=== PATIENT | female | born 1985 | race Caucasian/White ===

== ENCOUNTER 2020-11-15 19:05 | Emergency (ER) | payer MEDICAID, SELFPAY ==
[2020-11-15 19:08] VITALS: BP 118/78; PULSE 62; RESP 18; TEMP 37.1; O2SAT 95
--- NOTE | 2020-11-15 19:21 | ED.GENADUL_ITS ---
Discharge Plan Disposition Patient Disposition: HOME Condition: Stable Discharge Details Clinical Impression: Clavicle fracture Primary Care Provider: [place] Self ED Provider: Rosita Polo Home Meds and New Rx's Prescriptions: New oxycodone 5 mg tablet 5 mg PO Q6H PRN (Reason: pain) Qty: 10 RF: 0 No Action acetaminophen 500 mg Tablet 1,000 mg PO Q6H RF: 0 ibuprofen 200 mg Tablet 600 mg PO Q6H RF: 0 Discharge Instructions Instructions: Clavicle Fracture (ED) Additional Instructions: Rest, ice, and elevate the affected area as much as possible. Alternate tylenol and motrin as needed and directed for pain. Take the oxycodone for pain not relieved with Tylenol or Motrin. Follow-up with orthopedics within the next 1 to 2 weeks. Return immediately to the emergency department if you develop any worsening or new concerning symptoms. Referrals: Denny Cortez MD [ [facility] STAFF PHYSICIAN] - Discharge Data Discharge Date/Time-TO BE ENTERED AT DEPARTURE: 11/15/20 21:20 Discharge Physician: Rosita Polo Medical Decision Making 35-year-old female with no significant past medical history presents with left clavicle pain after fall and direct blow left clavicle and shoulder while cross- country skiing prior to arrival. No head injury. No complaint of difficulty breathing. Vitals within normal limits. She has crepitus and crunching sensation to palpation of left mid to lateral clavicle. There are no open wounds to left clavicle noted. No obvious significant deformities noted. She is holding her left upper extremity close to her body. She is neurovascularly intact. She has no midline spinal tenderness. No evidence of head trauma. Lungs clear bilaterally without tenderness to palpation of ribs. Abdomen soft and nontender without ecchymosis. Remainder of extremities without pain with range of motion or deformity. Suspect most likely left clavicle fracture. A dose of morphine given prior to placement of sling. Patient referred for clavicle x-ray. Clavicle x-ray notes a comminuted and displaced distal left clavicle fracture. Discussed with orthopedics and agrees with sling and patient will likely need surgical repair. Will discharge patient to home with oxycodone to go. Patient placed on orthopedic follow-up list. Medical Records Medical records reviewed: Yes I reviewed the patient's medical records. Imaging Data Radiologic Study: Radiologist's impression: XR Left Clavicle, Complete Exam date and time: 11/15/2020 8:01 PM Age: 35 years old Clinical indication: Injury or trauma; Fall; Blunt trauma (contusions or hematomas); Shoulder; Left; Injury details: Clavicle TECHNIQUE: Imaging protocol: XR Left clavicle complete. Any number of views. COMPARISON: No relevant prior studies available. FINDINGS: Bones/joints: There is a moderately displaced fracture of the distal aspect of the left clavicle with approximately 1.6 cm inferior displacement of the distal fracture fragment and mild overriding. There is comminution of the fracture with at least three comminuted fragments visualized, the largest measuring 0.9 x 3.6 cm. No healing callus formation is identified. There is no evidence for subluxation at the left acromioclavicular joint. Soft tissues: Normal. IMPRESSION: Comminuted and displaced distal left clavicle fracture, as described above. HPI General Mode of arrival: EMS . Date/Time Provider Initiated Documentation: 11/15/20 19:32 . Limitations to Documentation: no limitations . Information obtained by: patient . HPI Narrative: Patient is a 35-year-old female who presents with left clavicle pain after fall while cross-country skiing. Patient states she was skiing down a hill in the dark when she slipped and fell onto her left shoulder. She states she felt an instant crunch and knew immediately that she broke her clavicle. She states she was able to get up and ambulate and walk to her house. She denies any head injury, LOC, vomiting, chest pain, rib pain, difficulty breathing, abdominal pain, hip pain, left leg, right arm or right leg injury or pain. She received fentanyl in route per EMS and has relief of pain. She denies any chance of and states she has an IUD and has not been sexually active for the past 2 months. Related Data Home Medications Medication Instructions Recorded Confirmed oxycodone 5 mg PO Q6H PRN #10 tab 11/15/20 11/16/20 acetaminophen 1,000 mg PO Q6H 11/16/20 11/16/20 ibuprofen 600 mg PO Q6H 11/16/20 11/16/20 Previous Rx's Medication Instructions Recorded oxycodone 5 mg PO Q6H PRN #10 tab 11/15/20 Allergies Allergy/AdvReac Type Severity Reaction Status Date / Time No Known Allergies Allergy Unverified 11/16/20 15:40 General Stated Complaint: Trauma TRENT: 3 Review of Systems All systems reviewed & are unremarkable except as noted in HPI and below Constitutional Constitutional: Reports as per HPI, Denies chills and Denies fever(s) Eyes Eyes: Denies blurry vision ENT Ears, Nose, Mouth, and Throat: Denies dizziness, Denies sore throat and Denies throat swelling Cardiovascular Cardiovascular: Denies chest pain and Denies dyspnea Respiratory Respiratory: Denies cough and Denies dyspnea Gastrointestinal Gastrointestinal: Denies abdominal pain, Denies diarrhea and Denies vomiting Genitourinary Genitourinary: Denies hematuria and Denies dysuria Musculoskeletal Musculoskeletal: Denies back pain and Denies numbness Integumentary/Breasts Skin/Breast: Denies lesions and Denies rash Neurologic Neurologic: Denies dizziness, Denies localized weakness and Denies numbness Allergic/Immunologic Allergic/Immunologic: Denies throat swelling [facility] Medical History No significant past medical history Surgical History No significant past surgical history Social History Smoking/Tobacco Use Status: Never Smoking risk assessment performed?: Yes Alcohol Intake: current Alcohol Intake frequency: a few times a week Drug use: Never Substance use type: does not use Current gender identity: female Do you feel safe at home: Yes Do you feel safe in your relationship?: Yes Exam Const General: cooperative and healthy appearing Orientation: alert and awake [facility] Head: normal to inspection, no palpable skull fracture, normocephalic and atraumatic Ears: hearing grossly normal bilaterally and external ears normal General nose exam: external nose normal Face and sinus: normal facial exam Mouth: oral mucosae normal Eyes General: appearance normal, both eyes and all related structures Eyelids: eyelids normal Pupils: PERRL EOM: EOM intact bilaterally Neck Neck: normal visual inspection Lymphatic: no lymphadenopathy noted Chest Chest: normal inspection of the chest, normal palpation of entire chest wall and no tenderness Resp Effort & Inspection: normal respiratory effort and able to speak in complete sentences Auscultation: clear to auscultation bilaterally Cardio Rate: regular rate Rhythm: regular rhythm GI Inspection: normal to inspection and no abdominal wall ecchymosis Palpation: soft, not firm, no guarding, no hepatosplenomegaly, no masses and nontender Auscultation: normal bowel sounds Back/Spine/Pelvis Cervical Spine: No cervical spinal tenderness Thoracic/Lumbar Spine: thoracic and lumbar spine normal to inspection, No thoracic spinal tenderness and No lumbar spinal tenderness Pelvis: no pain with anterior-posterior compression Skin General skin exam: no rashes or lesions noted Neuro General: patient alert and patient awake Cognition: normal cognition Speech: speech normal Motor: muscle tone normal throughout Sensory Exam: no sensory deficits noted Extrem Other: Tenderness to palpation overlying mid to lateral left clavicle with crepitus and crunching sensation noted to palpation. There is no tenting of skin or open wounds noted to left clavicle. No tenderness to palpation of left upper arm, elbow or wrist. Left radial pulse intact. Normal capillary refill left upper extremity. Right upper, bilateral lower extremities without pain with range of motion, deformity or tenderness to palpation. Psych Appearance: grossly normal Mental Status: mental status grossly normal Speech and Movement: speech and movement normal Affect: normal affect Thought Process: normal Course Vital Signs Vital signs: Vital Signs Temperature 98.8 F 11/15/20 19:08 Pulse 62 11/15/20 19:08 Respiratory Rate 18 11/15/20 19:08 Blood Pressure 118/78 11/15/20 19:08 Pulse Oximetry 95 11/15/20 19:08 Temperature 98.8 F 11/15/20 19:08 Temperature Source Skin 11/15/20 19:08 Pulse 62 11/15/20 19:08 Respiratory Rate 18 11/15/20 19:08 Blood Pressure 118/78 11/15/20 19:08 Blood Pressure Position Sitting 11/15/20 19:08 Pulse Oximetry 95 11/15/20 19:08 Oxygen Delivery Method Room Air 11/15/20 19:08 Oxygen Flow Rate 0 11/15/20 19:08 Pain Level 6 11/15/20 19:08
--- NOTE | 2020-11-15 20:02 | DI.RAD_ITS ---
EXAM: XR CLAVICLE LT CLINICAL HISTORY: s/p fall while skiing, suspect fx. TECHNIQUE: 2D digital imaging was performed. COMPARISON: No exams were available for comparison FINDINGS: There is a comminuted fracture at the junction of the mid and lateral thirds of the clavicle with dis placement of the fracture fragments. The AC joint is not distracted. No osseous lesions. IMPRESSION: DATA REPOSITORY: RADIATION DOSE DELIVERED:
--- NOTE | 2020-11-15 20:11 | DI.VRAD_ITS ---
Addendum created by Yosi Roe MD on 11/15/2020 8:16:02 PM EST: Findings were discussed with Dr. Rosita Polo at 11/15/2020 8:15 PM EST. Initial report created on 11/15/2020 8:11:07 PM EST: PROCEDURE INFORMATION: Exam: XR Left Clavicle, Complete Exam date and time: 11/15/2020 8:01 PM Age: 35 years old Clinical indication: Injury or trauma; Fall; Blunt trauma (contusions or hematomas); Shoulder; Left; Injury details: Clavicle TECHNIQUE: Imaging protocol: XR Left clavicle complete. Any number of views. COMPARISON: No relevant prior studies available. FINDINGS: Bones/joints: There is a moderately displaced fracture of the distal aspect of the left clavicle with approximately 1.6 cm inferior displacement of the distal fracture fragment and mild overriding. There is comminution of the fracture with at least three comminuted fragments visualized, the largest measuring 0.9 x 3.6 cm. No healing callus formation is identified. There is no evidence for subluxation at the left acromioclavicular joint. Soft tissues: Normal. IMPRESSION: Comminuted and displaced distal left clavicle fracture, as described above. Dictated and Authenticated by: Yosi Roe MD. Ordering:NEGRO Becker MD
[2020-11-15] MEDS: Ondansetron O.D.T. 4 MG TABEF, 3 TABS/BTL PO (20:59)
[2020-11-15 21:02] VITALS: BP 119/80; PULSE 70; RESP 16; TEMP 36.7; O2SAT 100
--- NOTE | 2020-11-15 21:50 | NUR.NOTE ---
sling applied to left armNursing Note:
== END 2020-11-15 21:20 | disposition home or self-care (01) ==
LOC: ER 20:15
PROVIDERS: Emergency Provider Physician Assistant; PCP Naturopath
DX: S42.032A Displaced fracture of lateral end of left clavicle, initial encounter for closed fracture (principal); V00.321A Fall from snow-skis, initial encounter; Y93.24 Activity, cross country skiing
CPT/HCPCS: 81025; 96374; 99283; 73000; 99284

== ENCOUNTER 2020-11-16 09:49 | Outpatient (CLI) | payer MEDICAID, SELFPAY ==
[2020-11-18 15:56] LABS: COVID-19 RT-PCR UVMMC Result Negative (Negative)
== END 2020-11-16 10:09 ==
PROVIDERS: PCP Naturopath; Visit Provider Student in an Organized Health Care Education/Training Program
DX: Z11.59 Encounter for screening for other viral diseases (principal); Z01.818 Encounter for other preprocedural examination
CPT/HCPCS: U0003

== ENCOUNTER 2020-11-21 08:05 | Day surgery (SDC) | payer MEDICAID, SELFPAY ==
[2020-11-21] VITALS (10 sets, daily range): BP systolic 90–124; BP diastolic 54–78; PULSE 54–69; RESP 12–18; TEMP 36–37.1; O2SAT 95–100
--- NOTE | 2020-11-21 10:15 | DI.RAD_ITS ---
EXAM: XR CLAVICLE LT CLINICAL HISTORY: left clavical fracture TECHNIQUE: 2D and realtime digital imaging was performed. CONTRAST MATERIAL: Refer to procedure report. COMPARISON: CR,XR XR CLAVICLE LT from 11/15/2020 FINDINGS: Fluoroscopy was provided for Dr. Cortez during the performance of a reduction and internal fixatio n of the comminuted left clavicular fracture. Please refer to the procedure report for complete deta ils. Fluoro time: 12.2 second IMPRESSION: RADIATION DOSE DELIVERED:
[2020-11-21] MEDS: Lactated Ringers 1,000 ML 80 ML IV (11:14)
--- NOTE | 2020-11-21 11:15 | HPE_ITS ---
Date of service: 11/21/20 Time of Service: 11:15 Assessment and Plan Assessment and plan (1) Closed left clavicular fracture: Status: Acute Assessment and plan: Arely is a 35-year-old who suffered a left clavicle fracture. Given her young age, active lifestyle, and fracture displaced with comminution, I did recommend open reduction and internal fixation. I previously discussed the surgery with her over the phone. Today I also reviewed the surgery. I discussed the risk of the procedure to include bleeding, infection, pain, stiffness, damage to nerves and vessels, damage to muscles and tendons, malunion, nonunion, hardware prominence, hardware failure. All of her questions were answered. After thorough discussion of the surgery and these risk, she elects to proceed. Qualifiers: Encounter type: initial encounter Clavicle location: shaft Fracture alignment: displaced Qualified Code(s): S42.022A - Displaced fracture of shaft of left clavicle, initial encounter for closed fracture History of Present Illness History of Present Illness Chief Complaint: Left Clavicle Fracture Chest pain or shortness of breath Narrative: Vaughn is a 35-year-old active female who fell to her left side. She suffered a clavicle fracture was diagnosed with emergency department. This fracture had significant comminution and displacement. I discussed the case with Vaughn over the phone. She had significant pain and felt will be admitted with daily living activities. She denies numbness or tingling down the arm. Reason for continued she has no other medical conditions. She has been using ibuprofen primarily for pain control. She denies any chest pain or shortness of breath. She has had no sick contacts. Review of Systems All systems reviewed & are unremarkable except as noted in HPI and below [facility] Medical History (Updated 11/21/20 @ 10:41 by Natalia Stringer) No significant past medical history Surgical History (Updated 11/21/20 @ 10:41 by Natalia Stringer) No significant past surgical history Social History Smoking/Tobacco Use Status: Never Smoking risk assessment performed?: Yes Alcohol Intake: current Alcohol Intake frequency: a few times a week Drug use: Never Substance use type: does not use Current gender identity: female Do you feel safe at home: Yes Do you feel safe in your relationship?: Yes Meds Home Medications and Allergies Home Medications Medication Instructions Recorded Confirmed Type acetaminophen 1,000 mg PO Q6H 11/16/20 11/21/20 History ibuprofen 600 mg PO Q6H 11/16/20 11/21/20 History oxycodone 5 mg PO Q8H PRN 11/21/20 11/21/20 History Allergies Allergy/AdvReac Type Severity Reaction Status Date / Time No Known Allergies Allergy Unverified 11/16/20 15:40 Exam Const General: cooperative, healthy appearing, comfortable and no acute distress Nutritional Appearance: average body habitus Orientation: alert, awake and oriented x3 Resp Auscultation: clear to auscultation bilaterally Cardio Rate: regular rate Rhythm: regular rhythm Extrem Other: Notable deformity to the left clavicle. No overlying skin changes or disruptions. Results Imaging Imaging Studies: X-ray of the left clavicle shows significant comminution with multiple pieces of displacement of the fragments both super iorly and with shortening. Last Vital Signs Temp 37.1 C 11/21/20 10:44 Pulse 59 L 11/21/20 10:44 Resp 16 11/21/20 10:44 BP 118/78 11/21/20 10:44 Pulse Ox 96 11/21/20 10:44
[2020-11-21] MEDS: ceFAZolin 2 GM/50 ML BAG IVPB (11:42)
[2020-11-21] MEDS: Bupivacaine 0.25% Pres-Free 30 ML VIAL (12:52)
[2020-11-21] MEDS: EPINEPHrine 1 MG/ML AMP pres-free (12:53)
--- NOTE | 2020-11-21 13:56 | PDOC.DSDIS_ITS ---
Discharge Plan Disposition Patient Disposition: HOME Condition: Good Discharge Details Reason For Visit: ORIF left clavicle Attending Provider: Denny Cortez Primary Care Provider: [place] Self Home Meds and New Rx's Prescriptions: Continued acetaminophen 500 mg Tablet 1,000 mg PO Q6H RF: 0 ibuprofen 200 mg Tablet 600 mg PO Q6H RF: 0 Discontinued oxycodone 5 mg tablet 5 mg PO Q6H PRN (Reason: pain) Qty: 10 RF: 0 No Action oxycodone 5 mg Tablet 5 mg PO Q8H PRNRF: 0 Discharge Instructions Additional Instructions: Clavicle Fracture Discharge Instructions Activity: You should stay in the sling for the first 2 weeks until your follow- up. You may come out of the sling for gentle motion and hygiene but should largely remain in the sling to allow the incision site to heal and for comfort. You may come out of the sling when resting and allow the arm to rest in your lap. Gentle motion of the elbow, hand, wrist, and fingers is okay and encouraged after the first few days, but no repetitive activites nor heavy li fting. You may apply ice over the wound. Do not try to move the shoulder more than some pendulums until your follow-up. Medications: - You should take Tylenol and Ibuprofen around the clock. - You have previously been prescribed Oxycodone for breakthrough pain. Dressings: - The initial surgical dressing should stay in place for 1 week. It may then be removed and kept clean and dry. You should cover with a light gauze dressing if the dressing comes off before one week. After the first week, it needs no dressing - You may shower after 3 days and get the wound wet but it is best to avoid direct spray to the dressing as it will then need to be changed. Follow-up: 10-14 days Referrals: Denny Cortez MD [ [facility] STAFF PHYSICIAN] - Equipment/Supplies: Sling Activity:: Activity as Tolerated Remove Dressings/Wound Care:: 72 hours Shower/Bathe:: 72 hours Diet:: As Tolerated Discharge Orders Discharge Orders: Discharge Order (Routine); Ordered 11/21/20 Ordered By: Keila Corley DS: Diagnosis Discharge Diagnosis (1) Closed left clavicular fracture: Status: Acute
[2020-11-21] MEDS: Ketorolac 30 MG/ML VIAL IVP (14:09)
[2020-11-21] MEDS: fentaNYL 100 MCG/2 ML VIAL IVP (14:23)
[2020-11-21] MEDS: oxyCODONE 5 MG TAB PO (15:15)
--- NOTE | 2020-11-21 19:05 | W.PM.OP ---
Date of service: 11/21/20 Time of Service: 13:05 Operative Note Operative Note DATE OF PROCEDURE: 11/21/20 PRE-OP DIAGNOSIS: Clavicle Fracture - Left POST-OP DIAGNOSIS: same PROCEDURE: Open Reduction and Internal Fixation of Left Clavicle Fracture SURGEON: Denny Cortez DIRECTOR AMBULATORY: Monica Cai ANESTHESIA: CHANDRIKA ESTIMATED BLOOD LOSS: 50 COMPLICATIONS: None Patient was transported to: PACU Patient's condition: stable Implants: Synthes Locking Distal Clavicle Plate Indications: Sebastián is a 35-year-old who suffered a fall onto her left arm. She had a comminuted and displaced left clavicle fracture. Given the displacement, comminution, and her symptoms, I recommended open reduction internal fixation. I discussed the risk of the procedure to include bleeding, infection, pain, stiffness, damage to nerves and vessels including anterior chest wall numbness, hardware prominence, hardware failure, malunion, nonunion, need for repeat procedures including plate removal. Findings: There is a comminuted fracture of the distal one third of the clavicle. The proximal fragment was impaled on the undersurface of the fascia. The large free piece seen on the x-ray which was thought to be more of a butterfly fragment was actually a longitudinal split of the larger distal fragment. I reduced the distal fragment into 1 using 2 lag screws and then placed a distal clavicle plate spanning the main fracture line as well as the lag pieces of the distal fragment with good reduction. Procedure Description: Sebastián was greeted in the preoperative holding area. Her identity was confirmed the correct side was identified. The consent was read the patient and signed. History and physical was performed and updated in the system. She was then taken back to the operating room. A general anesthetic was administered. She was placed in the beachchair position using the shoulder table. The head was secured and well-padded college or [employer] department head. The C-arm was positioned over the top of the bed and was checked to make sure we are able to attain adequate x-rays. The left shoulder and clavicle were then prepped with ChloraPrep and draped in a standard fashion. Prophylactic antibiotics in the form of cefazolin were administered. A timeout was performed for safe surgery. Incision was made over the anterior aspect of the clavicle spanning the fracture site. The dissection was taken sharply through the skin. There were no apparent crossing branches of subcutaneous nerves. The platysma was then incised with electrocautery. The deep fascia of the clavipectoral fascia, was notably torn at the level of the fracture site. Using this spot as an entry point I then incised the deep fascia against the clavicle using electrocautery. This was taken medial and lateral. There was notable displacement of the fragments in the proximal piece was seen embedded into the clavipectoral fascia, responsible for the tear appreciated earlier. The lateral fracture segment was actually split lengthwise for about 4 cm. This was more than just a butterfly fragment as it only came from that lateral fragment making the true fracture plane a transverse fracture of the one third clavicle. I tried to clamp these fragments together and then reduced into the main medial segment. However, it became quite difficult. Therefore, I focused on reducing the lateral pieces into 1. These were reduced using clamps and with K wires. I then placed 2 screws to secure the splint. With the split anatomically reduced with clamps and K wires I placed two 2.7 millimeter screws from anterior to posterior. These had excellent fixation and bite and I was then able to remove the K wire and the clamps. I then reduced the joint lateral fragment with the medial fragment. I was able to gain nearly anatomic reduction. This was held with a clamp and a K wire was then advanced from anterior to posterior holding the fracture site in reduced position. The incision was then extended laterally all the way to the AC joint. Given the comminution and the fragment of the lateral clavicle I wanted to bridge the segment and therefore go all the way to the far lateral aspect of the clavicle. I chose a left side lateral clavicle plate. This was placed onto the clavicle and noted to be of adequate fit. It was held in position and fluoroscopy was used to confirm appropriate positioning. I then placed a nonlocking screw in the distal segment bringing the distal aspect of the plate down to bone. Likewise, I placed a nonlocking 3.5 millimeter screw in the proximal segment bringing this medial into the plate down the bone. Once again, fluoroscopy was utilized to confirm appropriate positioning of the plate. The fracture remained reduced. The distal segment the plate was then filled with 2.7 mm locking screws. I then placed a 3.5 mm locking screw in the far medial hole of the plate. A 3.5 mm nonlocking screw was placed close to the fracture fragment on the medial side. The screw head from the nonlocking screw placed initially, given that place that slightly oblique of an angle, was prominent. Therefore removed and replaced with a locking screw. The wounds and thoroughly irrigated. Final x-rays were obtained. This showed adequate reduction. The skin, subcutaneous tissue, and deep fascial layer including periosteum was injected with 0.5% Bupivacaine with epinephrine. Of the pectoral fascia and deep fascia of the clavicle was closed with 0 Vicryl. I then closed the platysma with a running 3-0 Vicryl. A few interrupted 3-0 Vicryl's were also placed to help bring the subcutaneous tissue together. The skin was closed with a running 4-0 Monocryl followed by skin affix skin glue and a Mepilex silver dressing. Drapes were removed and she was placed into a sling. At the end the case all counts were correct. She tolerated procedure well without complication. She was transferred to the PACU in stable condition.
== END 2020-11-21 16:26 | disposition home or self-care (01) ==
LOC: SUR 11-22 08:06
PROVIDERS: PCP Naturopath; Visit Provider Student in an Organized Health Care Education/Training Program
PROC: (CPT 23515; principal; 2020-11-21 11:45)
DX: S42.022A Displaced fracture of shaft of left clavicle, initial encounter for closed fracture (principal); W00.0XXA Fall on same level due to ice and snow, initial encounter; Y93.23 Activity, snow (alpine) (downhill) skiing, snowboarding, sledding, tobogganing and snow tubing
CPT/HCPCS: 23515; C1713; 81025; 73000; J0171; J0690; J1100; J1885; J2405; J3010

== ENCOUNTER 2020-12-04 13:11 | Outpatient (CLI) | payer MEDICAID, SELFPAY ==
--- NOTE | 2020-12-04 13:00 | DI.RAD_ITS ---
EXAM: XR CLAVICLE LT CLINICAL HISTORY: f/u fracture. TECHNIQUE: 2D digital imaging was performed. COMPARISON: CR,XR XR CLAVICLE LT from 11/15/2020 XR CLAVICLE LT from 11/21/2020 FINDINGS: BONES: There are stable post operative changes present. No new fracture or dislocation. JOINTS: The joint spaces are well maintained. No joint effusion is present. SOFT TISSUE: Normal. IMPRESSION: Stable postoperative changes. DATA REPOSITORY: RADIATION DOSE DELIVERED:
== END 2020-12-04 13:31 ==
PROVIDERS: PCP Naturopath; Referring Provider Naturopath; Visit Provider Physician Assistant
DX: S42.022A Displaced fracture of shaft of left clavicle, initial encounter for closed fracture (principal)
CPT/HCPCS: 73000

== ENCOUNTER 2021-01-01 10:55 | Outpatient (CLI) | payer MEDICAID, SELFPAY ==
--- NOTE | 2021-01-01 08:45 | DI.RAD_ITS ---
EXAM: XR CLAVICLE LT LIMITED 1V CLINICAL HISTORY: f/u fracture. TECHNIQUE: 2D digital imaging was performed. COMPARISON: CR XR CLAVICLE LT from 12/04/2020 FINDINGS: Again noted is a dorsal fixation plate across the healing comminuted fracture site at the midshaft of the clavicle. There is no hardware fracture. The 2 oblique screws closest to the actual fracture a ppears slightly different in position although this may be projectional. There is no radiographic ev idence of osteomyelitis. Fracture line is less evident. AC joint is not distracted. IMPRESSION: DATA REPOSITORY: RADIATION DOSE DELIVERED:
== END 2021-01-01 10:56 | disposition home or self-care (01) ==
LOC: DIORS 10:55
PROVIDERS: PCP Naturopath; Referring Provider Naturopath; Visit Provider Physician Assistant
DX: S42.022A Displaced fracture of shaft of left clavicle, initial encounter for closed fracture (principal)
CPT/HCPCS: 73000

== ENCOUNTER 2021-02-12 09:53 | Outpatient (CLI) | payer MEDICAID, SELFPAY ==
--- NOTE | 2021-02-12 09:28 | DI.RAD_ITS ---
EXAM: XR CLAVICLE LT CLINICAL HISTORY: s/p ORIF of left clavicle. TECHNIQUE: 2D digital imaging was performed. COMPARISON: CR XR CLAVICLE LT LIMITED 1V from 01/01/2021 FINDINGS: Again noted is the dorsal fusion plate across the midshaft fracture site. Secured by multiple screws and there are again noted 2 independent screws. Fracture line is still seen but there is no further displacement. No evidence of hardware fracture. AC joint is not distracted. IMPRESSION: DATA REPOSITORY: RADIATION DOSE DELIVERED:
== END 2021-02-12 09:54 | disposition home or self-care (01) ==
LOC: DIORS 09:53
PROVIDERS: PCP Naturopath; Referring Provider Naturopath; Visit Provider Physician Assistant
DX: S42.022D Displaced fracture of shaft of left clavicle, subsequent encounter for fracture with routine healing (principal)
CPT/HCPCS: 73000

== ENCOUNTER 2021-02-19 04:10 | Outpatient (CLI) | payer MEDICAID, SELFPAY ==
[2021-02-19 12:10] LABS: Source Nasal/Nares
[2021-02-19 17:16] LABS: COVID-19 PCR Negative (Negative)
== END 2021-02-19 04:11 | disposition home or self-care (01) ==
LOC: LBO 04:10
PROVIDERS: PCP Naturopath; Visit Provider Student in an Organized Health Care Education/Training Program
DX: Z20.822 Contact with and (suspected) exposure to COVID-19 (principal); Z01.818 Encounter for other preprocedural examination
CPT/HCPCS: 87635

== ENCOUNTER 2021-02-21 07:55 | Day surgery (SDC) | payer MEDICAID, SELFPAY ==
--- NOTE | 2021-02-21 07:42 | W.PM.DSUDISC ---
Discharge Plan Disposition Patient Disposition: HOME Condition: Good Discharge Details Reason For Visit: Removal Hardware L Clavicle Attending Provider: Denny Cortez Primary Care Provider: Checo Self Home Meds and New Rx's Prescriptions: New acetaminophen 500 mg capsule 1,000 mg PO Q8H PRN PRNQty: 90 RF: 0 ibuprofen 600 mg tablet 600 mg PO TID PRN (Reason: pain) Qty: 30 RF: 0 Discontinued acetaminophen 500 mg Tablet 1,000 mg PO Q6H RF: 0 ibuprofen 200 mg Tablet 600 mg PO Q6H RF: 0 Discharge Instructions Additional Instructions: Clavicle Hardware Removal Discharge Instructions Activity: You may wiggle your fingers and move your wrist and elbow. You may increase use of the left shoulder as tolerated. Dressings: You should keep the initial dressing on for one week. After one week, you may remove it. You may shower 48 hours after your surgery. Medications: - You should take Tylenol and Ibuprofen around the clock for pain control. Follow-up: 2 weeks Referrals: Denny Cortez MD [ [facility] STAFF PHYSICIAN] - Activity:: Activity as Tolerated Shower/Bathe:: 48 hours and Cover Diet:: As Tolerated Discharge Orders Discharge Orders: Discharge Order (Routine); Ordered 02/21/21 Ordered By: Rolan Galan DS: Diagnosis Discharge Diagnosis (1) Pain from implanted hardware: Status: Acute
[2021-02-21 08:22] VITALS: BP 113/72; PULSE 58; RESP 16; TEMP 35.9; O2SAT 99
[2021-02-21] MEDS: Lactated Ringers 1,000 ML 80 ML IV (08:41)
[2021-02-21] MEDS: ceFAZolin 2 GM/50 ML BAG IVPB (10:06)
[2021-02-21] MEDS: Sodium Bicarbonate 50 MEQ/50 ML VIAL (10:15)
--- NOTE | 2021-02-21 10:53 | W.PM.OP ---
Date of service: 02/21/21 Time of Service: 10:32 Operative Note Operative Note DATE OF PROCEDURE: 02/21/21 PRE-OP DIAGNOSIS: Painful and prominent left clavicle hardware PROCEDURE: Removal of hardware from left clavicle, deep and buried SURGEON: Denny Cortez ANESTHESIA TYPE: General:No Airway Refer to Anesthesia Record ESTIMATED BLOOD LOSS: 0 PATHOLOGY: none sent COMPLICATIONS: None Patient was transported to: same day Patient's condition: stable Implants: Two 2.7 millimeter screws removed. Findings: Two 2.7 millimeter screws which were placed to lag a fracture pieces were quite prominent. They removed with a very small incision without difficulty. Procedure Description: Vaughn was greeted in the preoperative holding area. Her identity was confirmed the correct side was identified and marked. The consent was reviewed the patient and signed. She was taken to the operating room placed in supine position. The left shoulder was bumped and elevated and the head turned away. The clavicle region was then prepped with ChloraPrep. She is draped in a standard fashion in the supine position. Prophylactic anabiotic's in the form of cefazolin were administered. A timeout was performed for safe surgery. The surgical site was then anesthetized with a mixture of 1% lidocaine with epinephrine, buffered with sodium bicarbonate. The screws were prominent and a 2 cm incision was then made overlying the 2 screw heads. The dissection was carried out the skin only. Once the screws were palpated a small incision was made within the platysma and the clavipectoral fascia. The screw head was visible and removed without difficulty. This was repeated for the second screw. There was no difficulty with move the screws. There is no gross change in the position of the clavicle. There is no loose pieces. There is minimal trauma because the deeper tissue. The wound was then irrigated. The fascia was reapproximated with a #2-0 Vicryl. The skin was closed with a running, subcuticular 4-0 Monocryl. This was reinforced with skin glue and covered with a Mepilex silver dressing. At the end of the case all counts were correct. She tolerated procedure well and was transferred back to the same-day surgery area in stable condition.
[2021-02-21 11:18] VITALS: BP 113/76; PULSE 57; RESP 16; TEMP 36.1; O2SAT 98
== END 2021-02-21 11:48 | disposition home or self-care (01) ==
LOC: SUR 07:56
PROVIDERS: PCP Naturopath; Visit Provider Student in an Organized Health Care Education/Training Program
PROC: (CPT 20680; principal; 2021-02-21 10:00)
DX: T85.848A Pain due to other internal prosthetic devices, implants and grafts, initial encounter (principal)
CPT/HCPCS: 20680; 81025; J0690; J1885; J2250; J2405; J2704

== ENCOUNTER 2021-06-25 13:54 | Outpatient (CLI) | payer MEDICAID, SELFPAY ==
--- NOTE | 2021-06-25 09:00 | DI.RAD_ITS ---
Exam(s) XR CLAVICLE LT EXAM: XR CLAVICLE LT INDICATION: left clavicle ORIF. COMPARISON: CR XR CLAVICLE LT from 02/12/2021 TECHNIQUE: 2D digital imaging was performed. FINDINGS: Fixation plate mid distal clavicle, unchanged in alignment. Continued fracture healing. No new abno rmalities. DATA REPOSITORY: RADIATION DOSE DELIVERED:
== END 2021-06-25 13:55 | disposition home or self-care (01) ==
LOC: DIORS 13:54
PROVIDERS: PCP Naturopath; Referring Provider Naturopath; Visit Provider Physician Assistant
DX: S42.002D Fracture of unspecified part of left clavicle, subsequent encounter for fracture with routine healing (principal); T84.84XA Pain due to internal orthopedic prosthetic devices, implants and grafts, initial encounter; X58.XXXD Exposure to other specified factors, subsequent encounter; Y83.8 Other surgical procedures as the cause of abnormal reaction of the patient, or of later complication, without mention of misadventure at the time of the procedure
CPT/HCPCS: 73000

== ENCOUNTER 2021-09-06 16:15 | Outpatient (REF) | payer MEDICAID, SELFPAY ==
[2021-09-06 22:48] LABS: ALT 24 U/L (14-59); AST 16 U/L (15-37); Albumin 4.2 g/dL (3.4-5.0); Alkaline Phosphatase 65 U/L (46-116); Anion Gap 7.9 mmol/L (3-11); BUN 11 mg/dL (7-18); Bilirubin, Total 0.4 mg/dL (0.2-1.0); CO2 29.1 mmol/L (21.0-32.0); CREATININE 0.7 mg/dL (0.55-1.02); Calcium 9.2 mg/dL (8.5-10.1); Calculated LDL 120 mg/dL (<100); Chloride 103 mmol/L (98-107); Cholesterol 194 mg/dL (<200); Glucose 89 mg/dL (74-106); HDL Cholesterol 65 mg/dL (40-60); Potassium 4.5 mmol/L (3.5-5.1); Sodium 140 mmol/L (136-145); Total Protein 7.2 g/dL (6.4-8.2); Triglyceride 47 mg/dL (<150)
== END 2021-09-06 16:16 | disposition home or self-care (01) ==
LOC: NCHCN 16:15
PROVIDERS: PCP Naturopath; Visit Provider Nurse Practitioner Family
DX: Z00.00 Encounter for general adult medical examination without abnormal findings (principal)
CPT/HCPCS: 80053; 80061

== ENCOUNTER 2021-09-20 12:25 | Outpatient (REF) | payer MEDICAID, SELFPAY ==
--- NOTE | 2021-09-20 10:25 | PAPFT_PTH ---
PATIENT: Bonny Kurtz LOC: [facility]#:[id number] AGE/SX: 36/F ROOM: RE09/20/[address]: Dana Barrett : 1985 BED: DIS: 09/20/2021 SPEC #: [id number] RECD: 09/20/21 13:25 STATUS: YADY RESara #: [id number] KENZIE: 09/20/21 10:[address]: Dana Barrett DEPT: [facility] Cytology RECD BY: Belgica Staley ENTERED: 09/20/21 13:25 SP TYPE: PAPFT OTHR DR: Checo Self Tissues: 1 - CX/ENDOCX FOR PAP SMEARS Procedures: PAP THIN PREP/[facility] Screening Comments: (UNSATISFACTORY FOR EVALUATION)
== END 2021-09-20 12:26 | disposition home or self-care (01) ==
LOC: NCHCN 12:25
PROVIDERS: PCP Naturopath; Visit Provider Nurse Practitioner Family
DX: Z12.4 Encounter for screening for malignant neoplasm of cervix (principal); R87.615 Unsatisfactory cytologic smear of cervix
CPT/HCPCS: 88142

== ENCOUNTER 2021-10-08 03:01 | Outpatient (CLI) | payer MEDICAID, SELFPAY ==
[2021-10-08 10:36] LABS: Source Nasal/Nares
[2021-10-08 17:39] LABS: COVID-19 PCR Negative (Negative)
== END 2021-10-08 03:02 | disposition home or self-care (01) ==
LOC: LBO 03:01
PROVIDERS: PCP Nurse Practitioner Family; Visit Provider Student in an Organized Health Care Education/Training Program
DX: Z20.822 Contact with and (suspected) exposure to COVID-19 (principal)
CPT/HCPCS: 87635

== ENCOUNTER 2021-10-09 12:05 | Day surgery (SDC) | payer MEDICAID, SELFPAY ==
[2021-10-09] VITALS (7 sets, daily range): BP systolic 102–121; BP diastolic 70–82; PULSE 47–61; RESP 11–16; TEMP 35.9–36.4; O2SAT 98–100; BMI 23.8
--- NOTE | 2021-10-09 12:37 | W.ANESPRE ---
General Info Date of Service Date Performed: 10/09/21 Height: 5 ft 7 in Weight: 68.946 kg Body Mass Index (BMI): 23.8 Surgical Procedure: Operation Date: 10/09/21 15:10 Proposed Procedures Side Surgeon p Hardware Removal (L) Clavicle Left Denny Cortez MD Meds Allergies and Home Medications Allergies Allergy/AdvReac Type Severity Reaction Status Date / Time No Known Allergies Allergy Unverified 10/09/21 12:34 Home Medication Medication Instructions Recorded acetaminophen 1,000 mg PO Q8H PRN PRN #90 cap 02/21/21 ibuprofen 600 mg PO TID PRN #30 tab 02/21/21 sumatriptan succinate 25 mg PO DIRECTED 10/08/21 Current Visit Medications: Current Medications Generic Name Dose Route Start Last Admin Trade Name Freq PRN Reason Stop Dose Admin Ringer's Solution 1,000 mls @ 80 mls/hr 10/09/21 06:00 IV 11/07/21 23:59 INFUSION SILVERIO Cefazolin Sodium/Dextrose 2 gm in 50 mls @ 100 mls/hr 10/09/21 06:00 Ancef Duplex IVPB 11/07/21 23:59 PREOP SILVERIO IV Miscellaneous Supplies 1 each 10/09/21 06:00 Iv Access IV 11/07/21 23:59 DIRECTED SILVERIO Sodium Chloride 0 ml 10/09/21 06:00 Normal Saline Flush 10 Ml Syr IV 11/07/21 23:59 PRN PRN Sodium Chloride 0 ml 10/09/21 06:00 Normal Saline 10 Ml Vial IJ 11/07/21 23:59 DIRECTED PRN Sterile Water 0 ml 10/09/21 06:00 Water,Injection,Sterile 10 Ml Vial IJ 11/07/21 23:59 DIRECTED PRN PFSH Active Problems Active Problems: Problem Status Onset Code Closed left clavicular fracture S42.002A Pain from implanted hardware T85.848A Medical History Active Problem List (Updated 10/09/21 @ 12:37 by Antonia Urena) Closed left clavicular fracture (Acute) Pain from implanted hardware (Acute) Medical History (Updated 10/08/21 @ 09:28 by Oleg Reeder) Central precocious puberty type 1 Pt is unsure if it is type 1 or 2 No significant past medical history Surgical History Surgical History (Updated 10/09/21 @ 12:37 by Antonia Urena) Hx of colonoscopy Hx of esophagogastroduodenoscopy Hx of wisdom tooth extraction Tobacco Smoking/Tobacco Use Status: Never Alcohol Alcohol Intake: current Alcohol intake frequency: a few times a week Substance Use Substance use: Never Substance use type: does not use Vital Signs and Lab Results Lab Results Blood Type / Crossmatch: No Data to Display Complete Blood Count: No Data to Display Complete Metabolic Panel: No Data to Display Liver Function Panel: No Data to Display Coagulation Panel: No Data to Display Cardiac Panel: No Data to Display Arterial Blood Gas: No Data to Display Venous Blood Gas: No Data to Display Pancreas Panel: No Data to Display Thyroid Panel: No Data to Display Infectious Disease: Coronavirus (COVID-19)(PCR) Negative (Negative) 10/08/21 08:55 10/08/21 Coronavirus 2019 Source Nasal/Nares 10/08/21 08:55 10/08/21 Blood Cultures: No Data to Display Toxicology Panel: No Data to Display Panel: No Data to Display Anesthesia Assessment and Plan Anesthesia History Personal History: No History of Anesthesia Complications Family History: No Family History of Anesthesia Complications Exercise Tolerance Exercise Tolerance: Metabolic Equivalents>4 Pertinent Negatives Pertinent Negatives: No Symptoms of GERD, No Major Cardiovascular Symptoms or Complaints, No Major Pulmonary Symptoms or Complaints and No History of CVA/TIA Cardiac & Pulmonary Exam Cardiac Exam: Normal S1/S2 Heart Sounds Pulmonary Exam: Clear Bilateral Breath Sounds Implantable Cardiac Device Does patient have a Pacemaker or an ICD?: No Airway Exam Known Difficult Airway: No Mallampati Class: 1 Mouth Opening: Normal (> 3cm) Thyromental Distance: Greater than 3 cm Neck Range of Motion: Full ROM Neck Circumference: Normal Teeth Condition: Normal Dentition Airway Comments: High angle narrow palate ASA Classification ASA Score: ASA 2 Emergency Case?: No NPO Status NPO Status: NPO Clears >2 hours, Solids >8 hours Status Status: Negative HCG Anesthesia Plan Resuscitation Status: Full Code Anesthesia Technique: General Anesthesia Airway Planned: LMA Monitors Used: Standard Monitors
[2021-10-09] MEDS: Lactated Ringers 1,000 ML 80 ML IV (13:00)
--- NOTE | 2021-10-09 13:16 | PDOC.DSDIS_ITS ---
Documented by User: VALDEMAR Ibarra 10/09/21 13:23 Discharge Plan Disposition Patient Disposition: HOME Condition: Good Discharge Details Reason For Visit: Hardware removal L clavicle Attending Provider: Denny Cortez Primary Care Provider: Dana Barrett Home Meds and New Rx's Prescriptions: New hydrocodone-acetaminophen 5-325 mg tablet 1 tab PO Q6H PRN (Reason: pain) Qty: 6 RF: 0 ibuprofen 600 mg tablet 600 mg PO TID PRN (Reason: pain) Qty: 90 RF: 0 Continued sumatriptan succinate 25 mg tablet 25 mg PO DIRECTED RF: 0 Discontinued acetaminophen 500 mg capsule 1,000 mg PO Q8H PRN PRNQty: 90 RF: 0 ibuprofen 600 mg tablet 600 mg PO TID PRN (Reason: pain) Qty: 30 RF: 0 Discharge Instructions Additional Instructions: Hardware Removal Discharge Instructions Activity: You should wear the sling for comfort. No forceful pushing or pulling with your left arm. You may come out of the sling as you desire based on your comfort/pain. Medications: - You should take Tylenol and Ibuprofen around the clock. - You have been prescribed Hydrocodone for breakthrough pain. - You may apply ice to the surgical site. Dressings: - Leave the dressing in place for 1 week or until follow-up. Avoid soaking the dressing. - You may shower after 3 days but try to avoid soaking the dressing. You may find covering with a Saran Wrap or Cling Wrap to be helpful. Follow-up: 10 days Referrals: Denny Cortez MD [ [facility] STAFF PHYSICIAN] - Equipment/Supplies: Sling Activity:: Activity as Tolerated Shower/Bathe:: 72 hours Diet:: As Tolerated Discharge Orders Discharge Orders: Discharge Order (Routine); Ordered 10/09/21 Ordered By: Rolan Galan DS: Diagnosis Discharge Diagnosis (1) Closed left clavicular fracture: Status: Acute Documented by User: Denny Cortez MD 10/09/21 14:41 Discharge Plan Disposition Patient Disposition: HOME Condition: Good Discharge Details Reason For Visit: Hardware removal L clavicle Attending Provider: Denny Cortez Primary Care Provider: Dana Barrett Home Meds and New Rx's Prescriptions: New hydrocodone-acetaminophen 5-325 mg tablet 1 tab PO Q6H PRN (Reason: pain) Qty: 6 RF: 0 ibuprofen 600 mg tablet 600 mg PO TID PRN (Reason: pain) Qty: 90 RF: 0 Continued sumatriptan succinate 25 mg tablet 25 mg PO DIRECTED RF: 0 Discontinued acetaminophen 500 mg capsule 1,000 mg PO Q8H PRN PRNQty: 90 RF: 0 ibuprofen 600 mg tablet 600 mg PO TID PRN (Reason: pain) Qty: 30 RF: 0 Discharge Instructions Additional Instructions: Hardware Removal Discharge Instructions Activity: You should wear the sling for comfort. No forceful pushing or pulling with your left arm. You may come out of the sling as you desire based on your comfort/pain. Medications: - You should take Tylenol and Ibuprofen around the clock. - You have been prescribed Hydrocodone for breakthrough pain. - You may apply ice to the surgical site. Dressings: - Leave the dressing in place for 1 week or until follow-up. Avoid soaking the dressing. - You may shower after 3 days but try to avoid soaking the dressing. You may find covering with a Saran Wrap or Cling Wrap to be helpful. Follow-up: 10 days Referrals: Denny Cortez MD [ [facility] STAFF PHYSICIAN] - Equipment/Supplies: Sling Activity:: Activity as Tolerated Shower/Bathe:: 72 hours Diet:: As Tolerated Discharge Orders Discharge Orders: Discharge Order (Routine); Ordered 10/09/21 Ordered By: Rolan Galan
--- NOTE | 2021-10-09 13:18 | W.ANESPRE ---
General Info Date of Service Date Performed: 10/09/21 Height: 5 ft 7 in Weight: 68.946 kg Body Mass Index (BMI): 23.8 Surgical Procedure: Operation Date: 10/09/21 15:10 Proposed Procedures Side Surgeon p Hardware Removal (L) Clavicle Left Denny Cortez MD Actual Procedures Side Surgeon p Hardware Removal (L) Clavicle Left Denny Cortez MD Pre-Op Diagnosis Post-Op Diagnosis PAINFUL ORTHOPAEDIC HARDWARE, LEFT SHOULDER PAINFUL ORTHOPAEDIC HARDWARE, LEFT SHOULDER Meds Allergies and Home Medications Allergies Allergy/AdvReac Type Severity Reaction Status Date / Time No Known Allergies Allergy Unverified 10/09/21 12:34 Home Medication Medication Instructions Recorded sumatriptan succinate 25 mg PO DIRECTED 10/08/21 acetaminophen 1,000 mg PO TID #90 tab 10/09/21 hydrocodone-acetaminophen 1 tab PO Q6H PRN #6 tab 10/09/21 ibuprofen 600 mg PO TID PRN #90 tab 10/09/21 Current Visit Medications: Current Medications Generic Name Dose Route Start Last Admin Trade Name Freq PRN Reason Stop Dose Admin Acetaminophen 650 mg 10/09/21 13:15 Acetaminophen 325 Mg Tab PO Q4H PRN PRN Hydrocodone Bitart/Acetaminophen 0 tab 10/09/21 13:15 Hydrocodone 5/Acetaminophen 325 Tab PO Q3H PRN PRN Pain Ringer's Solution 1,000 mls @ 80 mls/hr 10/09/21 06:00 IV 11/07/21 23:59 INFUSION SILVERIO Cefazolin Sodium/Dextrose 2 gm in 50 mls @ 100 mls/hr 10/09/21 06:00 Ancef Duplex IVPB 11/07/21 23:59 PREOP SILVERIO Ondansetron HCl 4 mg/ Sodium 52 mls @ 200 mls/hr 10/09/21 13:15 Chloride IVPB Q6H PRN PRN IV Miscellaneous Supplies 1 each 10/09/21 06:00 Iv Access IV 11/07/21 23:59 DIRECTED SILVERIO Sodium Chloride 0 ml 10/09/21 06:00 Normal Saline Flush 10 Ml Syr IV 11/07/21 23:59 PRN PRN Sodium Chloride 0 ml 10/09/21 06:00 Normal Saline 10 Ml Vial IJ 11/07/21 23:59 DIRECTED PRN Sterile Water 0 ml 10/09/21 06:00 Water,Injection,Sterile 10 Ml Vial IJ 11/07/21 23:59 DIRECTED PRN PFSH Active Problems Active Problems: Problem Status Onset Code Closed left clavicular fracture S42.002A Pain from implanted hardware T85.848A Medical History Active Problem List (Updated 10/09/21 @ 13:17 by VALDEMAR Ibarra) Closed left clavicular fracture (Acute) Pain from implanted hardware (Acute) Medical History Central precocious puberty type 1 Pt is unsure if it is type 1 or 2 No significant past medical history Surgical History Surgical History (Updated 10/09/21 @ 13:17 by VALDEMAR Ibarra) Hx of colonoscopy Hx of esophagogastroduodenoscopy Hx of wisdom tooth extraction Tobacco Smoking/Tobacco Use Status: Never Alcohol Alcohol Intake: current Alcohol intake frequency: a few times a week Alcohol type: beer, wine and hard liquor Substance Use Substance use: Never Substance use type: does not use Details: alcohol: t-5, one beer Vital Signs and Lab Results Vital Signs Most Recent Vital Signs in EMR: Most Recent Vital Signs Temp Pulse Resp BP Pulse Ox 36.4 C L 55 L 16 110/82 98 10/09/21 12:40 10/09/21 12:40 10/09/21 12:40 10/09/21 12:40 10/09/21 12:40 Lab Results Blood Type / Crossmatch: No Data to Display Complete Blood Count: No Data to Display Complete Metabolic Panel: No Data to Display Liver Function Panel: No Data to Display Coagulation Panel: No Data to Display Cardiac Panel: No Data to Display Arterial Blood Gas: No Data to Display Venous Blood Gas: No Data to Display Pancreas Panel: No Data to Display Thyroid Panel: No Data to Display Infectious Disease: Coronavirus (COVID-19)(PCR) Negative (Negative) 10/08/21 08:55 10/08/21 Coronavirus 2019 Source Nasal/Nares 10/08/21 08:55 10/08/21 Blood Cultures: No Data to Display Toxicology Panel: No Data to Display Panel: No Data to Display Anesthesia Assessment and Plan Anesthesia History Personal History: No History of Anesthesia Complications Family History: No Family History of Anesthesia Complications Exercise Tolerance Exercise Tolerance: Metabolic Equivalents>4 Pertinent Negatives Pertinent Negatives: No Symptoms of GERD, No Major Cardiovascular Symptoms or Complaints and No Major Pulmonary Symptoms or Complaints Cardiac & Pulmonary Exam Cardiac Exam: Normal S1/S2 Heart Sounds Pulmonary Exam: Clear Bilateral Breath Sounds Implantable Cardiac Device Does patient have a Pacemaker or an ICD?: No Airway Exam Known Difficult Airway: No Mallampati Class: 1 Mouth Opening: Normal (> 3cm) Thyromental Distance: Greater than 3 cm Neck Range of Motion: Full ROM Neck Circumference: Normal Teeth Condition: Normal Dentition Airway Comments: High angle narrow palate ASA Classification ASA Score: ASA 2 Emergency Case?: No NPO Status NPO Status: NPO Clears >2 hours, Solids >8 hours Status Status: Negative HCG Anesthesia Plan Resuscitation Status: Full Code Anesthesia Technique: General Anesthesia Airway Planned: LMA Monitors Used: Standard Monitors
--- NOTE | 2021-10-09 13:27 | W.PREOPHP ---
Date of service: 10/09/21 Time of Service: 13:27 Assessment and Plan Assessment and plan (1) Closed left clavicular fracture: Status: Acute Qualifiers: Encounter type: subsequent encounter Clavicle location: shaft Fracture alignment: displaced Fracture healing: with routine healing Qualified Code(s): S42.022D - Displaced fracture of shaft of left clavicle, subsequent encounter for fracture with routine healing (2) Pain from implanted hardware: Status: Acute Assessment and plan: Vaughn Aguilar is a 36-year-old who is status post ORIF of the left clavicle. She has done well from this but continues to have some discomfort from the retained hardware. Therefore, I offered hardware removal. I discussed the risk of the procedure to include bleeding, infection, pain, stiffness, damage to nerves and vessels, refracture. Despite these risks, she elects to proceed. History of Present Illness History of Present Illness Chief Complaint: Left Clavicle Retained Hardware Narrative: Vaughn Aguilar is a 36-year-old who is status post ORIF of a left clavicle fracture. She has done well from the fracture surgery but has prominence of the hardware and would like it removed. This has been discussed previously in the office. She continues to have minor discomfort with direct pressure over the plate. She also continues to have some numbness just distal to the incision over the anterior chest wall. No acute medical issues recently. No COVID-19 exposures. Review of Systems All systems reviewed & are unremarkable except as noted in HPI and below PFSH Active Problem List (Updated 10/09/21 @ 13:17 by VALDEMAR Ibarra) Closed left clavicular fracture (Acute) Pain from implanted hardware (Acute) Medical History Central precocious puberty type 1 Pt is unsure if it is type 1 or 2 No significant past medical history Surgical History Hx of colonoscopy Hx of esophagogastroduodenoscopy Hx of wisdom tooth extraction Social History Smoking/Tobacco Use Status: Never Smoking risk assessment performed?: Yes Alcohol Intake: current Alcohol Intake frequency: a few times a week Alcohol type: beer, wine and hard liquor Drug use: Never Substance use type: does not use Details: alcohol: t-5, one beer Current gender identity: female Do you feel safe at home: Yes Do you feel safe in your relationship?: Yes Meds Allergies and Home Medications Allergies Allergy/AdvReac Type Severity Reaction Status Date / Time No Known Allergies Allergy Unverified 10/09/21 12:34 Home Medications Medication Instructions Recorded Confirmed Type sumatriptan succinate 25 mg PO DIRECTED 10/08/21 10/09/21 History hydrocodone-acetaminophen 1 tab PO Q6H PRN #6 tab 10/09/21 Rx ibuprofen 600 mg PO TID PRN #90 tab 10/09/21 Rx Exam Resp Effort & Inspection: normal respiratory effort Auscultation: clear to auscultation bilaterally Cardio Rate: bradycardic Rhythm: regular rhythm Results Last Vital Signs Temp 36.4 C L 10/09/21 12:40 Pulse 55 L 10/09/21 12:40 Resp 16 10/09/21 12:40 BP 110/82 10/09/21 12:40 Pulse Ox 98 10/09/21 12:40
[2021-10-09] MEDS: ceFAZolin 2 GM/50 ML BAG IVPB (13:29)
[2021-10-09] MEDS: Bupivacaine LIPOSOME/PF 133 MG/10 ML VIAL IJ (14:02)
[2021-10-09] MEDS: Bupivacaine 0.25% Pres-Free 30 ML VIAL (14:02)
--- NOTE | 2021-10-09 15:08 | W.ANESPOSTOP ---
Postoperative Evaluation Date, Time and Location Date Performed: 10/09/21 Time Performed: 14:55 Patient Location: PACU Vital Signs Most Recent Imported Vital Signs: Most Recent Vital Signs Temp Pulse Resp BP Pulse Ox 36.3 C L 58 L 11 L 115/77 100 10/09/21 14:57 10/09/21 14:57 10/09/21 14:57 10/09/21 14:57 10/09/21 14:57 Pain Score Most Recent Pain Score: Most Recent Pain Score Pain Level 0 10/09/21 14:57 Assessment Mental Status: Arousable with meaningful communication Airway and Respiratory Function: Patent airway with normal (patient baseline) respiratory exam Cardiovascular Function: Hemodynamically Stable Hydration Status: Adequately Hydrated Nausea & Vomiting: No Nausea or Vomiting Pain: Pt. Denies Any Pain Peripheral Nerve Block: Patient did not receive a nerve block
--- NOTE | 2021-10-09 21:55 | W.PM.OP ---
Date of service: 10/09/21 Time of Service: 14:32 Operative Note Operative Note DATE OF PROCEDURE: 10/10/21 PRE-OP DIAGNOSIS: Retained Painful Hardware - Left Clavicle POST-OP DIAGNOSIS: same PROCEDURE: Removal of Hardware - Left Clavicle SURGEON: Denny Cortez ANESTHESIA TYPE: General LMA/ETT Refer to Anesthesia Record ESTIMATED BLOOD LOSS: 5 PATHOLOGY: none sent COMPLICATIONS: None Patient was transported to: PACU Patient's condition: stable Indications: Vaughn Aguilar is a 36 year old female who suffered a clavicle fracture which was fixed. This has healed and she has done well. However, she has had irritation from the plate and screws. Therefore, I offered removal of the plate and screws. I discussed the risk which included bleeding, infection, pain, stiffness, damage to nerves and vessels, need for repeat procedures, refracture. Despite these risk, the patient agreed to proceed. Findings: The plate and 8 screws were removed without difficulty. Procedure Description: Vaughn Aguilar was greeted in the preoperative holding area. Identity was confirmed the correct side was identified and marked. The consent was reviewed the patient and signed. She was then taken to the operating room and placed in the supine position. A general anesthetic was given. Prophylactic antibiotics in the form of cefazolin were administered. The head of bed is elevated slightly and a bump was placed behind the left shoulder. The left shoulder region was then prepped with ChloraPrep and draped in a standard fashion. A timeout was performed for safe surgery. The proposed surgical site was then injected with 0.25% bupivacaine. The previous incision was then incised. The platysma was also incised sharply and dissection was carried down on top of the plate. Dissection through the fascia was taken directly onto the plate and extended medially and laterally to expose the plate fully. Using electrocautery and sharp dissection I removed any scar tissue from on top of the plate to expose the screws fully. Screws medially were first removed without difficulty. The five smaller screws laterally were then removed once again without the. The plate was pried off of the clavicle and removed from the wound. I then used a rongeur to smooth down any of the irregularities of the scar tissue and the periosteum of the clavicle. There is no sign of infection. There are no signs of nonunion or fracture malalignment. The wound was then irrigated. There is no significant bleeding. The deep fascia was then closed with 2-0 Vicryl. The platysma and deep layer was closed with a running 3-0 Vicryl suture. The skin was closed with a running 4-0 Monocryl. This was then reinforced with skin glue. A Mepilex silver dressing was applied. She was then placed into a simple sling. At the end the case all counts are correct. She was transferred back to the PACU in a stable condition.
== END 2021-10-09 16:24 | disposition home or self-care (01) ==
PROVIDERS: PCP Nurse Practitioner Family; Visit Provider Student in an Organized Health Care Education/Training Program
PROC: (CPT 20680; principal; 2021-10-09 15:00)
DX: T85.848A Pain due to other internal prosthetic devices, implants and grafts, initial encounter (principal)
CPT/HCPCS: 20680; J0690; J1100; J1885; J2250; J2405

== ENCOUNTER 2022-02-13 12:02 | Outpatient (REF) | payer MEDICAID, SELFPAY ==
--- NOTE | 2022-02-13 10:30 | PAPFT_PTH ---
PATIENT: Bonny Kurtz LOC: [facility]#:[id number] AGE/SX: 36/F ROOM: RE02/13/[address]: Jessica Dickerson : 1985 BED: DIS: 02/13/2022 SPEC #: [id number] RECD: 02/13/22 18:10 STATUS: YADY REQ #: [id number] KENZIE: 02/13/22 10:[address]: Jessica Dickerson DEPT: [facility] Cytology RECD BY: Belgica Staley ENTERED: 02/13/22 18:10 SP TYPE: PAPFT OTHR DR: Dana Barrett Tissues: 1 - CX/ENDOCX FOR PAP SMEARS Procedures: PAP THIN PREP/[facility] Screening HPV DNA PROBE Comments: [id number] (CHLAMYDIA/GC)
[2022-02-14 15:24] LABS: Chlamydia Result Negative (Negative); GC Result Negative (Negative)
== END 2022-02-13 12:03 | disposition home or self-care (01) ==
LOC: NCHCN 12:02
PROVIDERS: PCP Nurse Practitioner Family; Visit Provider Registered Nurse
DX: Z11.3 Encounter for screening for infections with a predominantly sexual mode of transmission (principal); Z12.4 Encounter for screening for malignant neoplasm of cervix; Z11.51 Encounter for screening for human papillomavirus (HPV)
CPT/HCPCS: 87491; 87591; 88142; 87624

== ENCOUNTER 2024-06-15 17:40 | Outpatient (REF) | payer MEDICAID, SELFPAY ==
--- OUTSIDE RECORDS SUMMARY | 2024-06-15 17:43 | XMS_ITS ---
Author Organization Unknown Address [address] [place] [address] [phone] Phone Care Team Providers Care Mobile Application Development Lead Name Role Phone SUDHAKAR Gil Attending Unavail able TEMO WILLETT Primary Unavailable Immunization Immunization Date Status Additional Notes Code Code System influenza, injectable, quadrivalent, preservative free 09/26/2023 Completed 150 CVX Results US OB LESS THAN 14 WKS W TRA NSVAGINAL* - Completed: 03/27/2023 09:57 [facility] [place], [place] [address] PACS CERTIFIED LOW VISION THERAPIST REPORT Patient Name: TICO DYE MRN: Sex: : Age: [id number] F 1985 37 Account: Accession: Admit: StayType: [id number] 03/27/2023 O/P Ordered: Order ID: Submitted: Ordering Provider: 03/27/2023 09:31 [id number] KT NEHEMIAH DE LA FUENTE Completed: Technologist: Resulted: 03/27/2023 09:57 [facility] 03/27/2023 10:49 Study Description: US OB LESS THAN 14 WKS W TRANSVAGINAL Study Reason: DATING VIABILITY TECHNIQUE: First trimester obstetrical ultrasound was performed. COMPARISON: No exams were available for comparison FINDINGS: There is an intrauterine gestational sac which contains a yolk sac and viable pole which exhibits heart rate of 160 bpm. [place] [employer]-rump length measurement is 31 mm, corresponding to 10 weeks 0 days gestational age. There is no evidence of subchorionic hemorrhage. Maternal ovaries: Right: Corpus luteum cyst. Left: Unremarkable. There is no fluid in the cul-de-sac and adnexal regions. IMPRESSION: Single viable intrauterine gestation which is approximately 10 weeks 0 days gestational age by crown rump length measurement, implying JILLIAN of 23 October 20232020. Report Digitally Signed by Meliza Cruz on 03/27/2023 10:49 AM EDT Social History Type Status Start Date End Date Code Code Syst em Smoking History Never smoker (Never Smoked) 645314680 SNOMED CT Sex Female Hospital Discharge Instructions Should you have any questions prior to discharge, please contact a member of your healthcare team. If you have left the hospital and have any questions, please contact your primary care physician. Reason For Referral No Data Found Allergies and Adverse Reactions Allergy Substance Reaction Severity Start Date Concern Status Co de Code System No Known Drug Allergies Active 050457040 SNOMED-CT Plan of Treatment US OB COMPLETE 10/01/2023 US OB LIMITED 06/26/2023 US OB COMPLETE 05/29/2023 US OB / TV 03/27/2023 Encounters Encounter Diagnosis Start Date Code Code Sys tem screening 03/27/2023 [id number] SNOMED-C T Personal Care Team Section Performer Name Performer Role Active Date Inactive Da te
--- OUTSIDE RECORDS SUMMARY | 2024-06-15 17:43 | XMS_ITS ---
Author Organization Unknown Address [address] [place] [address] [phone] Phone Care Team Providers Care Hiv Prevention Specialist Name Role Phone SUDHAKAR Gil Attending Unavail able TEMO WILLETT Primary Unavailable Immunization Immunization Date Status Additional Notes Code Code System influenza, injectable, quadrivalent, preservative free 09/26/2023 Completed 150 CVX Results US OB LIMITED - Completed: 0 06/26/2023 10:00 [facility]: [place], [place] [address] PACS VOIP ENGINEER REPORT Patient Name: TICO DEY MRN: Sex: : Age: [id number] F 1985 38 Account: Accession: Admit: StayType: [id number] 06/26/2023 O/P Ordered: Order ID: Submitted: Ordering Provider: 06/26/2023 09:37 [id number] NEHEMIAH DIAMOND Completed: Technologist: Resulted: 06/26/2023 10:00 [facility] 06/26/2023 10:36 Study Description: US OB LIMITED Study Reason: F/U FROM FAS TECHNIQUE: Transabdominal obstetrical ultrasound was performed. COMPARISON: 29 May 2023 FINDINGS: There is a single intrauterine gestation in cephalic position. cardiac activity identified-144 bpm. Amniotic fluid: There is a normal amount of amniotic fluid. EMMANUEL 18.0 Placental location: The placenta is posterior grade 0,with no evidence of placenta previa. ANATOMY: profile: Normal. nose and lips: Normal. Four-chamber heart: Normal. LVOT: Normal. RVOT: Normal. IMPRESSION: There are no anomalies evident on today's study. The placenta is posterior with no evidence of placenta previa. There is a normal amount of amniotic fluid. Report Digitally Signed by Meliza Cruz on 06/26/2023 10:36 AM EDT Social History Type Status Start Date End Date Code Code Syst em Smoking History Never smoker (Never Smoked) [id number] SNOMED CT Sex Female Hospital Discharge Instructions [...] Code System No Known Drug Allergies Active 416096208 SNOMED-CT Plan of Treatment US OB COMPLETE 10/01/2023 US OB LIMITED 06/26/2023 US OB COMPLETE 05/29/2023 US OB / TV 03/27/2023 Encounters Encounter Diagnosis Start Date Code Code Sys tem screening 06/26/2023 [id number] SNOMED-C T Personal Care Team Section Performer Name Performer Role Active Date Inactive Da te
--- OUTSIDE RECORDS SUMMARY | 2024-06-15 17:43 | XMS_ITS ---
Author Organization Unknown Address [address] [place] [address] [phone] Phone Care Team Providers Care Juvenile Officer Name Role Phone TEMO WILLETT Attending Unavailable Immunization Immunization Date Status Additional Notes Code Code System influenza, injectable, quadrivalent, preservative free 09/26/2023 Completed 150 CVX Results US OB GREATER THAN 14 WEEKS - Completed: 05/29/2023 14:18 [facility]: [place], [place] [address] PACS GENERATION ENGINEERING TECHNOLOGIST REPORT Patient Name: TICO DYE MRN: Sex: : Age: [id number] F 1985 38 Account: Accession: Admit: StayType: [id number] 05/29/2023 O/P Ordered: Order ID: Submitted: Ordering Provider: 05/29/2023 13:01 [id number] NEHEMIAH CERDA Completed: Technologist: Resulted: 05/29/2023 14:18 BM 05/29/2023 14:29 Study Description: US OB GREATER THAN 14 WEEKS Study Reason: FAS COMPARISON: 03/27/2023 FINDINGS: Transabdominal obstetrical ultrasound performed. FINDINGS: Number of fetuses: One. position: Cephalic heart rate: 150 bpm. Placental location: Posterior, grade 0 No evidence of previa. Amniotic fluid index: 12.0 cm. Amount of fluid is within normal limits. ANATOMICAL SURVEY: Visualized structures within normal limits. Nose/lips, profile and left ventricular outflow tract not visualized. BIOMETRIC DATA: BPD: 46.5 mm, 20 weeks 0 days HC: 160.6 mm, 18 weeks 6 days AC: 139.1 mm, 19 weeks 2 days FL: 30.4 mm, 19 weeks 3 days HUM: 28.2 mm, 19 weeks 1 day EFW: 287 g ?43 EGA: 19 weeks 2 days JILLIAN: 10/21/2023 IMPRESSION: 1. Single live intrauterine gestation as above. 2. Visualized anatomy within normal limits. Nose/lips, profile and left ventricular outflow tract not visualized. Report Digitally Signed by Rashaun Lopez on 05/29/2023 02:29 PM EDT 05/29/23.1431.[facility].to TEMO via fax Social History Type Status Start Date End Date Code Code Syst em Smoking History Never smoker (Never Smoked) [id number] SNOMED CT Sex Female Hospital Discharge Instructions [...] Code System No Known Drug Allergies Active 601595071 SNOMED-CT Plan of Treatment US OB COMPLETE 10/01/2023 US OB LIMITED 06/26/2023 US OB COMPLETE 05/29/2023 US OB / TV 03/27/2023 Encounters Encounter Diagnosis Start Date Code Code Sys tem Encounter for other specified screening 05/17 SNOMED-CT Personal Care Team Section Performer Name Performer Role Active Date Inactive Da te
--- OUTSIDE RECORDS SUMMARY | 2024-06-15 17:44 | XMS_ITS ---
Author Organization Unknown Address [address] [place] [address] [phone] Phone Care Team Providers Care Rcp Name Role Phone February Attending Unavailable TEMO BRENNON Primary Unavailable Immunization Immunization Date Status Additional Notes Code Code System influenza, injectable, quadrivalent, preservative free 09/26/2023 Completed 150 CVX Results PROTEIN/CREATININE RATIO RAN DOM URINE* - Collect Date/Time: 09/26/2023 10:30 [facility] ID: [id number] [address] [place] [address], [phone] LOINC: 05906-9 Test Value Unit Reference Range Code Code System Flag CREAT. CONC. URINE 23.8 mg/dL PROTEIN CONC. URINE < 6.0 mg/dL PROTEIN/CREATININE DNR L=0.00 H=0.29 GROUP B STREP DNA BY PCR - C ollect Date/Time: 09/26/2023 10:30 [facility] ID: [id number] [address] [place] [address], [phone] LOINC: 52893-3 Test Value Unit Reference Range Code Code System Flag GROUP B STREP POSITIVE Normal: Negative A OTHER SOURCE: VAG/RECTA PCN ALLERGY? NO Copy Sent to OB? YES Social History Type Status Start Date End Date Code Code Syst em Smoking History Never smoker (Never Smoked) 584394984 SNOMED CT Sex Female Hospital Discharge Instructions [...] Code System No Known Drug Allergies Active 979607376 SNOMED-CT Plan of Treatment US OB COMPLETE 10/01/2023 US OB LIMITED 06/26/2023 US OB COMPLETE 05/29/2023 US OB / TV 03/27/2023 Encounters Encounter Diagnosis Start Date Code Code Sys tem -induced hypertension 09/26/2023 71747475 SNOMED-CT Personal Care Team Section Performer Name Performer Role Active Date Inactive Da te
--- OUTSIDE RECORDS SUMMARY | 2024-06-15 17:44 | XMS_ITS ---
Author Organization Unknown Address [address] [place] [address] [phone] Phone Care Team Providers Care Can Striper Name Role Phone DARCI LOPEZ Attending Unavailable TEMO WILLETT Primary Unavailable Immunization Immunization Date Status Additional Notes Code Code System influenza, injectable, quadrivalent, preservative free 09/26/2023 Completed 150 CVX Social History Type Status Start Date End Date Code Code Syst em Smoking History Never smoker (Never Smoked) 331404508 SNOMED CT Sex Female Hospital Discharge Instructions [...] Code System No Known Drug Allergies Active 873191439 SNOMED-CT Plan of Treatment US OB COMPLETE 10/01/2023 US OB LIMITED 06/26/2023 US OB COMPLETE 05/29/2023 US OB / TV 03/27/2023 Encounters Encounter Diagnosis Start Date Code Code Sys tem Gestational [-induc ed] hypertension without significant proteinuria, third trimester 09/28/2023 SNOMED-CT Personal Care Team Section Performer Name Performer Role Active Date Inactive Da te Progress Notes [facility] 09/28/2023 12:39 CNM OBSTETRIC TRIAGE NOTE Patient Name: LEYDA DYEANMARCHARITY Cornelius, : 1985, Age: 38 years at 36w3d with gest hypertension here for c/o MARROQUIN and high BP at home this morning. Here by herself 09/28/2023 10:50 S/HPI: awoke with MARROQUIN this morning, felt it a few times when woke during the night. took 500 mg acetaminophen at home, not resolved in an hour so took BP at home and reading was 157/103, so called and told to come in. MARROQUIN better now, 1-2 out of 10, then fully resolved after giving her another 625 mg acetaminophen. MARROQUIN was in her forehead and behind her eyes, a bit more on her R side than L. Feels like her sinuses may be contributing, has a stuffy nose. 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 had a similar MARROQUIN a few weeks ago, also resolved with a dose of acetaminophen. otherwise feeling well. No vision changes, no RUQ pain or tenderness. Vaginal discharge or bleeding: no movement: normal Contractions: no O: Vital signs: BP 136/87, 137/92, HR 71, T 36.5 General: appears well patellar DTRs 2+, no clonus FHR tracing: Baseline: 135 variability: moderate accelerations: present decelerations: absent Contractions: Q none Labs: negative serum and P/C testing 2 days ago A: gestational hypertension, no preeclampsia at 36 weeks. Reactive NST P: Discharged home w/ F/U in clinic in 3 days. discussed dx criteria for preeclampsia vs. gest HTN and that generally if MARROQUIN not particularly persistent, frequent, or severe, responds to acetaminophen, is not considered a preeclampsia MARROQUIN. discussed the various presentations of preeclampsia and that it tends to over time progress and worsen from gest HTN to preeclampsia to preecl w/ severe features and this is why ACOG recommends IOL at 37 weeks. she is not sure she wants 37 week IOL, prior to high BP, was expecting to have up to 42 weeks before IOL indicated. Paged OB Dr. Bailey to give MALGORZATAI report on assessment and plan, no call back yet. 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
--- OUTSIDE RECORDS SUMMARY | 2024-06-15 17:44 | XMS_ITS ---
Author Organization Unknown Address [address] [place] [address] [phone] Phone Care Team Providers Care Chain Tender Name Role Phone SUDHAKAR Gil Attending Unavail able TEMO WILLETT Primary Unavailable Immunization Immunization Date Status Additional Notes Code Code System influenza, injectable, quadrivalent, preservative free 09/26/2023 Completed 150 CVX Results CBC W/ DIFFERENTIAL* - Colle ct Date/Time: 09/25/2023 10:50 ID: [id number] [address] [place] [address], [address] LOINC: 67767-4 Test Value Unit Reference Range Code Code System Flag WBC 6.91 th/cmm L=5.00 H=10.00 6690-2 LOINC NEUT % 75.1 % L=40.0 H=80.0 LYMPH % 16.5 % L=10.0 H=50.0 MONO % 7.7 % L=2.0 H=12.0 11495-4 LOINC EOS % 0.3 % L=0.0 H=8.0 BASO % 0.0 % L=0.0 H=3.0 IG % 0.4 % L=0.0 H=1.1 2514-8 LOINC NRBC % 0.0 % L=0.0 H=0.0 88928-7 LOINC NEUT abs count 5.2 th/cmm L=1.6 H=8.4 751-8 LOINC LYMPH abs count 1.1 th/cmm L=1.5 H=4.0 731-0 LOINC L MONO abs count 0.5 th/cmm L=0.2 H=1.0 742-7 LOINC EOS abs count 0.0 th/cmm L=0.0 H=0.5 711-2 LOINC BASO abs count 0.0 th/cmm L=0.0 H=0.2 704-7 LOINC IG abs count 0.0 th/cmm L=0.0 H=0.1 53431-3 LOINC NRBC abs count 0.0 mil/cmm L=0.0 H=0.0 86304-6 LOINC RBC 4.08 mil/cmm L=3.90 H=5.40 789-8 LOINC HEMOGLOBIN 12.2 gm/dL L=12.0 H=16.0 718-7 LOINC HEMATOCRIT 35 % L=37 H=47 4544-3 LOINC L MCV 85 fL L=82 H=92 787-2 LOINC MCH 29.9 pg L=27.0 H=31.0 785-6 LOINC MCHC 35.1 % L=32.0 H=36.0 786-4 LOINC RDW-SD 38.5 fL L=39.0 H=49.0 788-0 LOINC L PLATELET COUNT 231 th/cmm L=150 H=450 777-3 LOINC URIC ACID SERUM - Collect Da te/Time: 09/25/2023 10:50 ID: [id number] [address] [place] [address], [address] LOINC: 3084-1 Test Value Unit Reference Range Code Code System Flag URIC ACID SERUM 3.9 mg/dL L=2.0 H=7.0 COMPREHENSIVE METABOLIC PANE L (CMP) - Collect Date/Time: 09/25/2023 10:50 ID: [id number] [address] [place] [address], [address] LOINC: 68452-6 Test Value Unit Reference Range Code Code System Flag GLUCOSE 98 mg/dL L=70 H=116 2345-7 LOINC BUN 8 mg/dL L=6 H=25 3094-0 LOINC CREATININE 0.51 mg/dL L=0.51 H=0.95 2160-0 LOINC SODIUM SERUM 132 mmol/L L=136 H=145 2951-2 LOINC L POTASSIUM SERUM 4.3 mmol/L L=3.4 H=5.2 2823-3 LOINC CHLORIDE SERUM 100 mmol/L L=96 H=110 2075-0 LOINC CARBON DIOXIDE (CO2) 22 mmol/L L=22 H=34 2028-9 LOINC ANION GAP 10.0 mmol/L 85605-8 LOINC CALCIUM SERUM 8.8 mg/dL L=8.2 H=10.2 64023-8 LOINC BILIRUBIN TOTAL 0.2 mg/dL L=0.0 H=1.3 1975-2 LOINC ALK. PHOS. 162 U/L L=46 H=116 6768-6 LOINC H SGOT (AST) 18 U/L L=15 H=37 1920-8 LOINC SGPT (ALT) 19 U/L L=12 H=78 1742-6 LOINC TOTAL PROTEIN 6.0 gm/dL L=6.0 H=8.0 2885-2 LOINC ALBUMIN 2.5 gm/dL L=3.4 H=5.0 1751-7 LOINC L AGE 38 years eGFR (non-Afr.Amer.) > 120 mL/min 57881-1 LOINC eGFR (Afr-Lithuanian) > 120 mL/min 46178-3 LOINC Social History Type Status Start Date End Date Code Code Syst em Smoking History Never smoker (Never Smoked) 785947034 SNOMED CT Sex Female Hospital Discharge Instructions [...] Code System No Known Drug Allergies Active 842000744 SNOMED-CT Plan of Treatment US OB COMPLETE 10/01/2023 US OB LIMITED 06/26/2023 US OB COMPLETE 05/29/2023 US OB / TV 03/27/2023 Encounters Encounter Diagnosis Start Date Code Code Sys tem Gestational [-induc ed] hypertension without significant proteinuria, unspecified trimester 09/25/2023 SNOMED-CT Personal Care Team Section Performer Name Performer Role Active Date Inactive Da te
--- OUTSIDE RECORDS SUMMARY | 2024-06-15 17:45 | XMS_ITS ---
Author Organization Unknown Address [address] [place] [address] [phone] Phone Care Team Providers Care Guide Rail Cleaner Name Role Phone BECKYARELIS AYLA Leija Attending Unavailable TEMO WILLETT Primary Unavailable Immunization Immunization Date Status Additional Notes Code Code System influenza, injectable, quadrivalent, preservative free 09/26/2023 Completed 150 CVX Results PROTEIN/CREATININE RATIO RAN DOM URINE* - Collect Date/Time: 10/04/2023 09:45 [facility] ID: [id number] [address] [place] [address], [phone] LOINC: 71203-0 Test Value Unit Reference Range Code Code System Flag CREAT. CONC. URINE 126.9 mg/dL PROTEIN CONC. URINE 39.8 mg/dL PROTEIN/CREATININE 0.31 Ratio L=0.00 H=0.29 H COMPREHENSIVE METABOLIC PANE L (CMP) - Collect Date/Time: 10/04/2023 09:25 [facility] ID: [id number] [address] [place] [address], 5661 LOINC: 09190-4 Test Value Unit Reference Range Code Code System Flag GLUCOSE 95 mg/dL L=70 H=116 2345-7 LOINC BUN 10 mg/dL L=6 H=25 3094-0 LOINC CREATININE 0.56 mg/dL L=0.51 H=0.95 2160-0 LOINC SODIUM SERUM 137 mmol/L L=136 H=145 2951-2 LOINC POTASSIUM SERUM 4.0 mmol/L L=3.4 H=5.2 2823-3 LOINC CHLORIDE SERUM 104 mmol/L L=96 H=110 2075-0 LOINC CARBON DIOXIDE (CO2) 21 mmol/L L=22 H=34 2028-9 LOINC L ANION GAP 11.9 mmol/L 17156-1 LOINC CALCIUM SERUM 8.7 mg/dL L=8.2 H=10.2 52092-3 LOINC BILIRUBIN TOTAL 0.5 mg/dL L=0.0 H=1.3 1975-2 LOINC ALK. PHOS. 184 U/L L=46 H=116 6768-6 LOINC H SGOT (AST) 32 U/L L=15 H=37 1920-8 LOINC SGPT (ALT) 35 U/L L=12 H=78 1742-6 LOINC TOTAL PROTEIN 6.0 gm/dL L=6.0 H=8.0 2885-2 LOINC ALBUMIN 2.5 gm/dL L=3.4 H=5.0 1751-7 LOINC L AGE 38 years eGFR (non-Afr.Amer.) > 120 mL/min 41340-0 LOINC eGFR (Afr-Chadian) > 120 mL/min 12382-1 LOINC URIC ACID SERUM - Collect Da te/Time: 10/04/2023 09:25 [facility] ID: [id number] [address] [place] [address], 61 LOINC: 3084-1 Test Value Unit Reference Range Code Code System Flag URIC ACID SERUM 4.4 mg/dL L=2.0 H=7.0 CBC W/ DIFFERENTIAL* - Colle ct Date/Time: 10/04/2023 09:25 [facility] ID: [id number] [address] [place] [address], 5661 LOINC: 38365-7 Test Value Unit Reference Range Code Code System Flag WBC 5.97 th/cmm L=5.00 H=10.00 6690-2 LOINC NEUT % 70.0 % L=40.0 H=80.0 LYMPH % 21.8 % L=10.0 H=50.0 MONO % 7.4 % L=2.0 H=12.0 21181-4 LOINC EOS % 0.3 % L=0.0 H=8.0 BASO % 0.2 % L=0.0 H=3.0 IG % 0.3 % L=0.0 H=1.1 2514-8 LOINC NRBC % 0.0 % L=0.0 H=0.0 14977-6 LOINC NEUT abs count 4.2 th/cmm L=1.6 H=8.4 751-8 LOINC LYMPH abs count 1.3 th/cmm L=1.5 H=4.0 731-0 LOINC L MONO abs count 0.4 th/cmm L=0.2 H=1.0 742-7 LOINC EOS abs count 0.0 th/cmm L=0.0 H=0.5 711-2 LOINC BASO abs count 0.0 th/cmm L=0.0 H=0.2 704-7 LOINC IG abs count 0.0 th/cmm L=0.0 H=0.1 69484-2 LOINC NRBC abs count 0.0 mil/cmm L=0.0 H=0.0 01778-9 LOINC RBC 4.05 mil/cmm L=3.90 H=5.40 789-8 LOINC HEMOGLOBIN 12.2 gm/dL L=12.0 H=16.0 718-7 LOINC HEMATOCRIT 34 % L=37 H=47 4544-3 LOINC L MCV 84 fL L=82 H=92 787-2 LOINC MCH 30.1 pg L=27.0 H=31.0 785-6 LOINC MCHC 35.7 % L=32.0 H=36.0 786-4 LOINC RDW-SD 38.1 fL L=39.0 H=49.0 788-0 LOINC L PLATELET COUNT 214 th/cmm L=150 H=450 777-3 LOINC Social History Type Status Start Date End Date Code Code Syst em Smoking History Never smoker (Never Smoked) 688140609 SNOMED CT Sex Female Hospital Discharge Instructions [...] Code System No Known Drug Allergies Active 135374796 SNOMED-CT Plan of Treatment US OB COMPLETE 10/01/2023 US OB LIMITED 06/26/2023 US OB COMPLETE 05/29/2023 US OB / TV 03/27/2023 Encounters Encounter Diagnosis Start Date Code Code Sys tem Unspecified pre-eclampsia, third trimester 10/04/2023 SNOMED-CT Personal Care Team Section Performer Name Performer Role Active Date Inactive Da te Progress Notes [facility] 10/05/2023 09:22 CNM Non-Stress Test (NST) Review NOTE Patient Name: TICO DYE, : 1985, Age: 38 years 10/04/2023 09:00 at 37w2d here for NST due to GHTN. Denies s/s Pre-E but has noted some increased swelling in her hands and feet/ankles. First time this CNM has met this patient but appears to have swelling in her face as well. Vital signs: BP 155/95, 159/96 HR 66 T 36.8 RR 18 NST: Baseline: 135 variability: moderate accelerations: present decelerations: absent Contractions: mild, irreg, rare SVE: Ft ext os, long, mod soft, posterior/mid, ballotable vertex LE: 1+ edema to calves Lab Results: This Visit Test Results Units Reference Range Ordered Collected Status CREAT. CONC. URINE 126.9 mg/dL 10/04/2023 09:00 10/04/2023 09:45 final PROTEIN CONC. URINE 39.8 mg/dL 10/04/2023 09:00 10/04/2023 09:45 final PROTEIN/CREATININE 0.31 H Ratio L=0.00 H=0.29 10/04/2023 09:00 10/04/2023 09:45 final WBC 5.97 th/cmm L=5.00 H=10.00 10/04/2023 09:00 10/04/2023 09:25 final NEUT % 70 % L=40.0 H=80.0 10/04/2023 09:00 10/04/2023 09:25 final LYMPH % 21.8 % L=10.0 H=50.0 10/04/2023 09:00 10/04/2023 09:25 final MONO % 7.4 % L=2.0 H=12.0 10/04/2023 09:00 10/04/2023 09:25 final EOS % 0.3 % L=0.0 H=8.0 10/04/2023 09:00 10/04/2023 09:25 final BASO % 0.2 % L=0.0 H=3.0 10/04/2023 09:00 10/04/2023 09:25 final IG % 0.3 % L=0.0 H=1.1 10/04/2023 09:00 10/04/2023 09:25 final NRBC % 0 % L=0.0 H=0.0 10/04/2023 09:00 10/04/2023 09:25 final NEUT abs count 4.2 th/cmm L=1.6 H=8.4 10/04/2023 09:00 10/04/2023 09:25 final LYMPH abs count 1.3 L th/cmm L=1.5 H=4.0 10/04/2023 09:00 10/04/2023 09:25 final MONO abs count 0.4 th/cmm L=0.2 H=1.0 10/04/2023 09:00 10/04/2023 09:25 final EOS abs count 0 th/cmm L=0.0 H=0.5 10/04/2023 09:00 10/04/2023 09:25 final BASO abs count 0 th/cmm L=0.0 H=0.2 10/04/2023 09:00 10/04/2023 09:25 final IG abs count 0 th/cmm L=0.0 H=0.1 10/04/2023 09:00 10/04/2023 09:25 final NRBC abs count 0 mil/cmm L=0.0 H=0.0 10/04/2023 09:00 10/04/2023 09:25 final RBC 4.05 mil/cmm L=3.90 H=5.40 10/04/2023 09:00 10/04/2023 09:25 final HEMOGLOBIN 12.2 gm/dL L=12.0 H=16.0 10/04/2023 09:00 10/04/2023 09:25 final HEMATOCRIT 34 L % L=37 H=47 10/04/2023 09:00 10/04/2023 09:25 final MCV 84 fL L=82 H=92 10/04/2023 09:00 10/04/2023 09:25 final MCH 30.1 pg L=27.0 H=31.0 10/04/2023 09:00 10/04/2023 09:25 final MCHC 35.7 % L=32.0 H=36.0 10/04/2023 09:00 10/04/2023 09:25 final RDW-SD 38.1 L fL L=39.0 H=49.0 10/04/2023 09:00 10/04/2023 09:25 final PLATELET COUNT 214 th/cmm L=150 H=450 10/04/2023 09:00 10/04/2023 09:25 final GLUCOSE 95 mg/dL L=70 H=116 10/04/2023 09:00 10/04/2023 09:25 final BUN 10 mg/dL L=6 H=25 10/04/2023 09:00 10/04/2023 09:25 final CREATININE 0.56 mg/dL L=0.51 H=0.95 10/04/2023 09:00 10/04/2023 09:25 final SODIUM SERUM 137 mmol/L L=136 H=145 10/04/2023 09:00 10/04/2023 09:25 final POTASSIUM SERUM 4 mmol/L L=3.4 H=5.2 10/04/2023 09:00 10/04/2023 09:25 final CHLORIDE SERUM 104 mmol/L L=96 H=110 10/04/2023 09:00 10/04/2023 09:25 final CARBON DIOXIDE (CO2) 21 L mmol/L L=22 H=34 10/04/2023 09:00 10/04/2023 09:25 final ANION GAP 11.9 mmol/L 10/04/2023 09:00 10/04/2023 09:25 final CALCIUM SERUM 8.7 mg/dL L=8.2 H=10.2 10/04/2023 09:00 10/04/2023 09:25 final BILIRUBIN TOTAL 0.5 mg/dL L=0.0 H=1.3 10/04/2023 09:00 10/04/2023 09:25 final ALK. PHOS. 184 H U/L L=46 H=116 10/04/2023 09:00 10/04/2023 09:25 final SGOT (AST) 32 U/L L=15 H=37 10/04/2023 09:00 10/04/2023 09:25 final SGPT (ALT) 35 U/L L=12 H=78 10/04/2023 09:00 10/04/2023 09:25 final TOTAL PROTEIN 6 gm/dL L=6.0 H=8.0 10/04/2023 09:00 10/04/2023 09:25 final ALBUMIN 2.5 L gm/dL L=3.4 H=5.0 10/04/2023 09:00 10/04/2023 09:25 final AGE 38 years 10/04/2023 09:00 10/04/2023 09:25 final eGFR (non-Afr.Amer.) >120 mL/min 10/04/2023 09:00 10/04/2023 09:25 final eGFR (Afr-Chadian) >120 mL/min 10/04/2023 09:00 10/04/2023 09:25 final URIC ACID SERUM 4.4 mg/dL L=2.0 H=7.0 10/04/2023 00:00 10/04/2023 09:25 final COMPREHENSIVE METABOLIC PANEL (CMP) 10/05/2023 09:00 cancelled ASSESSMENT: Reactive NST at 37w2d, BPs higher than they have been. Lab results diagnostic of Pre-Eclampsia without severe features. PLAN: Reviewed that diagnosis now of Pre-Eclampsia without severe features and recommendation for IOL at this time, not waiting until later this week as previously desired by pt, despite prev recommendation for IOL at 37w. Pt will D/C home to gather personal belongings for and return ~3-4pm for IOL. Likely cervidil, although all methods and plans of care reviewed. Aware of possible need for magnesium sulfate and plan for GBS prophylaxis.
--- OUTSIDE RECORDS SUMMARY | 2024-06-15 17:45 | XMS_ITS ---
Author Organization Unknown Address [address] [place] [address] [phone] Phone Care Team Providers Care Histotechnologist Supervisor Name Role Phone ARA Cornelius Attending Unavailable TEMO WILLETT Primary Unavailable Immunization Immunization Date Status Additional Notes Code Code System influenza, injectable, quadrivalent, preservative free 09/26/2023 Completed 150 CVX Results US OB GREATER THAN 14 WEEKS - Completed: 10/01/2023 16:29 LOINC: [place], [place] [address] PACS PLATE SETTER REPORT Patient Name: TICO DYE MRN: Sex: : Age: [id number] F 1985 38 Account: Accession: Admit: StayType: [id number] 10/01/2023 O/P Ordered: Order ID: Submitted: Ordering Provider: 10/01/2023 15:55 [id number] GENARO ADHIKARI Completed: Technologist: Resulted: 10/01/2023 16:29 BM 10/01/2023 16:52 Study Description: US OB GREATER THAN 14 WEEKS Study Reason: GROWTH TECHNIQUE: Study Description: US OB GREATER THAN 14 WEEKS Study Reason: GROWTH COMPARISON: July 09, 2013 June 08 FINDINGS: Number of fetuses: One. position: Vertex. Placental location: Posterior. No evidence of previa. BIOMETRIC DATA: BPD: 91mm = 36+5 weeks, 61% HC: 323 mm = 36+4 weeks, 18% AC: 316 mm = 35+4 weeks, 25% FL: 72 mm = 36+4 weeks, 42% HUM: 62 mm = 35+5 weeks EFW: 2834 Gm = 40% Composite Age: 36 weeks 2-day JILLIAN: 27 October 2023 Heart Rate: 135BPM Amniotic fluid index: 17 cm. Amount of fluid is visually within normal limits. IMPRESSION: size and weight are within the expected range. Report Digitally Signed by Meliza Cruz on 10/01/2023 04:52 PM EST Social History Type Status Start Date End Date Code Code Syst em Smoking History Never smoker (Never Smoked) [id number] SNOMED CT Sex Female Hospital Discharge Instructions [...] Code System No Known Drug Allergies Active 219187107 SNOMED-CT Plan of Treatment US OB COMPLETE 10/01/2023 US OB LIMITED 06/26/2023 US OB COMPLETE 05/29/2023 US OB / TV 03/27/2023 Encounters Encounter Diagnosis Start Date Code Code Sys tem Gestational [-induc ed] hypertension without significant proteinuria, third trimester 10/01/2023 SNOMED-CT Personal Care Team Section Performer Name Performer Role Active Date Inactive Da te
--- OUTSIDE RECORDS SUMMARY | 2024-06-15 17:45 | XMS_ITS ---
Author Organization Unknown Address [address] [place] [address] [phone] Phone Care Team Providers Care Director Of Cardiology Name Role Phone DARCI LOPEZ Attending Unavailable Immunization Immunization Date Status Additional Notes Code Code System influenza, injectable, quadrivalent, preservative free 09/26/2023 Completed 150 CVX Social History Type Status Start Date End Date Code Code Syst em Smoking History Never smoker (Never Smoked) [id number] SNOMED CT Sex Female Hospital Discharge Instructions [...] Code System No Known Drug Allergies Active 171107671 SNOMED-CT Plan of Treatment US OB COMPLETE 10/01/2023 US OB LIMITED 06/26/2023 US OB COMPLETE 05/29/2023 US OB / TV 03/27/2023 Encounters Encounter Diagnosis Start Date Code Code Sys tem Gestational [-induc ed] hypertension without significant proteinuria, third trimester 09/28/2023 SNOMED-CT Personal Care Team Section Performer Name Performer Role Active Date Inactive Da te
--- OUTSIDE RECORDS SUMMARY | 2024-06-15 17:45 | XMS_ITS ---
Author Organization Unknown Address [address] [place] [phone] Phone Care Team Providers Care Advertising Representative Name Role Phone Unavailable [employer] Unavailable DARCI LOPEZ Attending Unavailable TEMO WILLETT Primary Unavailable Immunization Immunization Date Status Additional Notes Code Code System influenza, injectable, quadrivalent, preservative free 09/26/2023 Completed 150 CVX Results COMPREHENSIVE METABOLIC PANE L (CMP) - Collect Date/Time: 10/07/2023 06:30 [facility] ID: [id number] - [id number] [address] [place] [address], [address] LOINC: 20910-2 Test Value Unit Reference Range Code Code System Flag GLUCOSE 156 mg/dL L=70 H=116 2345-7 LOINC H BUN 14 mg/dL L=6 H=25 3094-0 LOINC CREATININE 0.87 mg/dL L=0.51 H=0.95 2160-0 LOINC SODIUM SERUM 128 mmol/L L=136 H=145 2951-2 LOINC L POTASSIUM SERUM 4.2 mmol/L L=3.4 H=5.2 2823-3 LOINC CHLORIDE SERUM 98 mmol/L L=96 H=110 2075-0 LOINC CARBON DIOXIDE (CO2) 20 mmol/L L=22 H=34 2028-9 LOINC L ANION GAP 10.3 mmol/L 07886-7 LOINC CALCIUM SERUM 7.5 mg/dL L=8.2 H=10.2 69486-8 LOINC L BILIRUBIN TOTAL 0.2 mg/dL L=0.0 H=1.3 1975-2 LOINC ALK. PHOS. 156 U/L L=46 H=116 6768-6 LOINC H SGOT (AST) 28 U/L L=15 H=37 1920-8 LOINC SGPT (ALT) 31 U/L L=12 H=78 1742-6 LOINC TOTAL PROTEIN 5.1 gm/dL L=6.0 H=8.0 2885-2 LOINC L ALBUMIN 2.1 gm/dL L=3.4 H=5.0 1751-7 LOINC L AGE 38 years eGFR (non-Afr.Amer.) 74 mL/min 10287-9 LOINC eGFR (Afr-Lao) 89 mL/min 39823-8 LOINC CBC W/ DIFFERENTIAL* - Colle ct Date/Time: 10/07/2023 06:30 [facility] ID: [id number] [address] [place] [address], [address] LOINC: 35717-9 Test Value Unit Reference Range Code Code System Flag WBC 15.71 th/cmm L=5.00 H=10.00 6690-2 LOINC H NEUT % 89.3 % L=40.0 H=80.0 H LYMPH % 5.3 % L=10.0 H=50.0 L MONO % 4.5 % L=2.0 H=12.0 43844-4 LOINC EOS % 0.0 % L=0.0 H=8.0 BASO % 0.1 % L=0.0 H=3.0 IG % 0.8 % L=0.0 H=1.1 2514-8 LOINC NRBC % 0.0 % L=0.0 H=0.0 25633-3 LOINC NEUT abs count 14.0 th/cmm L=1.6 H=8.4 751-8 LOINC H LYMPH abs count 0.8 th/cmm L=1.5 H=4.0 731-0 LOINC L MONO abs count 0.7 th/cmm L=0.2 H=1.0 742-7 LOINC EOS abs count 0.0 th/cmm L=0.0 H=0.5 711-2 LOINC BASO abs count 0.0 th/cmm L=0.0 H=0.2 704-7 LOINC IG abs count 0.1 th/cmm L=0.0 H=0.1 76433-6 LOINC NRBC abs count 0.0 mil/cmm L=0.0 H=0.0 57838-8 LOINC RBC 3.51 mil/cmm L=3.90 H=5.40 789-8 LOINC L HEMOGLOBIN 10.5 gm/dL L=12.0 H=16.0 718-7 LOINC L HEMATOCRIT 30 % L=37 H=47 4544-3 LOINC L MCV 85 fL L=82 H=92 787-2 LOINC MCH 29.9 pg L=27.0 H=31.0 785-6 LOINC MCHC 35.2 % L=32.0 H=36.0 786-4 LOINC RDW-SD 38.9 fL L=39.0 H=49.0 788-0 LOINC L PLATELET COUNT 213 th/cmm L=150 H=450 777-3 LOINC COMPREHENSIVE METABOLIC PANE L ([facility]) - Collect Date/Time: 10/06/2023 21:25 [facility] ID: [id number] - [id number] [address] [place], [place], [address] LOINC: 95111-0 Test Value Unit Reference Range Code Code System Flag GLUCOSE 123 mg/dL L=70 H=116 2345-7 LOINC H BUN 13 mg/dL L=6 H=25 3094-0 LOINC CREATININE 0.84 mg/dL L=0.51 H=0.95 2160-0 LOINC SODIUM SERUM 127 mmol/L L=136 H=145 2951-2 LOINC L POTASSIUM SERUM 4.4 mmol/L L=3.4 H=5.2 2823-3 LOINC CHLORIDE SERUM 98 mmol/L L=96 H=110 2075-0 LOINC CARBON DIOXIDE (CO2) 19 mmol/L L=22 H=34 2028-9 LOINC L ANION GAP 9.8 mmol/L 31783-8 LOINC CALCIUM SERUM 7.8 mg/dL L=8.2 H=10.2 49739-1 LOINC L BILIRUBIN TOTAL 0.3 mg/dL L=0.0 H=1.3 1975-2 LOINC ALK. PHOS. 188 U/L L=46 H=116 6768-6 LOINC H SGOT (AST) 32 U/L L=15 H=37 1920-8 LOINC SGPT (ALT) 33 U/L L=12 H=78 1742-6 LOINC TOTAL PROTEIN 6.0 gm/dL L=6.0 H=8.0 2885-2 LOINC ALBUMIN 2.5 gm/dL L=3.4 H=5.0 1751-7 LOINC L AGE 38 years eGFR (non-Afr.Amer.) 77 mL/min 23760-6 LOINC eGFR (Afr-Lao) 93 mL/min 48132-4 LOINC CBC W/ DIFFERENTIAL* - Colle ct Date/Time: 10/06/2023 21:25 [facility] ID: [id number] [address] [place], [place], [address] LOINC: 19374-0 Test Value Unit Reference Range Code Code System Flag WBC 15.68 th/cmm L=5.00 H=10.00 6690-2 LOINC H NEUT % 91.0 % L=40.0 H=80.0 H LYMPH % 4.8 % L=10.0 H=50.0 L MONO % 3.6 % L=2.0 H=12.0 59314-9 LOINC EOS % 0.0 % L=0.0 H=8.0 BASO % 0.1 % L=0.0 H=3.0 IG % 0.5 % L=0.0 H=1.1 2514-8 LOINC NRBC % 0.0 % L=0.0 H=0.0 37426-4 LOINC NEUT abs count 14.3 th/cmm L=1.6 H=8.4 751-8 LOINC H LYMPH abs count 0.8 th/cmm L=1.5 H=4.0 731-0 LOINC L MONO abs count 0.6 th/cmm L=0.2 H=1.0 742-7 LOINC EOS abs count 0.0 th/cmm L=0.0 H=0.5 711-2 LOINC BASO abs count 0.0 th/cmm L=0.0 H=0.2 704-7 LOINC IG abs count 0.1 th/cmm L=0.0 H=0.1 36031-1 LOINC NRBC abs count 0.0 mil/cmm L=0.0 H=0.0 03383-0 LOINC RBC 4.22 mil/cmm L=3.90 H=5.40 789-8 LOINC HEMOGLOBIN 12.5 gm/dL L=12.0 H=16.0 718-7 LOINC HEMATOCRIT 36 % L=37 H=47 4544-3 LOINC L MCV 85 fL L=82 H=92 787-2 LOINC MCH 29.6 pg L=27.0 H=31.0 785-6 LOINC MCHC 34.9 % L=32.0 H=36.0 786-4 LOINC RDW-SD 38.7 fL L=39.0 H=49.0 788-0 LOINC L PLATELET COUNT 221 th/cmm L=150 H=450 777-3 LOINC LDH (LACTATE DEHYDROGENASE)* - Collect Date/Time: 10/06/2023 09:00 [facility] ID: [id number] - [id number] [address] [place] [address], [address] LOINC: 2532-0 Test Value Unit Reference Range Code Code System Flag LDH 233 U/L L=85 H=185 2532-0 LOINC H URIC ACID SERUM - Collect Da te/Time: 10/06/2023 09:00 [facility] ID: [id number] [address] [place] [address], [address] LOINC: 3084-1 Test Value Unit Reference Range Code Code System Flag URIC ACID SERUM 5.1 mg/dL L=2.0 H=7.0 COMPREHENSIVE METABOLIC PANE L (CMP) - Collect Date/Time: 10/06/2023 09:00 [facility] ID: [id number] [address] [place] [address], [address] LOINC: 27800-2 Test Value Unit Reference Range Code Code System Flag GLUCOSE 89 mg/dL L=70 H=116 2345-7 LOINC BUN 11 mg/dL L=6 H=25 3094-0 LOINC CREATININE 0.67 mg/dL L=0.51 H=0.95 2160-0 LOINC SODIUM SERUM 128 mmol/L L=136 H=145 2951-2 LOINC L POTASSIUM SERUM 4.3 mmol/L L=3.4 H=5.2 2823-3 LOINC CHLORIDE SERUM 99 mmol/L L=96 H=110 2075-0 LOINC CARBON DIOXIDE (CO2) 20 mmol/L L=22 H=34 2028-9 LOINC L ANION GAP 9.3 mmol/L 00262-5 LOINC CALCIUM SERUM 8.0 mg/dL L=8.2 H=10.2 16462-0 LOINC L BILIRUBIN TOTAL 0.3 mg/dL L=0.0 H=1.3 1975-2 LOINC ALK. PHOS. 199 U/L L=46 H=116 6768-6 LOINC H SGOT (AST) 34 U/L L=15 H=37 1920-8 LOINC SGPT (ALT) 40 U/L L=12 H=78 1742-6 LOINC TOTAL PROTEIN 6.0 gm/dL L=6.0 H=8.0 2885-2 LOINC ALBUMIN 2.6 gm/dL L=3.4 H=5.0 1751-7 LOINC L AGE 38 years eGFR (non-Afr.Amer.) 100 mL/min 01097-6 LOINC eGFR (Afr-Lao) > 120 mL/min 76205-2 LOINC CBC W/ DIFFERENTIAL* - Colle ct Date/Time: 10/06/2023 09:00 [facility] ID: [id number] [address] [place], [place], [address] LOINC: 29156-3 Test Value Unit Reference Range Code Code System Flag WBC 10.81 th/cmm L=5.00 H=10.00 6690-2 LOINC H NEUT % 85.0 % L=40.0 H=80.0 H LYMPH % 9.9 % L=10.0 H=50.0 L MONO % 4.4 % L=2.0 H=12.0 57225-8 LOINC EOS % 0.0 % L=0.0 H=8.0 BASO % 0.2 % L=0.0 H=3.0 IG % 0.5 % L=0.0 H=1.1 2514-8 LOINC NRBC % 0.0 % L=0.0 H=0.0 98632-8 LOINC NEUT abs count 9.2 th/cmm L=1.6 H=8.4 751-8 LOINC H LYMPH abs count 1.1 th/cmm L=1.5 H=4.0 731-0 LOINC L MONO abs count 0.5 th/cmm L=0.2 H=1.0 742-7 LOINC EOS abs count 0.0 th/cmm L=0.0 H=0.5 711-2 LOINC BASO abs count 0.0 th/cmm L=0.0 H=0.2 704-7 LOINC IG abs count 0.1 th/cmm L=0.0 H=0.1 08717-3 LOINC NRBC abs count 0.0 mil/cmm L=0.0 H=0.0 84287-1 LOINC RBC 4.25 mil/cmm L=3.90 H=5.40 789-8 LOINC HEMOGLOBIN 12.8 gm/dL L=12.0 H=16.0 718-7 LOINC HEMATOCRIT 36 % L=37 H=47 4544-3 LOINC L MCV 84 fL L=82 H=92 787-2 LOINC MCH 30.1 pg L=27.0 H=31.0 785-6 LOINC MCHC 36.0 % L=32.0 H=36.0 786-4 LOINC RDW-SD 38.2 fL L=39.0 H=49.0 788-0 LOINC L PLATELET COUNT 221 th/cmm L=150 H=450 777-3 LOINC LDH (LACTATE DEHYDROGENASE)* - Collect Date/Time: 10/05/2023 13:30 [facility] ID: [id number] [address] [place], [place], [address] LOINC: 2532-0 Test Value Unit Reference Range Code Code System Flag LDH 234 U/L L=85 H=185 2532-0 LOINC H COMPREHENSIVE METABOLIC PANE L (CMP) - Collect Date/Time: 10/05/2023 13:20 [facility] ID: [id number] [address] [place] [address], [address] LOINC: 22799-4 Test Value Unit Reference Range Code Code System Flag GLUCOSE 87 mg/dL L=70 H=116 2345-7 LOINC BUN 11 mg/dL L=6 H=25 3094-0 LOINC CREATININE 0.63 mg/dL L=0.51 H=0.95 2160-0 LOINC SODIUM SERUM 132 mmol/L L=136 H=145 2951-2 LOINC L POTASSIUM SERUM 4.5 mmol/L L=3.4 H=5.2 2823-3 LOINC CHLORIDE SERUM 103 mmol/L L=96 H=110 2075-0 LOINC CARBON DIOXIDE (CO2) 21 mmol/L L=22 H=34 2028-9 LOINC L ANION GAP 8.0 mmol/L 51037-1 LOINC CALCIUM SERUM 9.1 mg/dL L=8.2 H=10.2 67069-0 LOINC BILIRUBIN TOTAL 0.2 mg/dL L=0.0 H=1.3 1975-2 LOINC ALK. PHOS. 194 U/L L=46 H=116 6768-6 LOINC H SGOT (AST) 32 U/L L=15 H=37 1920-8 LOINC SGPT (ALT) 36 U/L L=12 H=78 1742-6 LOINC TOTAL PROTEIN 5.8 gm/dL L=6.0 H=8.0 2885-2 LOINC L ALBUMIN 2.4 gm/dL L=3.4 H=5.0 1751-7 LOINC L AGE 38 years eGFR (non-Afr.Amer.) 107 mL/min 90422-8 LOINC eGFR (Afr-Lao) > 120 mL/min 09159-9 LOINC URIC ACID SERUM - Collect Da te/Time: 10/05/2023 13:20 [facility] ID: [id number] [address] [place] [address], [address] LOINC: 3084-1 Test Value Unit Reference Range Code Code System Flag URIC ACID SERUM 4.8 mg/dL L=2.0 H=7.0 CBC W/ DIFFERENTIAL* - Colle ct Date/Time: 10/05/2023 11:45 [facility] ID: [id number] [address] [place] [address], [address] LOINC: 27925-2 Test Value Unit Reference Range Code Code System Flag WBC 9.28 th/cmm L=5.00 H=10.00 6690-2 LOINC NEUT % 79.1 % L=40.0 H=80.0 LYMPH % 13.8 % L=10.0 H=50.0 MONO % 6.4 % L=2.0 H=12.0 53177-2 LOINC EOS % 0.1 % L=0.0 H=8.0 BASO % 0.2 % L=0.0 H=3.0 IG % 0.4 % L=0.0 H=1.1 2514-8 LOINC NRBC % 0.0 % L=0.0 H=0.0 83401-0 LOINC NEUT abs count 7.3 th/cmm L=1.6 H=8.4 751-8 LOINC LYMPH abs count 1.3 th/cmm L=1.5 H=4.0 731-0 LOINC L MONO abs count 0.6 th/cmm L=0.2 H=1.0 742-7 LOINC EOS abs count 0.0 th/cmm L=0.0 H=0.5 711-2 LOINC BASO abs count 0.0 th/cmm L=0.0 H=0.2 704-7 LOINC IG abs count 0.0 th/cmm L=0.0 H=0.1 69297-0 LOINC NRBC abs count 0.0 mil/cmm L=0.0 H=0.0 08948-4 LOINC RBC 4.15 mil/cmm L=3.90 H=5.40 789-8 LOINC HEMOGLOBIN 12.4 gm/dL L=12.0 H=16.0 718-7 LOINC HEMATOCRIT 35 % L=37 H=47 4544-3 LOINC L MCV 85 fL L=82 H=92 787-2 LOINC MCH 29.9 pg L=27.0 H=31.0 785-6 LOINC MCHC 35.2 % L=32.0 H=36.0 786-4 LOINC RDW-SD 38.1 fL L=39.0 H=49.0 788-0 LOINC L PLATELET COUNT 208 th/cmm L=150 H=450 777-3 LOINC TYPE AND SCREEN* - Collect D ate/Time: 10/04/2023 19:00 [facility] ID: [id number] [address] [place], [place], [id number] LOINC: Test Value Unit Reference Range Code Code System Flag Blood Group A 883-9 LOINC Rh (D) NEGATIVE 79537-1 LOINC Antibody Screen NEGATIVE 1005-8 LOINC [facility] COVID GENEXPERT* - Co llect Date/Time: 10/04/2023 17:00 [facility] ID: [id number] [address] [place], [place], [id number] LOINC: 84804-8 Test Value Unit Reference Range Code Code System Flag COVID NEGATIVE Normal: Negative 02032-7 LOINC SOURCE= Anterior nasal 18083-4 LOINC Tier- INPATIENT/ED 44105-9 LOINC CORRECTED Social History Type Status Start Date End Date Code Code Syst em Smoking History Never smoker (Never Smoked) [id number] SNOMED CT Sex Female Vital Signs Vital Sign Value Unit [place] [facility] [place] Unit Date/Time Recent/Initial? Code Code System Body Mass Index 34.01 kg/m2 10/05/2023 01:52 Initial 42425 -5 LOINC Systolic Blood Pressure 137 mm[Hg] 10/09/2023 07:30 Most Recent 8480- 6 LOINC Diastolic Blood Pressure 93 mm[Hg] 10/09/2023 07:30 Most Recent 8462- 4 LOINC Systolic Blood Pressure 156 mm[Hg] 10/04/2023 15:38 Initial 8480- 6 LOINC Diastolic Blood Pressure 92 mm[Hg] 10/04/2023 15:38 Initial 8462- 4 LOINC Body Surface Area 1.87 m2 10/05/2023 01:52 Initial 3140- 1 LOINC Height 154.940 0 cm 61.00 in 10/05/2023 01:52 Initial 8302- 2 LOINC O2 Saturation 98 % 2022 07:30 Most Recent 60517 -5 LOINC O2 Saturation 100 % 2022 15:38 Initial 73905 -5 LOINC Pulse 67.0 /min 10/09/2023 07:30 Most Recent 8867- 4 LOINC Pulse 65.0 /min 10/04/2023 15:38 Initial 8867- 4 LOINC Respiration 16 /min 10/09/20 07:30 Most Recent 9279- 1 LOINC Respiration 16 /min 10/04/20 15:38 Initial 9279- 1 LOINC Temperature 36.8 Elissa 98.2 F 10/09/20 07:30 Most Recent 8310- 5 LOINC Temperature 36.8 Elissa 98.2 F 10/04/20 15:38 Initial 8310- 5 LOINC Weight 81.65 kg 180.00 lbs 10/05/2023 01:52 Initial 34114 -7 LOINC Hospital Discharge Instructions Should you have any questions prior to discharge, please contact a member of your healthcare team. If you have left the hospital and have any questions, please contact your primary care physician. Reason For Referral No Data Found Procedures Procedure Name Date Status Code Code Syste m Delivery of Products of Conc eption, External Approach 10/04/2023 completed 30J7ZNJ [id number] Repair Perineum Skin, External Approach 10/07/2023 complet ed 5PW1JTC [id number] Introduction of Other Hormon e into Peripheral Vein, Percutaneous Approach 10/04/2023 completed 2M317KH [id number] Monitoring of Products of Co nception, Cardiac Rate, External Approach 10/04/2023 completed 4P1AOGJ [id number] Drainage of Amniotic Fl, The rap from POC, Via Opening 10/04/2023 completed 67106BZ [id number] Allergies and Adverse Reactions Allergy Substance Reaction Severity Start Date Concern Status Co de Code System No Known Drug Allergies Active [id number] SNOMED-CT Plan of Treatment US OB COMPLETE 10/01/2023 US OB LIMITED 06/26/2023 US OB COMPLETE 05/29/2023 US OB / TV 03/27/2023 Encounters Encounter Diagnosis Start Date Code Code Sys tem Severe pre-eclampsia complicating childbirth 3 SNOMED-CT Personal Care Team Section Performer Name Performer Role Active Date Inactive Da te Discharge Summary Notes [facility] 10/09/2023 10:41 Discharge Summary 10/09/2023 10:15 ID/Summary: pt name Patient Name: TICO DYE , age Age: 38 years , who had vaginal of live infant boy/girl on _10/07/23__ at 01:53 at 37weeks 5days. Significant complications of labor, , and/or recovery thus far: Developed pre-eclampsia --> IOL then with severe features and got magSo4 and PO labetalol in labor. SUBJECTIVE: Recovering well, feeling ready for discharge home today, help at home: from FOB and family. Had BM yesterday after drinking smooth move tea (senna). Has been taking all PRN med inc. colace and plans to continue at home. well with only mild soreness. Open to HH referral and is asking for breast pump Rx as her CPM (CONCEPCION in from planned HB) is currently attending 2 labors and may not be able to get breat pump to her as previously planned. Pain: well controlled with PRN ibuprofen and acetominophen. Bleeding: WNL. Infant feeding: doing well - lots of colostrum, no nipple trauma OBJECTIVE: Vital signs: Vital Signs: Last 24 Hours Date/Time BP (mm/Hg) BP Position/Site MAP (mm/Hg) Heart Rate Resp Temp (C) Temp (F) SPO2% O2 Device Blood Sugar (mg/dL) Pain Score Weight (kg) Weight (lbs/ozs) 10/09/2023 00:25 131/66 LYING/L ARM 88 66 16 37.1 TEMPORAL 98.8 TEMPORAL 98 % 10/08/2023 21:00 131/60 LYING/L ARM 84 80 10/08/2023 20:00 141/82 LYING/L ARM 102 68 16 37.1 ORAL 98.8 ORAL 10/08/2023 16:50 139/83 SITTING/R ARM 102 68 18 36.3 ORAL 97.3 ORAL 10/08/2023 13:15 134/83 LYING/L ARM 100 10/08/2023 12:15 131/91 SITTING/L ARM 104 67 16 37.1 ORAL 98.8 ORAL General: Appears well, rested, calm, tired but happy Breasts: soft, non-tender, nipples everted and intact, colostrum easy to express : not observed, but going well per Pt and RN report Abdomen: soft, non-tender. Fundus: FFC 2fb below umbilicus Perineum/vulva: no exam d/t no c/o. Lochia: rubra, moderate, no odor Lower extremities: +3 edema, no erythema ASSESSMENT: P1 s/p with pre-ecl. S/p 24 mag So4 PP and feeling well. Continues on 200mg PO labetalol BID. Recovering well on day 2, off to a good start, meeting pp recovery milestones. PLAN: discharge home today w/ home health visit for BP check in 2 days. F/U in clinic in 1 week. Then 2wk and 6 wk PP visits or sooner PRN. Reviewed home self-care, expectations, warning signs. Discharge medications: labetalol 200 mg PO BID - given two tabs from [facility] to go home with d[facility]t [facility] E- Rx sent to [facility] for same x 30 days. Ibuprofen 600 mg PO Q 6 hrs PRN pain Acetaminophen 650 mg PO Q 4 hrs PRN pain Docusate 100 mg PO BID PRN constipation multivitamin and mineral supplement: 1 tablet PO daily History and Physical Notes [facility] 10/04/2023 16:37 L&D INDUCTION OF LABOR Admission H&P Note 10/04/2023 16:01 SUBJECTIVE/HPI: __ Patient Name: TICO DYE is a Age: 38 years year old at 37weeks 2days gestation with an estimated due date of 10/23/23 who presents to the [facility] for induction of labor for preeclampsia without severe features. BPs higher today at NST/BP check than within the last week, P/C ratio today .31. All other labs normal, see below, Reports baby is active as per usual. Denies any bleeding, leaking or regular uterine contractions. Denies MARROQUIN, RUQ/epigastric pain, N/V, visual changes, oliguria, dysuria. Does states swelling in extremities has increased and does have swelling in her face. 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 Cardiovascular: normal HR, normal rate, rhythm, no murmurs or extra sounds Respiratory: lungs clear to auscultation, no cough Neuro: DTRs: 2+, no clonus Lower extremities: 1+ edema to calf Heart Rate: Baseline: 135 bpm Variability: moderate Decelerations: none Contractions: no regular UCs, some uterine irritability- mild Abdomen: gravid, soft, non-tender position: JULIA/T, Est Weight: 6#4 oz at 36+ w by US, EMMANUEL 17cm, 40% EFW Cervical exam: FT ext os/long/balotable,mid/posterior, moderately soft Baig Score: 1-2 Labs: blood type A neg, antibody- pending Rubella immune GBS: POSITIVE- NKDA COVID: pending Lab Results: Last 8 Hours Test Results Units Reference Range Ordered Collected [...] mL/min 10/04/2023 09:00 10/04/2023 09:25 final eGFR (Afr-Lao) >120 mL/min 10/04/2023 09:00 10/04/2023 09:25 final URIC ACID SERUM 4.4 mg/dL L=2.0 H=7.0 10/04/2023 00:00 10/04/2023 09:25 final ASSESSMENT: 1. 38 year old here at 37w2d gestation for induction of labor for preeclampsia without severe features 2. heart rate Category I 3. GBS positive- membranes intact 4. RH negative Shoulder dystocia risk: low Hemorrhage risk: med PLAN: 1. Admit to Birthing Center for induction of labor. Discussed R/B/A of cervidil, misoprostol, balloon catheter, Pitocin and plan of care as process progresses. Plan to start with cervidil after discussion and questions answered. Induction started with patients consent. 2. FHR monitoring: per guidelines for current method of induction, may defer hourly auscultation with cervidil or misoprostol if BP/Pre- E status is stable and Cat 1 FHR if pt sleeping. 3. Pt desires to avoid over tx with GBS prophylaxis, plan to start in active labor or with ROM. 3. Anticipate spontaneous vaginal . Saline lock. Recommending active management of third stage labor (AMTSL). 4. Labs/IV: Already drawn except T&S to be done. Covid pending. Likely to repeat Pre-E labs daily until delivered. Magnesium sulfate and antihypertensives if severe features present. 5. Rhogam as needed 6. Reassess in am or prn for next IOL step per cervical ripening 7. Dr. Bailey aware of pt status and agrees with plan. Progress Notes [facility] 10/06/2023 22:22 LABOR PROGRESS NOTE 10/06/2023 22:11 Patient Name: TICO DYE Age: 38 years here with preeclampsia at 37w4d S: comfortable with epidural, asleep now O: Vital signs: BP 119/74, HR 77, RR 16, O2sat 97% 37.1 General: asleep now Continuous FHR tracing: Baseline: 115 variability: minimal and moderate accelerations: no decelerations: early decelerations intermittently Contractions: Q 4-5 minutes, lasting 1 min Pitocin at 18 milliunits/min Vag exam: at 21:00: 5/80/-2, OP Labs: just drawn, pending I&O: In over the past 2 hours: 192 IV fluids and meds Urine output: 125 over the past 2 hours, dark A: primigravida with severe preeclampsia, inducing, not yet in active labor, SROM pitocin at 18 Cat 1-2 FHR tracing P: Preeclampsia w/ severe features, BPs normalized since epidural start, holding 10pm Labetalol dose for now. Dr. Serna being kept apprised of condition, progress. Encourage sleep as able. Vag exam in 2 hours to assess progress. Labs just drawn pending (CBC and CMP). 6am draw ordered [facility] 10/06/2023 17:43 LABOR PROGRESS NOTE 10/06/2023 16:26 Patient Name: TICO DYE Age: 38 years here at 37 wks with preeclampsia with severe features, labor induction S: Contractions now very painful, disappointed she is not coping as well as I hoped. might try nitrous. Had mild MARROQUIN, resolved after acetaminophen. Nausea and vomiting, zofran helps. Tired. Has her friend Olya who is a policy change clerk with her. her best friend Lexus will be at the . Her man friend Carlos also has been in and out. if she could only have 2 people, would be Lexus and Olya. Requested to meet OB Dr. Serna O: Vital signs: Vital Signs: Last 3 Hours Date/Time BP (mm/Hg) BP Position/Site MAP (mm/Hg) Heart Rate Resp Temp (C) Temp (F) SPO2% O2 Device Blood Sugar (mg/dL) Pain Score Height (cm) Height (in) Weight (kg) Weight (lbs/ozs) BMI Head Cir (cm) 10/06/2023 17:01 153/88 SITTING/R ARM 110 18 98 % 10/06/2023 16:34 157/90 SITTING/R ARM 112 71 18 10/06/2023 16:01 150/85 LYING/R ARM 107 65 18 36.2 TEMPORAL SCANNING 97.2 TEMPORAL SCANNING 98 % 10/06/2023 15:30 133/83 LYING/R ARM 100 74 10/06/2023 15:01 130/79 SITTING/R ARM 96 General: looks tired, working with contractions, breathing and relaxing with reminders from her friend, labor support Continuous FHR tracing: Baseline: 120 variability: moderate accelerations: present decelerations: absent Contractions: Q 3-4 minutes, lasting 1 min Pitocin dose running at 15 milliunits/min Vag exam: at 8am: 4/50/-2 then at 1pm: 4/50/-2, mid, soft, AROM clear fluid LE: +4 edema DTRs: patellar 3+, no clonus Urine output: 125 cc in the past 2 hrs MgSO4 running at 2 g/hr for seizure prophylaxis Lab Results: This Visit Test Results Units Reference Range Ordered Collected Status WBC 10.81 H th/cmm L=5.00 H=10.00 10/06/2023 00:00 10/06/2023 09:00 final NEUT % 85 H % L=40.0 H=80.0 10/06/2023 00:00 10/06/2023 09:00 final LYMPH % 9.9 L % L=10.0 H=50.0 10/06/2023 00:00 10/06/2023 09:00 final MONO % 4.4 % L=2.0 H=12.0 10/06/2023 00:00 10/06/2023 09:00 final EOS % 0 % L=0.0 H=8.0 10/06/2023 00:00 10/06/2023 09:00 final BASO % 0.2 % L=0.0 H=3.0 10/06/2023 00:00 10/06/2023 09:00 final IG % 0.5 % L=0.0 H=1.1 10/06/2023 00:00 10/06/2023 09:00 final NRBC % 0 % L=0.0 H=0.0 10/06/2023 00:00 10/06/2023 09:00 final NEUT abs count 9.2 H th/cmm L=1.6 H=8.4 10/06/2023 00:00 10/06/2023 09:00 final LYMPH abs count 1.1 L th/cmm L=1.5 H=4.0 10/06/2023 00:00 10/06/2023 09:00 final MONO abs count 0.5 th/cmm L=0.2 H=1.0 10/06/2023 00:00 10/06/2023 09:00 final EOS abs count 0 th/cmm L=0.0 H=0.5 10/06/2023 00:00 10/06/2023 09:00 final BASO abs count 0 th/cmm L=0.0 H=0.2 10/06/2023 00:00 10/06/2023 09:00 final IG abs count 0.1 th/cmm L=0.0 H=0.1 10/06/2023 00:00 10/06/2023 09:00 final NRBC abs count 0 mil/cmm L=0.0 H=0.0 10/06/2023 00:00 10/06/2023 09:00 final RBC 4.25 mil/cmm L=3.90 H=5.40 10/06/2023 00:00 10/06/2023 09:00 final HEMOGLOBIN 12.8 gm/dL L=12.0 H=16.0 10/06/2023 00:00 10/06/2023 09:00 final HEMATOCRIT 36 L % L=37 H=47 10/06/2023 00:00 10/06/2023 09:00 final MCV 84 fL L=82 H=92 10/06/2023 00:00 10/06/2023 09:00 final MCH 30.1 pg L=27.0 H=31.0 10/06/2023 00:00 10/06/2023 09:00 final MCHC 36 % L=32.0 H=36.0 10/06/2023 00:00 10/06/2023 09:00 final RDW-SD 38.2 L fL L=39.0 H=49.0 10/06/2023 00:00 10/06/2023 09:00 final PLATELET COUNT 221 th/cmm L=150 H=450 10/06/2023 00:00 10/06/2023 09:00 final GLUCOSE 89 mg/dL L=70 H=116 10/06/2023 00:00 10/06/2023 09:00 final BUN 11 mg/dL L=6 H=25 10/06/2023 00:00 10/06/2023 09:00 final CREATININE 0.67 mg/dL L=0.51 H=0.95 10/06/2023 00:00 10/06/2023 09:00 final SODIUM SERUM 128 L mmol/L L=136 H=145 10/06/2023 00:00 10/06/2023 09:00 final POTASSIUM SERUM 4.3 mmol/L L=3.4 H=5.2 10/06/2023 00:00 10/06/2023 09:00 final CHLORIDE SERUM 99 mmol/L L=96 H=110 10/06/2023 00:00 10/06/2023 09:00 final CARBON DIOXIDE (CO2) 20 L mmol/L L=22 H=34 10/06/2023 00:00 10/06/2023 09:00 final ANION GAP 9.3 mmol/L 10/06/2023 00:00 10/06/2023 09:00 final CALCIUM SERUM 8 L mg/dL L=8.2 H=10.2 10/06/2023 00:00 10/06/2023 09:00 final BILIRUBIN TOTAL 0.3 mg/dL L=0.0 H=1.3 10/06/2023 00:00 10/06/2023 09:00 final ALK. PHOS. 199 H U/L L=46 H=116 10/06/2023 00:00 10/06/2023 09:00 final SGOT (AST) 34 U/L L=15 H=37 10/06/2023 00:00 10/06/2023 09:00 final SGPT (ALT) 40 U/L L=12 H=78 10/06/2023 00:00 10/06/2023 09:00 final TOTAL PROTEIN 6 gm/dL L=6.0 H=8.0 10/06/2023 00:00 10/06/2023 09:00 final ALBUMIN 2.6 L gm/dL L=3.4 H=5.0 10/06/2023 00:00 10/06/2023 09:00 final AGE 38 years 10/06/2023 00:00 10/06/2023 09:00 final eGFR (non-Afr.Amer.) 100 mL/min 10/06/2023 00:00 10/06/2023 09:00 final eGFR (Afr-Lao) >120 mL/min 10/06/2023 00:00 10/06/2023 09:00 final LDH 233 H U/L L=85 H=185 10/06/2023 00:00 10/06/2023 09:00 final URIC ACID SERUM 5.1 mg/dL L=2.0 H=7.0 10/06/2023 00:00 10/06/2023 09:00 final LDH 234 H U/L L=85 H=185 10/05/2023 14:02 10/05/2023 13:30 final GLUCOSE 87 mg/dL L=70 H=116 10/05/2023 13:14 10/05/2023 13:20 final BUN 11 mg/dL L=6 H=25 10/05/2023 13:14 10/05/2023 13:20 final CREATININE 0.63 mg/dL L=0.51 H=0.95 10/05/2023 13:14 10/05/2023 13:20 final SODIUM SERUM 132 L mmol/L L=136 H=145 10/05/2023 13:14 10/05/2023 13:20 final POTASSIUM SERUM 4.5 mmol/L L=3.4 H=5.2 10/05/2023 13:14 10/05/2023 13:20 final CHLORIDE SERUM 103 mmol/L L=96 H=110 10/05/2023 13:14 10/05/2023 13:20 final CARBON DIOXIDE (CO2) 21 L mmol/L L=22 H=34 10/05/2023 13:14 10/05/2023 13:20 final ANION GAP 8 mmol/L 10/05/2023 13:14 10/05/2023 13:20 final CALCIUM SERUM 9.1 mg/dL L=8.2 H=10.2 10/05/2023 13:14 10/05/2023 13:20 final BILIRUBIN TOTAL 0.2 mg/dL L=0.0 H=1.3 10/05/2023 13:14 10/05/2023 13:20 final ALK. PHOS. 194 H U/L L=46 H=116 10/05/2023 13:14 10/05/2023 13:20 final SGOT (AST) 32 U/L L=15 H=37 10/05/2023 13:14 10/05/2023 13:20 final SGPT (ALT) 36 U/L L=12 H=78 10/05/2023 13:14 10/05/2023 13:20 final TOTAL PROTEIN 5.8 L gm/dL L=6.0 H=8.0 10/05/2023 13:14 10/05/2023 13:20 final ALBUMIN 2.4 L gm/dL L=3.4 H=5.0 10/05/2023 13:14 10/05/2023 13:20 final AGE 38 years 10/05/2023 13:14 10/05/2023 13:20 final eGFR (non-Afr.Amer.) 107 mL/min 10/05/2023 13:14 10/05/2023 13:20 final eGFR (Afr-Lao) >120 mL/min 10/05/2023 13:14 10/05/2023 13:20 final URIC ACID SERUM 4.8 mg/dL L=2.0 H=7.0 10/05/2023 13:14 10/05/2023 13:20 final WBC 9.28 th/cmm L=5.00 H=10.00 10/05/2023 10:00 10/05/2023 11:45 final NEUT % 79.1 % L=40.0 H=80.0 10/05/2023 10:00 10/05/2023 11:45 final LYMPH % 13.8 % L=10.0 H=50.0 10/05/2023 10:00 10/05/2023 11:45 final MONO % 6.4 % L=2.0 H=12.0 10/05/2023 10:00 10/05/2023 11:45 final EOS % 0.1 % L=0.0 H=8.0 10/05/2023 10:00 10/05/2023 11:45 final BASO % 0.2 % L=0.0 H=3.0 10/05/2023 10:00 10/05/2023 11:45 final IG % 0.4 % L=0.0 H=1.1 10/05/2023 10:00 10/05/2023 11:45 final NRBC % 0 % L=0.0 H=0.0 10/05/2023 10:00 10/05/2023 11:45 final NEUT abs count 7.3 th/cmm L=1.6 H=8.4 10/05/2023 10:00 10/05/2023 11:45 final LYMPH abs count 1.3 L th/cmm L=1.5 H=4.0 10/05/2023 10:00 10/05/2023 11:45 final MONO abs count 0.6 th/cmm L=0.2 H=1.0 10/05/2023 10:00 10/05/2023 11:45 final EOS abs count 0 th/cmm L=0.0 H=0.5 10/05/2023 10:00 10/05/2023 11:45 final BASO abs count 0 th/cmm L=0.0 H=0.2 10/05/2023 10:00 10/05/2023 11:45 final IG abs count 0 th/cmm L=0.0 H=0.1 10/05/2023 10:00 10/05/2023 11:45 final NRBC abs count 0 mil/cmm L=0.0 H=0.0 10/05/2023 10:00 10/05/2023 11:45 final RBC 4.15 mil/cmm L=3.90 H=5.40 10/05/2023 10:00 10/05/2023 11:45 final HEMOGLOBIN 12.4 gm/dL L=12.0 H=16.0 10/05/2023 10:00 10/05/2023 11:45 final HEMATOCRIT 35 L % L=37 H=47 10/05/2023 10:00 10/05/2023 11:45 final MCV 85 fL L=82 H=92 10/05/2023 10:00 10/05/2023 11:45 final MCH 29.9 pg L=27.0 H=31.0 10/05/2023 10:00 10/05/2023 11:45 final MCHC 35.2 % L=32.0 H=36.0 10/05/2023 10:00 10/05/2023 11:45 final RDW-SD 38.1 L fL L=39.0 H=49.0 10/05/2023 10:00 10/05/2023 11:45 final PLATELET COUNT 208 th/cmm L=150 H=450 10/05/2023 10:00 10/05/2023 11:45 final Blood Group A 10/04/2023 16:38 10/04/2023 19:00 final Rh (D) NEGATIVE 10/04/2023 16:38 10/04/2023 19:00 final Antibody Screen NEGATIVE 10/04/2023 16:38 10/04/2023 19:00 final COVID NEGATIVE Normal: Negative 10/04/2023 15:54 10/04/2023 17:00 final SOURCE= Anterior nasal 10/04/2023 15:54 10/04/2023 17:00 final Tier- OB-1 10/04/2023 15:54 10/04/2023 17:00 final A: Preeclampsia with severe features based on BPs, no severe range since started Labetalol. Cervix ripe. mago regularly on pitocin, post AROM P: Assumed care, co-managing with OB Dr. Serna at 0800 today. deflated vaginal cook balloon and gently tugged on uterine balloon which came out intact. Started pitocin at that time, now at 15 milliunits/min. recommended AROM at 12:00. patient deferred until 1pm. Will assess dilation in the next hour, recently shifted to kneeling position, will await next position change. suggested she can try nitrous for vag exam if she wishes. Reviewed hyponatremia with Dr. Serna who states she is not concerned at this level, pt is receiving IV LR fluid. [facility] 10/08/2023 08:58 Rounding Progress Note 10/08/2023 , 08:47 ID/Summary: pt name Patient Name: TICO DYE , age Age: 38 years who had vaginal of live on 10/07/23_ at 0153 at 37weeks 5days. Significant complications of labor, , and/or recovery thus far: preeclampsia with severe features requiring magnesium and labetalol in labor, prolonged active phase labor. SUBJECTIVE: Doing well overall, still very tired. Magnesium stopped at 1999 last evening, still feeling groggy. Has been up ad star in the room without dizziness, voiding WNL, bleeding light rubra no clots. Some mild cramping occasionally with BF which is getting established, baby has been sleepy while mag running but was more alert overnight. Has been doing some pumping as well and expressing some colostrum. Good appetite. No BM yet. Hoping for rest and shower today, as well as BF support. OBJECTIVE: Vital Signs: Today Date/Time BP (mm/Hg) BP Position/Site MAP (mm/Hg) Heart Rate Resp Temp (C) Temp (F) SPO2% O2 Device Blood Sugar (mg/dL) Pain Score Height (cm) Height (in) Weight (kg) Weight (lbs/ozs) BMI Head Cir (cm) 10/08/2023 03:30 125/81 LYING/R ARM 96 65 12 36.6 ORAL 97.9 ORAL 98 % General: alert and oriented x4, no acute distress, appears tired but attentive to baby : Not observed, baby currently asleep and swaddled in Dom's arms. Abdomen: soft, diffusely tender, FF at umb, midline Perineum/vulva: No laceration, not assessed Lochia: light rubra, no clots Lower extremities: +3 edema pitting edema to knees, no tenderness, no erythema ASSESSMENT: 1.s/p at 37 weeks, stable 2. preeclampsia, currently stable on PO labetalol, no worsening symptoms 3. intact perineum 4. BF getting established, baby borderline SGA and sleepy with magnesium administration in labor, now stopped and more alert PLAN: 1. Routine care after , BF support from staff and IBCLC prn. 2.Continue PO labetalol, careful observation for any worsening s/s preeclampsia. 3. Anticipate discharge home tomorrow [facility] 10/06/2023 20:50 Vaughn Aguilar is now requesting epidural for pain relief. Paged anesthesia to come see her. Asking nurse to decrease fluid level to 80-90 cc/hr total. has been getting 130 cc in 2 separate IVs, will change tubing to be able to run all on one IV site, maintain the other site with IV flush Q 8 hrs Lungs: CTA bilaterally [facility] 10/06/2023 20:52 Epidural started at 1950, now comfortable. BP dropped to 122/70, pt felt light headed, resolved. 2 deep late decelerations to dung 60's lasting 60, 90 seconds, followed by 2 small ones dung 105 bpm lasting 30 seconds and now none. Pitocin off, pt to lateral position. FHR recovered fully and pitocin restarted
--- OUTSIDE RECORDS SUMMARY | 2024-06-15 17:46 | XMS_ITS ---
Author Organization Unknown Address [address] [place] [phone] Phone Care Team Providers Care [facility] Bailiff Name Role Phone DARCI LOPEZ Attending Unavailable Immunization Immunization Date Status Additional Notes Code Code System influenza, injectable, quadrivalent, preservative free 09/26/2023 Completed 150 CVX Social History Type Status Start Date End Date Code Code Syst em Smoking History Never smoker (Never Smoked) 814830191 SNOMED CT Sex Female Hospital Discharge Instructions [...] Code System No Known Drug Allergies Active 115622601 SNOMED-CT Plan of Treatment US OB COMPLETE 10/01/2023 US OB LIMITED 06/26/2023 US OB COMPLETE 05/29/2023 US OB / TV 03/27/2023 Encounters Encounter Diagnosis Start Date Code Code Sys tem Gestational [-induc ed] hypertension without significant proteinuria, complicating childbirth 10/04/2023 SNOMED-CT Personal Care Team Section Performer Name Performer Role Active Date Inactive Da te
--- OUTSIDE RECORDS SUMMARY | 2024-06-15 17:46 | XMS_ITS ---
Author Organization Unknown Address [address] [place] [phone] Phone Care Team Providers Care Export Documents Clerk Name Role Phone YEN NARVAEZ Attending Unavailable TEMO WILLETT Primary Unavailable Immunization Immunization Date Status Additional Notes Code Code System influenza, injectable, quadrivalent, preservative free 09/26/2023 Completed 150 CVX Results COMPREHENSIVE METABOLIC PANE L (CMP) - Collect Date/Time: 10/12/2023 21:20 [facility] ID: [id number] [address] [address], [address] LOINC: 87084-2 Test Value Unit Reference Range Code Code System Flag GLUCOSE 111 mg/dL L=70 H=116 2345-7 LOINC BUN 16 mg/dL L=6 H=25 3094-0 LOINC CREATININE 0.65 mg/dL L=0.51 H=0.95 2160-0 LOINC SODIUM SERUM 131 mmol/L L=136 H=145 2951-2 LOINC L POTASSIUM SERUM 4.0 mmol/L L=3.4 H=5.2 2823-3 LOINC CHLORIDE SERUM 99 mmol/L L=96 H=110 2075-0 LOINC CARBON DIOXIDE (CO2) 22 mmol/L L=22 H=34 2028-9 LOINC ANION GAP 10.0 mmol/L 52026-4 LOINC CALCIUM SERUM 8.7 mg/dL L=8.2 H=10.2 94937-8 LOINC BILIRUBIN TOTAL 0.3 mg/dL L=0.0 H=1.3 1975-2 LOINC ALK. PHOS. 151 U/L L=46 H=116 6768-6 LOINC H SGOT (AST) 37 U/L L=15 H=37 1920-8 LOINC SGPT (ALT) 95 U/L L=12 H=78 1742-6 LOINC H TOTAL PROTEIN 6.5 gm/dL L=6.0 H=8.0 2885-2 LOINC ALBUMIN 2.7 gm/dL L=3.4 H=5.0 1751-7 LOINC L AGE 38 years eGFR (non-Afr.Amer.) 103 mL/min 16128-6 LOINC eGFR (Afr-Greenlandic) > 120 mL/min 43248-3 LOINC CBC W/ DIFFERENTIAL* - Colle ct Date/Time: 10/12/2023 21:20 [facility] ID: [id number] [address] [place], [place], [facility] LOINC: 54769-1 Test Value Unit Reference Range Code Code System Flag WBC 8.73 th/cmm L=5.00 H=10.00 6690-2 LOINC NEUT % 75.9 % L=40.0 H=80.0 LYMPH % 16.6 % L=10.0 H=50.0 MONO % 5.0 % L=2.0 H=12.0 73017-0 LOINC EOS % 1.7 % L=0.0 H=8.0 BASO % 0.3 % L=0.0 H=3.0 IG % 0.5 % L=0.0 H=1.1 2514-8 LOINC NRBC % 0.0 % L=0.0 H=0.0 46262-1 LOINC NEUT abs count 6.6 th/cmm L=1.6 H=8.4 751-8 LOINC LYMPH abs count 1.5 th/cmm L=1.5 H=4.0 731-0 LOINC MONO abs count 0.4 th/cmm L=0.2 H=1.0 742-7 LOINC EOS abs count 0.2 th/cmm L=0.0 H=0.5 711-2 LOINC BASO abs count 0.0 th/cmm L=0.0 H=0.2 704-7 LOINC IG abs count 0.0 th/cmm L=0.0 H=0.1 31499-8 LOINC NRBC abs count 0.0 mil/cmm L=0.0 H=0.0 57411-9 LOINC RBC 3.73 mil/cmm L=3.90 H=5.40 789-8 LOINC L HEMOGLOBIN 11.3 gm/dL L=12.0 H=16.0 718-7 LOINC L HEMATOCRIT 32 % L=37 H=47 4544-3 LOINC L MCV 87 fL L=82 H=92 787-2 LOINC MCH 30.3 pg L=27.0 H=31.0 785-6 LOINC MCHC 34.9 % L=32.0 H=36.0 786-4 LOINC RDW-SD 40.6 fL L=39.0 H=49.0 788-0 LOINC PLATELET COUNT 347 th/cmm L=150 H=450 777-3 LOINC URINALYSIS ROUTINE* - [facility] t Date/Time: 10/12/2023 21:05 [facility] ID: [id number] [address] [place], [place], [address] LOINC: Test Value Unit Reference Range Code Code System Flag COLLECTION MODE: NOT STATED 04807-0 LOINC Color YELLOW yellow 5778-6 LOINC Appearance SL CLOUD clear 5767-9 LOINC Glucose urine NEGATIVE negative mg/dl 32152-6 LOINC Bilirubin NEGATIVE negative 5770-3 LOINC Ketones TRACE negative mg/dl 2514-8 LOINC A Spec gravity 1.015 1.003 - 1.030 5811-5 LOINC pH urine 7.0 5.0 - 7.0 2756-5 LOINC Protein >=300 negative mg/dl 59488-4 LOINC A Urobilinogen 0.2 <or= 1 EU/dl 02271-6 LOINC Nitrite NEGATIVE negative 5802-4 LOINC Blood LARGE negative 5794-3 LOINC A Leukocytes SMALL negative 99773-7 LOINC A MICROSCOPIC* INDICATED WBCs 10-25 0-5 / hpf 84383-2 LOINC RBCs >100 0-5 / hpf 54547-2 LOINC Epith cells 0-5 0-5 / hpf 87635-4 LOINC Cell types squam+trans Crystals amorphous none Bacteria moderate none Mucus present none 8247-9 LOINC Casts none none /lpf 01014-5 LOINC Other 23058-4 LOINC Social History Type Status Start Date End Date Code Code Syst em Smoking History Never smoker (Never Smoked) 094583942 SNOMED CT Sex Female Vital Signs Vital Sign Value Unit Greeley Value Greeley Unit Date/Time Recent/Initial? Code Code System Systolic Blood Pressure 125 mm[Hg] 10/12/2023 22:36 Most Recent 8480-6 LOINC Diastolic Blood Pressure 87 mm[Hg] 10/12/2023 22:36 Most Recent 8462-4 LOINC Systolic Blood Pressure 145 mm[Hg] 10/12/2023 20:10 Initial 8480-6 LOINC Diastolic Blood Pressure 95 mm[Hg] 10/12/2023 20:10 Initial 8462-4 LOINC O2 Saturation 100 % 2022 20:10 Initial 92509- 5 LOINC Pulse 66.0 /min 10/12/2023 22:36 Most Recent 8867-4 LOINC Pulse 67.0 /min 10/12/2023 20:10 Initial 8867-4 LOINC Respiration 16 /min 10/12/20 23 20:10 Initial 9279-1 LOINC Temperature 36.7 Elissa 98.1 F 10/12/20 23 20:10 Initial 8310-5 INC Hospital Discharge Instructions Should you have any questions prior to discharge, please contact a member of your healthcare team. If you have left the hospital and have any questions, please contact your primary care physician. Reason For Referral No Data Found Allergies and Adverse Reactions Allergy Substance Reaction Severity Start Date Concern Status Co de Code System No Known Drug Allergies Active 184914761 SNOMED-CT Plan of Treatment US OB COMPLETE 10/01/2023 US OB LIMITED 06/26/2023 US OB COMPLETE 05/29/2023 US OB / TV 03/27/2023 Encounters Encounter Diagnosis Start Date Code Code Sys tem Other specified diseases and conditions complicating puerperium 10/12/2023 SNOMED-CT Personal Care Team Section Performer Name Performer Role Active Date Inactive Da te Progress Notes [facility] 10/12/2023 22:50 Patient Name: TICO DYE, : 1985, Age: 38 years Vital Signs: Last 3 Hours Date/Time BP (mm/Hg) BP Position/Site MAP (mm/Hg) Heart Rate Resp Temp (C) Temp (F) SPO2% O2 Device Blood Sugar (mg/dL) Pain Score Height (cm) Height (in) Weight (kg) Weight (lbs/ozs) BMI Head Cir (cm) 10/12/2023 22:36 125/87 SITTING/R ARM 100 66 10/12/2023 21:46 139/94 SITTING/R ARM 109 70 10/12/2023 21:05 136/87 SITTING/R ARM 103 70 10/12/2023 20:43 143/96 SITTING/R ARM 112 68 10/12/2023 20:28 152/96 SITTING/R ARM 115 63 10/12/2023 20:10 145/95 SITTING/R ARM 112 67 16 36.7 TEMPORAL 98.1 TEMPORAL 100 % Lab Results: Last 4 Hours Test Results Units Reference Range Ordered Collected Status WBC 8.73 th/cmm L=5.00 H=10.00 10/12/2023 20:59 10/12/2023 21:20 final NEUT % 75.9 % L=40.0 H=80.0 10/12/2023 20:59 10/12/2023 21:20 final LYMPH % 16.6 % L=10.0 H=50.0 10/12/2023 20:59 10/12/2023 21:20 final MONO % 5 % L=2.0 H=12.0 10/12/2023 20:59 10/12/2023 21:20 final EOS % 1.7 % L=0.0 H=8.0 10/12/2023 20:59 10/12/2023 21:20 final BASO % 0.3 % L=0.0 H=3.0 10/12/2023 20:59 10/12/2023 21:20 final IG % 0.5 % L=0.0 H=1.1 10/12/2023 20:59 10/12/2023 21:20 final NRBC % 0 % L=0.0 H=0.0 10/12/2023 20:59 10/12/2023 21:20 final NEUT abs count 6.6 th/cmm L=1.6 H=8.4 10/12/2023 20:59 10/12/2023 21:20 final LYMPH abs count 1.5 th/cmm L=1.5 H=4.0 10/12/2023 20:59 10/12/2023 21:20 final MONO abs count 0.4 th/cmm L=0.2 H=1.0 10/12/2023 20:59 10/12/2023 21:20 final EOS abs count 0.2 th/cmm L=0.0 H=0.5 10/12/2023 20:59 10/12/2023 21:20 final BASO abs count 0 th/cmm L=0.0 H=0.2 10/12/2023 20:59 10/12/2023 21:20 final IG abs count 0 th/cmm L=0.0 H=0.1 10/12/2023 20:59 10/12/2023 21:20 final NRBC abs count 0 mil/cmm L=0.0 H=0.0 10/12/2023 20:59 10/12/2023 21:20 final RBC 3.73 L mil/cmm L=3.90 H=5.40 10/12/2023 20:59 10/12/2023 21:20 final HEMOGLOBIN 11.3 L gm/dL L=12.0 H=16.0 10/12/2023 20:59 10/12/2023 21:20 final HEMATOCRIT 32 L % L=37 H=47 10/12/2023 20:59 10/12/2023 21:20 final MCV 87 fL L=82 H=92 10/12/2023 20:59 10/12/2023 21:20 final MCH 30.3 pg L=27.0 H=31.0 10/12/2023 20:59 10/12/2023 21:20 final MCHC 34.9 % L=32.0 H=36.0 10/12/2023 20:59 10/12/2023 21:20 final RDW-SD 40.6 fL L=39.0 H=49.0 10/12/2023 20:59 10/12/2023 21:20 final PLATELET COUNT 347 th/cmm L=150 H=450 10/12/2023 20:59 10/12/2023 21:20 final GLUCOSE 111 mg/dL L=70 H=116 10/12/2023 20:59 10/12/2023 21:20 final BUN 16 mg/dL L=6 H=25 10/12/2023 20:59 10/12/2023 21:20 final CREATININE 0.65 mg/dL L=0.51 H=0.95 10/12/2023 20:59 10/12/2023 21:20 final SODIUM SERUM 131 L mmol/L L=136 H=145 10/12/2023 20:59 10/12/2023 21:20 final POTASSIUM SERUM 4 mmol/L L=3.4 H=5.2 10/12/2023 20:59 10/12/2023 21:20 final CHLORIDE SERUM 99 mmol/L L=96 H=110 10/12/2023 20:59 10/12/2023 21:20 final CARBON DIOXIDE (CO2) 22 mmol/L L=22 H=34 10/12/2023 20:59 10/12/2023 21:20 final ANION GAP 10 mmol/L 10/12/2023 20:59 10/12/2023 21:20 final CALCIUM SERUM 8.7 mg/dL L=8.2 H=10.2 10/12/2023 20:59 10/12/2023 21:20 final BILIRUBIN TOTAL 0.3 mg/dL L=0.0 H=1.3 10/12/2023 20:59 10/12/2023 21:20 final ALK. PHOS. 151 H U/L L=46 H=116 10/12/2023 20:59 10/12/2023 21:20 final SGOT (AST) 37 U/L L=15 H=37 10/12/2023 20:59 10/12/2023 21:20 final SGPT (ALT) 95 H U/L L=12 H=78 10/12/2023 20:59 10/12/2023 21:20 final TOTAL PROTEIN 6.5 gm/dL L=6.0 H=8.0 10/12/2023 20:59 10/12/2023 21:20 final ALBUMIN 2.7 L gm/dL L=3.4 H=5.0 10/12/2023 20:59 10/12/2023 21:20 final AGE 38 years 10/12/2023 20:59 10/12/2023 21:20 final eGFR (non-Afr.Amer.) 103 mL/min 10/12/2023 20:59 10/12/2023 21:20 final eGFR (Afr-Greenlandic) >120 mL/min 10/12/2023 20:59 10/12/2023 21:20 final COLLECTION MODE: NOT STATED 10/12/2023 20:59 10/12/2023 21:05 final Color YELLOW yellow 10/12/2023 20:59 10/12/2023 21:05 final Appearance SL CLOUD clear 10/12/2023 20:59 10/12/2023 21:05 final Glucose urine NEGATIVE negative mg/dl 10/12/2023 20:59 10/12/2023 21:05 final Bilirubin NEGATIVE negative 10/12/2023 20:59 10/12/2023 21:05 final Ketones TRACE A negative mg/dl 10/12/2023 20:59 10/12/2023 21:05 final Spec gravity 1.015 1.003 - 1.030 10/12/2023 20:59 10/12/2023 21:05 final pH urine 7.0 5.0 - 7.0 10/12/2023 20:59 10/12/2023 21:05 final Protein >=300 A negative mg/dl 10/12/2023 20:59 10/12/2023 21:05 final Urobilinogen 0.2 10/12/2023 20:59 10/12/2023 21:05 final Nitrite NEGATIVE negative 10/12/2023 20:59 10/12/2023 21:05 final Blood LARGE A negative 10/12/2023 20:59 10/12/2023 21:05 final Leukocytes SMALL A negative 10/12/2023 20:59 10/12/2023 21:05 final MICROSCOPIC* INDICATED 10/12/2023 20:59 10/12/2023 21:05 final WBCs 10-25 0-5 / hpf 10/12/2023 20:59 10/12/2023 21:05 final RBCs >100 0-5 / hpf 10/12/2023 20:59 10/12/2023 21:05 final Epith cells 0-5 0-5 / hpf 10/12/2023 20:59 10/12/2023 21:05 final Cell types squam+trans 10/12/2023 20:59 10/12/2023 21:05 final Crystals amorphous none 10/12/2023 20:59 10/12/2023 21:05 final Bacteria moderate none 10/12/2023 20:59 10/12/2023 21:05 final Mucus present none 10/12/2023 20:59 10/12/2023 21:05 final Casts none none /lpf 10/12/2023 20:59 10/12/2023 21:05 final Other 10/12/2023 20:59 10/12/2023 21:05 final Patient's headache simply gone. Labs improved. Will set up OV or . Julisa Akers MD [facility] 10/12/2023 20:46 Patient re-presents 1 week (del 10/07/23) with persistent headache. Naturally after 3 calls today the headache persisting it is now much better. On Labetalol 200 mg BID and Procardia 30 SR with bps in 140/90 range. Patient had planned home delivery but then sent to [facility] for high blood prssures ultimately delivered via an SGA baby at 37 weeks' gestation. Overall patient states she has felt better, going well. This headache actually feels more like one of her typical migraines for which she takes imitrix. Unfortunately while imitrix actually probably fine during tube fitter recommends withstaining from for 12 hours. Vital Signs: Last 24 Hours Date/Time BP (mm/Hg) BP Position/Site MAP (mm/Hg) Heart Rate Resp Temp (C) Temp (F) SPO2% O2 Device Blood Sugar (mg/dL) Pain Score Weight (kg) Weight (lbs/ozs) 10/12/2023 20:28 152/96 SITTING/R ARM 115 63 10/12/2023 20:10 145/95 SITTING/R ARM 112 67 16 36.7 TEMPORAL 98.1 TEMPORAL 100 % Lab Results: Last 72 Hours Test Results Units Reference Range Ordered Collected Status GLUCOSE 87 mg/dL L=70 H=116 10/11/2023 00:00 10/11/2023 06:50 final BUN 12 mg/dL L=6 H=25 10/11/2023 00:00 10/11/2023 06:50 final CREATININE 0.57 mg/dL L=0.51 H=0.95 10/11/2023 00:00 10/11/2023 06:50 final SODIUM SERUM 136 mmol/L L=136 H=145 10/11/2023 00:00 10/11/2023 06:50 final POTASSIUM SERUM 4.2 mmol/L L=3.4 H=5.2 10/11/2023 00:00 10/11/2023 06:50 final CHLORIDE SERUM 103 mmol/L L=96 H=110 10/11/2023 00:00 10/11/2023 06:50 final CARBON DIOXIDE (CO2) 25 mmol/L L=22 H=34 10/11/2023 00:00 10/11/2023 06:50 final ANION GAP 7.7 mmol/L 10/11/2023 00:00 10/11/2023 06:50 final CALCIUM SERUM 8.5 mg/dL L=8.2 H=10.2 10/11/2023 00:00 10/11/2023 06:50 final BILIRUBIN TOTAL 0.2 mg/dL L=0.0 H=1.3 10/11/2023 00:00 10/11/2023 06:50 final ALK. PHOS. 126 H U/L L=46 H=116 10/11/2023 00:00 10/11/2023 06:50 final SGOT (AST) 58 H U/L L=15 H=37 10/11/2023 00:00 10/11/2023 06:50 final SGPT (ALT) 126 H U/L L=12 H=78 10/11/2023 00:00 10/11/2023 06:50 final TOTAL PROTEIN 5.7 L gm/dL L=6.0 H=8.0 10/11/2023 00:00 10/11/2023 06:50 final ALBUMIN 2.4 L gm/dL L=3.4 H=5.0 10/11/2023 00:00 10/11/2023 06:50 final AGE 38 years 10/11/2023 00:00 10/11/2023 06:50 final eGFR (non-Afr.Amer.) 120 mL/min 10/11/2023 00:00 10/11/2023 06:50 final eGFR (Afr-Greenlandic) >120 mL/min 10/11/2023 00:00 10/11/2023 06:50 final WBC 9.82 th/cmm L=5.00 H=10.00 10/10/2023 11:32 10/10/2023 14:14 final NEUT % 77.1 % L=40.0 H=80.0 10/10/2023 11:32 10/10/2023 14:14 final LYMPH % 14.8 % L=10.0 H=50.0 10/10/2023 11:32 10/10/2023 14:14 final MONO % 5.1 % L=2.0 H=12.0 10/10/2023 11:32 10/10/2023 14:14 final EOS % 2.1 % L=0.0 H=8.0 10/10/2023 11:32 10/10/2023 14:14 final BASO % 0.3 % L=0.0 H=3.0 10/10/2023 11:32 10/10/2023 14:14 final IG % 0.6 % L=0.0 H=1.1 10/10/2023 11:32 10/10/2023 14:14 final NRBC % 0 % L=0.0 H=0.0 10/10/2023 11:32 10/10/2023 14:14 final NEUT abs count 7.6 th/cmm L=1.6 H=8.4 10/10/2023 11:32 10/10/2023 14:14 final LYMPH abs count 1.5 th/cmm L=1.5 H=4.0 10/10/2023 11:32 10/10/2023 14:14 final MONO abs count 0.5 th/cmm L=0.2 H=1.0 10/10/2023 11:32 10/10/2023 14:14 final EOS abs count 0.2 th/cmm L=0.0 H=0.5 10/10/2023 11:32 10/10/2023 14:14 final BASO abs count 0 th/cmm L=0.0 H=0.2 10/10/2023 11:32 10/10/2023 14:14 final IG abs count 0.1 th/cmm L=0.0 H=0.1 10/10/2023 11:32 10/10/2023 14:14 final NRBC abs count 0 mil/cmm L=0.0 H=0.0 10/10/2023 11:32 10/10/2023 14:14 final RBC 3.5 L mil/cmm L=3.90 H=5.40 10/10/2023 11:32 10/10/2023 14:14 final HEMOGLOBIN 10.5 L gm/dL L=12.0 H=16.0 10/10/2023 11:32 10/10/2023 14:14 final HEMATOCRIT 31 L % L=37 H=47 10/10/2023 11:32 10/10/2023 14:14 final MCV 87 fL L=82 H=92 10/10/2023 11:32 10/10/2023 14:14 final MCH 30 pg L=27.0 H=31.0 10/10/2023 11:32 10/10/2023 14:14 final MCHC 34.3 % L=32.0 H=36.0 10/10/2023 11:32 10/10/2023 14:14 final RDW-SD 40.9 fL L=39.0 H=49.0 10/10/2023 11:32 10/10/2023 14:14 final PLATELET COUNT 273 th/cmm L=150 H=450 10/10/2023 11:32 10/10/2023 14:14 final GLUCOSE 117 H mg/dL L=70 H=116 10/10/2023 11:32 10/10/2023 14:14 final BUN 13 mg/dL L=6 H=25 10/10/2023 11:32 10/10/2023 14:14 final CREATININE 0.69 mg/dL L=0.51 H=0.95 10/10/2023 11:32 10/10/2023 14:14 final SODIUM SERUM 136 mmol/L L=136 H=145 10/10/2023 11:32 10/10/2023 14:14 final POTASSIUM SERUM 4.4 mmol/L L=3.4 H=5.2 10/10/2023 11:32 10/10/2023 14:14 final CHLORIDE SERUM 102 mmol/L L=96 H=110 10/10/2023 11:32 10/10/2023 14:14 final CARBON DIOXIDE (CO2) 25 mmol/L L=22 H=34 10/10/2023 11:32 10/10/2023 14:14 final ANION GAP 8.7 mmol/L 10/10/2023 11:32 10/10/2023 14:14 final CALCIUM SERUM 8.4 mg/dL L=8.2 H=10.2 10/10/2023 11:32 10/10/2023 14:14 final BILIRUBIN TOTAL 0.2 mg/dL L=0.0 H=1.3 10/10/2023 11:32 10/10/2023 14:14 final ALK. PHOS. 133 H U/L L=46 H=116 10/10/2023 11:32 10/10/2023 14:14 final SGOT (AST) 100 H U/L L=15 H=37 10/10/2023 11:32 10/10/2023 14:14 final SGPT (ALT) 167 H U/L L=12 H=78 10/10/2023 11:32 10/10/2023 14:14 final TOTAL PROTEIN 5.7 L gm/dL L=6.0 H=8.0 10/10/2023 11:32 10/10/2023 14:14 final ALBUMIN 2.4 L gm/dL L=3.4 H=5.0 10/10/2023 11:32 10/10/2023 14:14 final AGE 38 years 10/10/2023 11:32 10/10/2023 14:14 final eGFR (non-Afr.Amer.) 96 mL/min 10/10/2023 11:32 10/10/2023 14:14 final eGFR (Afr-Greenlandic) 116 mL/min 10/10/2023 11:32 10/10/2023 14:14 final PEX: CN 2-12 intact, no visual changes. CV NSR Lungs clear to A&P Abd. soft non-tender. Endorses mild epigastric pain no RUQ tenderness or pain Fundus firm appropriate, minimal lochia Ext: reflexes 1+ 1+ edema ongoing improvement. Plan: Repeat labs since here, Trial fioricet if available. 6 days this acts like ongoing gestational hypertension with migraine. Julisa Akers MD
--- OUTSIDE RECORDS SUMMARY | 2024-06-15 17:46 | XMS_ITS ---
Author Organization Unknown Address [address] [place] [phone] Phone Care Team Providers Care Trim Attacher Name Role Phone YEN NARVAEZ Attending Unavailable Immunization Immunization Date Status Additional Notes Code Code System influenza, injectable, quadrivalent, preservative free 09/26/2023 Completed 150 CVX Social History Type Status Start Date End Date Code Code Syst em Smoking History Never smoker (Never Smoked) 549999881 SNOMED CT Sex Female Hospital Discharge Instructions [...] Code System No Known Drug Allergies Active 492049129 SNOMED-CT Plan of Treatment US OB COMPLETE 10/01/2023 US OB LIMITED 06/26/2023 US OB COMPLETE 05/29/2023 US OB / TV 03/27/2023 Encounters Encounter Diagnosis Start Date Code Code Sys tem Migraine 10/12/2023 87720529 SNOMED-CT Personal Care Team Section Performer Name Performer Role Active Date Inactive Da te
--- OUTSIDE RECORDS SUMMARY | 2024-06-15 17:46 | XMS_ITS ---
Author Organization Unknown Address [address], [place] [phone] Phone Care Team Providers Care Manager Diesel Name Role Phone DARCI LOPEZ Attending Unavailable TEMO WILLETT Primary Unavailable Immunization Immunization Date Status Additional Notes Code Code System influenza, injectable, quadrivalent, preservative free 09/26/2023 Completed 150 CVX Results COMPREHENSIVE METABOLIC PANE L (CMP) - Collect Date/Time: 10/11/2023 06:50 [facility] ID: [id number] [address] [place], [place], [address] LOINC: 21501-4 Test Value Unit Reference Range Code Code System Flag GLUCOSE 87 mg/dL L=70 H=116 2345-7 LOINC BUN 12 mg/dL L=6 H=25 3094-0 LOINC CREATININE 0.57 mg/dL L=0.51 H=0.95 2160-0 LOINC SODIUM SERUM 136 mmol/L L=136 H=145 2951-2 LOINC POTASSIUM SERUM 4.2 mmol/L L=3.4 H=5.2 2823-3 LOINC CHLORIDE SERUM 103 mmol/L L=96 H=110 2075-0 LOINC CARBON DIOXIDE (CO2) 25 mmol/L L=22 H=34 2028-9 LOINC ANION GAP 7.7 mmol/L 53450-3 LOINC CALCIUM SERUM 8.5 mg/dL L=8.2 H=10.2 19821-6 LOINC BILIRUBIN TOTAL 0.2 mg/dL L=0.0 H=1.3 1975-2 LOINC ALK. PHOS. 126 U/L L=46 H=116 6768-6 LOINC H SGOT (AST) 58 U/L L=15 H=37 1920-8 LOINC H SGPT (ALT) 126 U/L L=12 H=78 1742-6 LOINC H TOTAL PROTEIN 5.7 gm/dL L=6.0 H=8.0 2885-2 LOINC L ALBUMIN 2.4 gm/dL L=3.4 H=5.0 1751-7 LOINC L AGE 38 years eGFR (non-Afr.Amer.) 120 mL/min 91585-6 LOINC eGFR (Afr-Latvian) > 120 mL/min 08736-0 LOINC CBC W/ DIFFERENTIAL* - Colle ct Date/Time: 10/10/2023 14:14 [facility] ID: [id number] [address] [place], [place], [facility] LOINC: 68228-4 Test Value Unit Reference Range Code Code System Flag WBC 9.82 th/cmm L=5.00 H=10.00 6690-2 LOINC NEUT % 77.1 % L=40.0 H=80.0 LYMPH % 14.8 % L=10.0 H=50.0 MONO % 5.1 % L=2.0 H=12.0 16657-5 LOINC EOS % 2.1 % L=0.0 H=8.0 BASO % 0.3 % L=0.0 H=3.0 IG % 0.6 % L=0.0 H=1.1 2514-8 LOINC NRBC % 0.0 % L=0.0 H=0.0 31711-8 LOINC NEUT abs count 7.6 th/cmm L=1.6 H=8.4 751-8 LOINC LYMPH abs count 1.5 th/cmm L=1.5 H=4.0 731-0 LOINC MONO abs count 0.5 th/cmm L=0.2 H=1.0 742-7 LOINC EOS abs count 0.2 th/cmm L=0.0 H=0.5 711-2 LOINC BASO abs count 0.0 th/cmm L=0.0 H=0.2 704-7 LOINC IG abs count 0.1 th/cmm L=0.0 H=0.1 22084-1 LOINC NRBC abs count 0.0 mil/cmm L=0.0 H=0.0 73259-4 LOINC RBC 3.50 mil/cmm L=3.90 H=5.40 789-8 LOINC L HEMOGLOBIN 10.5 gm/dL L=12.0 H=16.0 718-7 LOINC L HEMATOCRIT 31 % L=37 H=47 4544-3 LOINC L MCV 87 fL L=82 H=92 787-2 LOINC MCH 30.0 pg L=27.0 H=31.0 785-6 LOINC MCHC 34.3 % L=32.0 H=36.0 786-4 LOINC RDW-SD 40.9 fL L=39.0 H=49.0 788-0 LOINC PLATELET COUNT 273 th/cmm L=150 H=450 777-3 LOINC COMPREHENSIVE METABOLIC PANE L (CMP) - Collect Date/Time: 10/10/2023 14:14 [facility] ID: [id number] [address], [place], [address] LOINC: 47871-6 Test Value Unit Reference Range Code Code System Flag GLUCOSE 117 mg/dL L=70 H=116 2345-7 LOINC H BUN 13 mg/dL L=6 H=25 3094-0 LOINC CREATININE 0.69 mg/dL L=0.51 H=0.95 2160-0 LOINC SODIUM SERUM 136 mmol/L L=136 H=145 2951-2 LOINC POTASSIUM SERUM 4.4 mmol/L L=3.4 H=5.2 2823-3 LOINC CHLORIDE SERUM 102 mmol/L L=96 H=110 2075-0 LOINC CARBON DIOXIDE (CO2) 25 mmol/L L=22 H=34 2028-9 LOINC ANION GAP 8.7 mmol/L 25566-7 LOINC CALCIUM SERUM 8.4 mg/dL L=8.2 H=10.2 57477-2 LOINC BILIRUBIN TOTAL 0.2 mg/dL L=0.0 H=1.3 1975-2 LOINC ALK. PHOS. 133 U/L L=46 H=116 6768-6 LOINC H SGOT (AST) 100 U/L L=15 H=37 1920-8 LOINC H SGPT (ALT) 167 U/L L=12 H=78 1742-6 LOINC H TOTAL PROTEIN 5.7 gm/dL L=6.0 H=8.0 2885-2 LOINC L ALBUMIN 2.4 gm/dL L=3.4 H=5.0 1751-7 LOINC L AGE 38 years eGFR (non-Afr.Amer.) 96 mL/min 81864-9 LOINC eGFR (Afr-Latvian) 116 mL/min 93005-8 LOINC Social History Type Status Start Date End Date Code Code Syst em Smoking History Never smoker (Never Smoked) 369642304 SNOMED CT Sex Female Vital Signs Vital Sign Value Unit [place] Value [place] Unit Date/Time Recent/Initial? Code Code System Body Mass Index 31.32 kg/m2 10/10/2023 17:09 Initial 05167 -5 INC Systolic Blood Pressure 149 mm[Hg] 10/11/2023 07:45 Most Recent 8480- 6 LOINC Diastolic Blood Pressure 88 mm[Hg] 10/11/2023 07:45 Most Recent 8462- 4 LOINC Systolic Blood Pressure 145 mm[Hg] 10/10/2023 12:00 Initial 8480- 6 LOINC Diastolic Blood Pressure 100 mm[Hg] 10/10/2023 12:00 Initial 8462- 4 LOINC Body Surface Area 2.07 m2 10/10/2023 17:09 Initial 3140- 1 LOINC Height 170.180 0 cm 67.00 in 10/10/2023 17:09 Initial 8302- 2 LOINC O2 Saturation 98 % 2022 07:45 Most Recent 58167 -5 LOINC O2 Saturation 98 % 2022 19:55 Initial 33772 -5 LOINC Pulse 74.0 /min 10/11/2023 07:45 Most Recent 8867- 4 LOINC Pulse 66.0 /min 10/10/2023 12:00 Initial 8867- 4 LOINC Respiration 16 /min 10/11/20 07:45 Most Recent 9279- 1 LOINC Respiration 18 /min 10/10/20 12:00 Initial 9279- 1 LOINC Temperature 36.6 Elissa 97.9 F 10/11/20 07:45 Most Recent 8310- 5 [facility] Temperature 36.7 Elissa 98.1 F 10/10/20 12:00 Initial 8310- 5 [facility] Weight 90.72 kg 200.00 lbs 10/10/2023 17:09 Initial 22612 -7 [facility] Hospital Discharge Instructions Should you have any questions prior to discharge, please contact a member of your healthcare team. If you have left the hospital and have any questions, please contact your primary care physician. Reason For Referral No Data Found Allergies and Adverse Reactions Allergy Substance Reaction Severity Start Date Concern Status Co de Code System No Known Drug Allergies Active 159885979 SNOMED-CT Plan of Treatment US OB COMPLETE 10/01/2023 US OB LIMITED 06/26/2023 US OB COMPLETE 05/29/2023 US OB / TV 03/27/2023 Encounters Encounter Diagnosis Start Date Code Code Sys tem Unspecified maternal hyperte nsion, complicating the puerperium 10/10/2023 SNOMED-CT Personal Care Team Section Performer Name Performer Role Active Date Inactive Da te Discharge Summary Notes [facility] 12/15/2023 08:40 Patient Name: TICO DYE, : 1985, Age: 38 years Presented for routine bp monitoring 3 days ; was elevated with elevated LFT's. LFT's improving today, patient feels fine and will monitor bp's at home. Baby also admitted for elevated bilirubin and improved after 24 hours of bililights. Vital Signs: Last 24 Hours Date/Time BP (mm/Hg) BP Position/Site MAP (mm/Hg) Heart Rate Resp Temp (C) Temp (F) SPO2% O2 Device Blood Sugar (mg/dL) Pain Score Weight (kg) Weight (lbs/ozs) 10/11/2023 07:45 149/88 SITTING/R ARM 108 74 16 36.6 TEMPORAL SCANNING 97.9 TEMPORAL SCANNING 98 % 10/11/2023 04:00 131/87 SITTING/R ARM 102 78 15 37 ORAL 98.6 ORAL 100 % 10/10/2023 23:33 141/75 SITTING/L ARM 97 76 15 36.6 ORAL 97.9 ORAL 98 % 10/10/2023 20:25 144/79 SITTING/R ARM 101 88 16 10/10/2023 19:55 145/87 SITTING/L ARM 106 75 16 36.7 ORAL 98.1 ORAL 98 % 10/10/2023 17:09 90.72 kg 200 lbs 10/10/2023 16:00 131/90 SITTING/R ARM 104 68 16 37 TEMPORAL SCANNING 98.6 TEMPORAL SCANNING 10/10/2023 12:45 120/75 SITTING/R ARM 90 85 10/10/2023 12:00 145/100 SITTING/R ARM 115 66 18 36.7 TEMPORAL SCANNING 98.1 TEMPORAL SCANNING Vital Signs: Today Date/Time BP (mm/Hg) BP Position/Site MAP (mm/Hg) Heart Rate Resp Temp (C) Temp (F) SPO2% O2 Device Blood Sugar (mg/dL) Pain Score Height (cm) Height (in) Weight (kg) Weight (lbs/ozs) BMI Head Cir (cm) 10/11/2023 07:45 149/88 SITTING/R ARM 108 74 16 36.6 TEMPORAL SCANNING 97.9 TEMPORAL SCANNING 98 % 10/11/2023 04:00 131/87 SITTING/R ARM 102 78 15 37 ORAL 98.6 ORAL 100 % Abnormal Results: Last 24 Hours Test Results Units Reference Range Ordered Collected Status ALK. PHOS. 126 H U/L L=46 H=116 10/11/2023 00:00 10/11/2023 06:50 final SGOT (AST) 58 H U/L L=15 H=37 10/11/2023 00:00 10/11/2023 06:50 final SGPT (ALT) 126 H U/L L=12 H=78 10/11/2023 00:00 10/11/2023 06:50 final TOTAL PROTEIN 5.7 L gm/dL L=6.0 H=8.0 10/11/2023 00:00 10/11/2023 06:50 final ALBUMIN 2.4 L gm/dL L=3.4 H=5.0 10/11/2023 00:00 10/11/2023 06:50 final RBC 3.5 L mil/cmm L=3.90 H=5.40 10/10/2023 11:32 10/10/2023 14:14 final HEMOGLOBIN 10.5 L gm/dL L=12.0 H=16.0 10/10/2023 11:32 10/10/2023 14:14 final HEMATOCRIT 31 L % L=37 H=47 10/10/2023 11:32 10/10/2023 14:14 final GLUCOSE 117 H mg/dL L=70 H=116 10/10/2023 11:32 10/10/2023 14:14 final ALK. PHOS. [...] L=3.4 H=5.0 10/10/2023 11:32 10/10/2023 14:14 final Plan: Discharge home Progress Notes [facility] 10/10/2023 19:10 Patient seen approx. 330 pm and again at 630 pm. Appears well. All Demographics Patient Name Age Sex Visit Number Admission Date/Time Attending Physician Date of Service Room and Bed Emergency Contact LEYDA DYEANUVALDO Cornelius 1985 38 years Female [id number] 10/10/2023 11:31 YIFAN BEJARANO 10/10/2023 [id number] JOE DYEH - [id number] 10/10/2023 19:00 Subjective Objective Physical Exam GENERAL: Well appearing and well nourished, in no apparent distress. HEART: Regular rate and rhythm. ABDOMEN: Soft, non-tender and non-distended. Normal bowel sounds. No hepatosplenomegaly or hernias or masses noted. No guarding, rigidity or rebound tenderness. Specifically no discomfort, tenderness, swelling in epigastric or RUQ regions. MUSCULOSKELETAL: Normal gait and station. Patient noting some mild tenderness in R ankle region and behind knee. 1-2+ edema symmetrical, patient states much diminished since and delivery. NEUROLOGIC: Cranial nerves II through XII are grossly intact. Denies blurry vision, visual changes, has not had headache until mild with onset of nifedipine just took tylenol. Intake/Output: Last 24 Hours: No Intake/Output Available Vital Signs: Last 24 Hours Date/Time BP (mm/Hg) BP Position/Site MAP (mm/Hg) Heart Rate Resp Temp (C) Temp (F) SPO2% O2 Device Blood Sugar (mg/dL) Pain Score Weight (kg) Weight (lbs/ozs) 10/10/2023 17:09 90.72 kg 200 lbs 10/10/2023 16:00 131/90 SITTING/R ARM 104 68 16 37 TEMPORAL SCANNING 98.6 TEMPORAL SCANNING 10/10/2023 12:45 120/75 SITTING/R ARM 90 85 10/10/2023 12:00 145/100 SITTING/R ARM 115 66 18 36.7 TEMPORAL SCANNING 98.1 TEMPORAL SCANNING Lab Results: Last 24 Hours Test Results Units Reference Range Ordered Collected Status WBC 9.82 th/cmm L=5.00 H=10.00 10/10/2023 11:32 [...] mL/min 10/10/2023 11:32 10/10/2023 14:14 final eGFR (Afr-Latvian) 116 mL/min 10/10/2023 11:32 10/10/2023 14:14 final Assessment Problem List: No Problems Available Medications given this visit: Ordered & Completed Meds Table Ordered Medication Start Date/Time Dosage Route Frequency Status NIFEdipine CAPSULE: 10MG 10/10/2023 11:33 10 MG ORAL X1 completed NIFEdipine TABLET SR: 30MG 10/10/2023 11:35 30 MG ORAL DAILY completed ACETAMINOPHEN TABLET: 325MG 10/10/2023 11:58 650 MG ORAL PRN Q4H active IBUPROFEN TABLET: 600MG 10/10/2023 11:58 600 MG ORAL PRN Q6H active LABETALOL TABLET: 100MG 10/10/2023 19:00 200 MG ORAL BID active NIFEdipine TABLET SR: 30MG 10/11/2023 09:00 30 MG ORAL DAILY active Discharge Medications: Discharge Medications: No Discharge Medications Available Imp: Severe preeclampsia, 3 days . Admitted in part for observation in part because baby under bililights. New onset elevated LFTs. Moderate edema lower extremities improving. Plan: Repeat LFT's in am. SCD's to help mobilize edema. Will hold off on Magnesium for now since has already received, seems stable on bp rx, and serendipitous that labs even drawn today. Julisa Akers MD [facility] 10/10/2023 12:05 CNM TRIAGE NOTE Patient Name: TICO DYE, : 1985, Age: 38 years at 3 days seen today for BP check accompanied by her friend Laurel 10/10/2023 11:37 S/HPI: Vauhgn Aguilar seen today at , here with baby girl Marvyl at PP day 3 with preg complicated by preeclampsia w/ sever features. Today she reports feeling well, no MARROQUIN, no vision changes, no RUQ pain or tenderness. Has been voiding mood is good, sleeping as able. Her friend Laurel is staying with her. took her Labetalol at home at 7am. reports BP at home normal but increases to 130's over 80's just prior to taking her scheduled BID Labetalol, 200 mg. Seeing visiting nurse Anais Gonzales at today for her home visit b/c more convenient for pt, providing help today. Has BP cuff at home. they will review use O: Vital signs: BP 148/101, 155/102, HR 66 General: appears well Labs: pending A: preeclampsia w/ severe features in , now with PP hypertension despite anti-hypertensive medication, no sx of preeclampsia at this time P: Consulted with Dr. Akers, made plan to start her on Nifedipine, see how she responds before going home. Likely will keep her on OBS overnight to assess BPs on new medication regimen and review lab results. Dr. Akers will come see patient, manage her care during this admission. Reviewed plan with Vaughn Aguilar who is disappointed to need to be here again, but agrees to plan for obs admission at this time
--- OUTSIDE RECORDS SUMMARY | 2024-06-15 17:47 | XMS_ITS ---
Author Organization Unknown Address [address] [place] [phone] Phone Care Team Providers Care Technical Staff Assistant Name Role Phone RAFALDARSHANAArelis Scales Attending Unavailable TEMO BRENNON Primary Unavailable Immunization Immunization Date Status Additional Notes Code Code System influenza, injectable, quadrivalent, preservative free 09/26/2023 Completed 150 CVX Social History Type Status Start Date End Date Code Code Syst em Smoking History Never smoker (Never Smoked) 036224283 SNOMED CT Sex Female Hospital Discharge Instructions [...] Code System No Known Drug Allergies Active 371102846 SNOMED-CT Plan of Treatment US OB COMPLETE 10/01/2023 US OB LIMITED 06/26/2023 US OB COMPLETE 05/29/2023 US OB / TV 03/27/2023 Encounters Encounter Diagnosis Start Date Code Code Sys tem Severe pre-eclampsia, complicating the puerperium 09/18 SNOMED-CT Personal Care Team Section Performer Name Performer Role Active Date Inactive Da te
--- OUTSIDE RECORDS SUMMARY | 2024-06-15 17:47 | XMS_ITS ---
Author Organization Unknown Address [address] [place] [phone] Phone Care Team Providers Care Information Resources Director Name Role Phone ARA Cornelius Attending Unavailable TEMO WILLETT Primary Unavailable Immunization Immunization Date Status Additional Notes Code Code System influenza, injectable, quadrivalent, preservative free 09/26/2023 Completed 150 CVX Social History Type Status Start Date End Date Code Code Syst em Smoking History Never smoker (Never Smoked) 249803694 SNOMED CT Sex Female Hospital Discharge Instructions [...] Code System No Known Drug Allergies Active 962261695 SNOMED-CT Plan of Treatment US OB COMPLETE 10/01/2023 US OB LIMITED 06/26/2023 US OB COMPLETE 05/29/2023 US OB / TV 03/27/2023 Encounters Encounter Diagnosis Start Date Code Code Sys tem Inflammatory disorder of breast 10/29/2023 836001319 SNOMED-CT Personal Care Team Section Performer Name Performer Role Active Date Inactive Da te
--- OUTSIDE RECORDS SUMMARY | 2024-06-15 17:47 | XMS_ITS ---
Author Organization Unknown Address [address] [place] [phone] Phone Care Team Providers Care Front End Application Developer Name Role Phone DARCI LOPEZ Attending Unavailable TEMOMYRON WILLETT Primary Unavailable Immunization Immunization Date Status Additional Notes Code Code System influenza, injectable, quadrivalent, preservative free 09/26/2023 Completed 150 CVX Social History Type Status Start Date End Date Code Code Syst em Smoking History Never smoker (Never Smoked) 681551814 SNOMED CT Sex Female Hospital Discharge Instructions [...] Code System No Known Drug Allergies Active 815570732 SNOMED-CT Plan of Treatment US OB COMPLETE 10/01/2023 US OB LIMITED 06/26/2023 US OB COMPLETE 05/29/2023 US OB / TV 03/27/2023 Encounters Encounter Diagnosis Start Date Code Code Sys tem care 10/20/2023 241325626 SNOMED-CT Personal Care Team Section Performer Name Performer Role Active Date Inactive Da te
--- OUTSIDE RECORDS SUMMARY | 2024-06-15 17:48 | XMS_ITS | Encounter Summary ---
Author Organization [facility] Address [address] [place] [address] Care Team Providers Care Front Sight Attacher Name Role Phone ArnoldDana gregory Macario SEPULVEDA Primary Care Provider [phone] Reason for Visit * Reason Comments Follow-up Skin lesions. Spot o f concern under right eye Encounter Details Date Type Department Care Team (Late st Contact Info) Description 12/23/2023 10:30 EST Office Visit [facility] Dermatology 5th [address] [phone] Rashaun Payne MD [address] [facility], [address] [place] [address] Actinic keratosis (Primary Dx); Multiple nevi Social History Tobacco Use Types Packs/Day Years Used Date Smoking Tobacco: Never Smokeless Tobacco: Never Tobacco Cessation:Counseling Given: Not Answered Alcohol Use Standard Drinks/Week Comments Yes 0 (1 standard drink = 0.6 oz pur e alcohol) 0-4 drinks per week Sex and Gender Information Value Date Recorded Sex Assigned at Not on file Gender Identity Not on file Sexual Orientation Not on file documented as of this encounter Progress Notes * Rashaun Payne MD - 12/23/2023 1030 EST Derm Hx Hx melanoma 0.2mm R calf WLE 02/2022 Nevi Janusz Ks Last seen 05/2023 S Follow-up (Skin lesions. Spot of concern under right eye) O Examined face neck trunk both arms and legs R infraorbital, medial gritty keratosis c/w AK WHS R calf. No palp R ing nodes Scattered benign appearing nevi A/P # AK R infraorbital. Discussed cryotherapy vs topical 5fu vs monitoring. Patient elects latter and knows approx 1% risk of SCC. # nevi, reassure Rtc yr/prn Self/partner exams Rashaun Payne MD documented in this encounter Plan of Treatment Not on file documented as of this encounter Visit Diagnoses Diagnosis Actinic keratosis- Primary Multiple nevi Benign neoplasm of skin, site unspecified documented in this encounter Historical Medications * This list may reflect changes made after this encounter. Medication Sig Dispensed Refills Start Date End Date pyridoxine, vitamin B6, (VITAMIN B6) 50 mg tablet Take 1 Tablet by mouth daily. vit/iron fum/folic ac ( 1+1 ORAL) Take by mouth. added in this encounter Care Teams Front Sight Attacher Relationship Specialty Start Date End Date Dana Barrett APRN [address] [place] [address] PCP - General Family Medicine - Primary Care 01/21/22 documented as of this encounter
--- OUTSIDE RECORDS SUMMARY | 2024-06-15 17:48 | XMS_ITS | Encounter Summary ---
Author Organization Health system Address [address] [place] [address] Care Team Providers Care Supervisor Volunteer Services Name Role Phone Dana Barrett APRN Primary Care Provider [phone] Reason for Visit * Reason Onset Date Comments Appointment Related 01/14/2024 Encounter Details Date Type Department Care Team (Late st Contact Info) Description 01/14/2024 Telephone [facility] Dermatology 3rd Floor [address] [phone] Rashaun Payne MD [address] [facility], [address] [place] [address] Appointment Related Social History Tobacco Use Types Packs/Day Years Used Date Smoking Tobacco: Never Smokeless Tobacco: Never Alcohol Use Standard Drinks/Week Comments Yes 0 (1 standard drink = 0.6 oz pur e alcohol) 0-4 drinks per week Sex and Gender Information Value Date Recorded Sex Assigned at Not on file Gender Identity Not on file Sexual Orientation Not on file documented as of this encounter Miscellaneous Notes * Telephone Encounter - Marisela Shrestha - 01/15/2024 1033 EST Patient returned call and is now scheduled for 01/30/24 @9:45AM with Elmer * Telephone Encounter - Beverly Landis MA - 01/14/2024 1348 EST Left message for patient to call our office back to get scheduled for the spot of concern on their chin. They can have the blocked spot on February 22 if they are available. If not, there are appointments on March 09, , or that they can have. BEVERLY LANDIS MA 01/14/2024 13:49 * Telephone Encounter - Kaur Sandoval - 01/14/2024 0832 EST Patient called re: spot on chin and stated that there was a swollen gland next to it, and this patient has a history of melanoma. I found a blocked appt. On 02/23/24 at 9:15 am, but could not obtain permission to use it. Please advise. documented in this encounter Plan of Treatment Not on file documented as of this encounter Visit Diagnoses Not on filedocumented in this encounter Care Teams Supervisor Volunteer Services Relationship Specialty Start Date End Date Dana Barrett APRN [address] [place] [phone] PCP - General Family Medicine - Primary Care 01/21/22 documented as of this encounter
--- OUTSIDE RECORDS SUMMARY | 2024-06-15 17:48 | XMS_ITS | Clinical Summary ---
Author Organization [facility] Address [address] [place] [address] Care Team Providers Care Flame Brazing Machine Operator Name Role Phone Dana Barrett APRN Primary Care Provider [phone] Allergies No known active allergies Medications Medication Sig Dispensed Refills Start Date End Date Status docosahexaenoic acid/epa (FISH OIL ORAL) Take by mouth. Active acetylcysteine (NAC ORAL) Take by mouth. Active cholecalciferol, vitamin D3, 100 mcg (4,000 unit) tablet Take by mouth. A ctive TURMERIC ORAL Take by mouth. Active mupirocin (BACTROBAN) 2 % ointmentIndications: Folliculitis Apply topically to affected area 3 times daily. 22 g 2 02/04/2022 Active Additional Information Patient not taking.Reported on 12/23/2023 SUMAtriptan (IMITREX) 50 mg tablet Take 1 Tablet by mouth as needed for Migraine. As needed for migraines Active vit/iron fum/folic ac ( 1+1 ORAL) Take by mouth. A ctive pyridoxine, vitamin B6, (VITAMIN B6) 50 mg tablet Take 1 Tablet by mouth daily. Active clindamycin (CLEOCIN T) 1 % external solution Apply topically to affected area daily. Apply to chin twice daily. use thin film on affected area 60 mL 11 01/30/2024 Active Active Problems Patient Care Coordination No te Formatting of this note migh t be different from the original. 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 Cancer Staging:Clinical stage from 01/21/2022:Stage IA(cT1a, cN0, cM0) - Signed by Harriet Rice PA-C on 02/22/2022 Surgical History Surgery Date Site/Laterality Comments CLAVICLE SURGERY fracture Medical History Medical History Date Comments Precocious puberty Iritis autoimmune Malignant melanoma of leg, right (HCC-CMS) 022 Family History Medical History Relation Comments Crohn's Disease Father Heart Disease Father No Known Mother Ulcerative Colitis Paternal Aunt 1 Cancer Paternal Aunt 2 throat Stroke Paternal Aunt 2 Heart Attack Paternal Grandfather Brain Cancer Paternal Grandmother Relation Status Comments Father Mother Paternal Aunt 1 Alive Paternal Aunt 2 Alive Paternal Grandfather Paternal Grandmother Social History Tobacco Use Types Packs/Day Years Used Date Smoking Tobacco: Never Smokeless Tobacco: Never Tobacco Cessation:Counseling Given: Not Answered Alcohol Use Standard Drinks/Week Comments Yes 0 (1 standard drink = 0.6 oz pur e alcohol) 0-4 drinks per week Sex and Gender Information Value Date Recorded Sex Assigned at Not on file Gender Identity Not on file Sexual Orientation Not on file Obstetrics History Para Term AB IAB SAB Ectopic Multiple Livin g Live Births 0 0 0 0 0 0 0 0 0 0 0 Last Filed Vital Signs Vital Sign Reading Time Taken Comments Blood Pressure 108/64 01/21/2022 0942 EST Pulse - - Temperature - - Respiratory Rate - - Oxygen Saturation - - Inhaled Oxygen Concentration - - Weight 71.7 kg (158 lb) 01/21/2022 0942 EST Height - - Body Mass Index - - Plan of Treatment Health Maintenance Due Date Last Done Comments Hepatitis C Screen 1985 Hepatitis B Vaccine (1 of 3 - 19+ 3-dose series) 04/23 COVID-19 Vaccine ( season) 2023 Care Teams Flame Brazing Machine Operator Relationship Specialty Start Date End Date Dana Barrett APRN [address] [facility] [place] [address] PCP - General Family Medicine - Primary Care 01/21/22
--- OUTSIDE RECORDS SUMMARY | 2024-06-15 17:48 | XMS_ITS | Encounter Summary ---
Author Organization [facility] Address [address] [place] [address] Care Team Providers Care Jail Keeper Name Role Phone ArnoldDana Macario SEPULVEDA Primary Care Provider [phone] Reason for Visit * Reason Comments Surgical Excision malignant melanoma r ight calf Encounter Details Date Type Department Care Team (Late st Contact Info) Description 02/22/2022 9:[address] [facility] Dermatology 5th Floor [address] [id number] Harriet Rice PA-C [address] [place] [address], [address] [place] [address] Malignant melanoma of leg, right (HCC-CMS) (HCC) (HCC-CMS) (Primary Dx) Social History Tobacco Use Types Packs/Day Years Used Date Smoking Tobacco: Never Smokeless Tobacco: Never Alcohol Use Standard Drinks/Week Comments Yes 0 (1 standard drink = 0.6 oz pur e alcohol) 0-4 drinks per week Sex and Gender Information Value Date Recorded Sex Assigned at Not on file Gender Identity Not on file Sexual Orientation Not on file documented as of this encounter Patient Instructions * Patient Instructions* Harriet Rice PA-C - 02/22/2022 9:00 EDT WOUND CARE INSTRUCTIONS FOR SKIN SURGERY WOUND CARE: The white pressure bandage should remain in place for 24-48 hours and then this can be removed. Tansteri strips are covering the wound to prevent suture material from catching on clothing, and thesecan get wet. You can leave the steri strips in place until suture removal, and additional tapes have been given if needed. SUTURE REMOVAL: There is a blue, non-absorbable suture under the surface of skin -- this should be removed in 2 weeks. This can be done at our clinic and an appointment with the nursing team will be given. If you are removing it yourself with provided suture removal kit, then follow these instructions: - Using scissor, cut blue suture thread at center of wound. - Use tweezer to pull knot on end gently away from wound and the suture should glide out. Repeat onother side. - Following suture removal, no further bandage is needed if incision is intact. If there is an openarea, then vaseline and a small bandage can be used to cover, or steri strips can be placed over incision if you would like. DISCOMFORT: Expect some discomfort. Extra-Strength Tylenol, taken as directed by the collar stitcher, will help relieve pain. If Tylenol does not provide relief, you may alternate with ibuprofen. If thepain is severe please call the office. BLEEDING: You may notice some blood on the edges of the dressing the first day - this is NORMAL. Ifthe bleeding soaks through the dressing, remove the dressing, and apply firm, steady pressure with a moist clean wash cloth for fifteen minutes. If the bleeding stops, place another bandage on wound.If not, call our office at . ACTIVITY: Relax and limit your physical activity for the first 48 hours after surgery. Your provider may ask you to limit activity for a longer period of time. If the surgery was on the face or scalp, keep your head elevated. APPEARANCE: There may be swelling and bruising around the wound. Some redness is normal, but the wound should not be red, hot and tender. If the wound becomes increasingly inflamed, warm, or drains pus, please call our office. With surgery on the nose, eyelids, forehead, or scalp your eyes may become swollen and bruised. Please CALL OUR OFFICE IF YOU EXPERIENCE: or ?? Increasing redness ?? Wound is warm or hot to touch ?? Increasing pain ?? Drainage with a foul odor ?? Rapid swelling of the wound ?? Fever or chills documented in this encounter Ordered Prescriptions Prescription Sig Dispensed Refills Start Date End Da te cephalexin (KEFLEX) 500 mg capsule Take 1 capsule by mouth 3 times daily for 3 days. 9 capsule 02/22/2022 02/25/2022 documented in this encounter Progress Notes * Harriet Rice PA-C - 02/22/2022 0900 EDT Images from the original note were not included. EXCISION EVALUATION NOTE Chief Complaint Patient presents with ??? Surgical Excision malignant melanoma right calf Subjective: Vaughn Kurtz is a 36 y.o. year old female who presents for evaluation and treatment recommendations for a malignant melanoma. The patient was referred to us by Dr. Batres. She notes that this lesionhas been present for an unknown duration of time and reports no symptoms. Risk factors: Pacemaker/ICD: none Anticoagulants: none Total joint replacements/valves: none Allergies: Patient has No Known Allergies. Immunosuppression: none Smoking status: reports that she has never smoked. She has never used smokeless tobacco. For full Medical, Surgical, Family, and Social histories as well as Review of Systems, Medications and Allergies please see those sections of this encounter in the electronic chart which I have personally reviewed. Objective: The following data was reviewed: external note(s) from referring provider, photograph and pathologyreport. Examination of the affected area revealed a 0.9 cm x 0.8 cm hemorrhagic crusted and pink, biopsy scar located on the right calf. Pathology: Final Diagnosis A. SKIN OF CALF, RIGHT, SHAVE BIOPSY: - Malignant melanoma, focally invasive (superficial spreading type). See comment and synoptic. - Melanoma thickness: 0.2 mm. - Ulceration: Not identified. - Melanoma does not extend to edges of shave biopsy specimen in the plane of the sections examined. ?? Diagnosis Comment The biopsy consists primarily of melanoma in situ. There is a small, eccentric focus of superficialdermal invasion. The melanoma is encompassed by the shave biopsy specimen Assessment: Malignant melanoma of the right calf Plan: The diagnosis, etiology, prognosis and treatment options were reviewed. Due to tumor type, size andlocation, I feel that elliptical excision with layered closure is indicated. The risks of excision and repair, including but not limited to, bleeding, scarring, infection, recurrence, injury to functionally or cosmetically important nerve structures and an unsatisfactory cosmetic result were reviewed. Ms. Kurtz understands that following the repair, many months may elapse before a decision can be made about the final cosmetic result, and that, in some cases a revision may be necessary to optimize the outcome. The patient has no absolute contraindications to outpatient surgery under local anesthesia and understands the importance of following our instructions regarding wound care and limiting activity following surgery. The patient was given an opportunity to ask questions, and I believe that all of her questions were answered satisfactorily. She will be scheduled to undergo surgery today. Note: None Harriet Rice PA-C LINEAR EXCISION AND LAYERED CLOSURE PROCEDURE NOTE PATIENT INFORMATION: Vaughn Kurtz [id number] 1985 DATE OF PROCEDURE: 02/22/2022 SURGEON: Harriet Rice PA-C BANANA LOADER: Kacie Heredia MA PREOPERATIVE DIAGNOSIS: Malignant melanoma LOCATION: right calf LESION SIZE: 0.9 cm x 0.8 cm MARGINS PER SIDE: 1.0 cm TOTAL EXCISION DIAMETER: 3.9 cm x 3.8 cm INDICATIONS: The indication, risks, benefits and alternatives to this procedure were discussed in detail with the patient and all questions were answered. The patient had no contraindications to surgery with local anesthesia. Informed consent was obtained in writing. PROCEDURE: Patient position: prone Anesthesia: 1% lidocaine with epinephrine 1:100,000 local infiltration Prep: Povodine Iodine The patient was brought to the operative suite. The lesion was identified, prepped and draped in the usual sterile fashion. Following complete local anesthesia, the skin was incised in a fusiform fashion to the level of the subcutis with a number 15 surgical blade. The wound was undermined in all di rections with care to avoid functionally important nerves and vessels. Hemostasis was achieved withspot electrocoagulation. The wound edges were approximated in a layered fashion with 3.0 and 4.0 PDS (polydioxanone) buried interrupted sutures at the level of the dermis and subcutis and running 4.0 Prolene (polypropylene) suture at the level of the epidermis. The final wound length was 7.2 centimeters. The wound edges were cleansed with peroxide and dressed with petrolatum, a non-adherent gauzepad and Hypafix?? tape. Verbal and written wound care instructions were given. The patient tolerated the procedure well and left the operating suite in good condition. The surgical specimen was submitted to pathology for histologic evaluation. POSTOPERATIVE DIAGNOSIS: Malignant melanoma FINAL PROCEDURE: Excision and layered linear repair BLOOD LOSS: minimal OPERATIVE TIME: 45 minutes COMPLICATIONS: none NOTE: None NOTE: Keflex 500 mg TID x 3 days. Harriet Rice PA-C documented in this encounter Miscellaneous Notes * Result Encounter Note - Harriet Rice PA-C - 02/22/2022 0900 EDT Letter sent with results. Lesion fully removed and no further treatment needed. Please make sure she has f/u within 3-4 mths FBSE (hx MM). Harriet Rice PA-C documented in this encounter Plan of Treatment Not on file documented as of this encounter Procedures Procedure Name Priority Date/Time Associated Diagnosis Comments SURGICAL PATHOLOGY Routine 02/22/2022 9:42 EDT Malignant melanoma of leg, right (HCC-CMS) (HCC) (HCC-CMS) documented in this encounter Results * SURGICAL PATHOLOGY (02/22/2022 9:42 EDT) Note to Patient The following pathology results have been interpreted by your pathologist and may be available to you before your health provider has had the opportunity to review them. Please allow time for your provider to receive these results and explore management options, if applicable. 02/26/2022 15:57 EDT [facility] Final Diagnosis A. SKIN OF CALF, RIGHT, EXCISION: - Epidermal reparative change and dermal scar. See comment. - No residual melanoma identified. - No macroscopic satellite nodules identified. - No intransit metastasis/satell itosis identified. 02/26/2022 15:57 EDT [facility] Diagnosis Comment The patient's prior material (ROBINS [id number]) has been reviewed in conjunction with the current specimen. No residual melanoma is noted within the current excision specimen. Staging remains an AJCC: pT2a pNX based upon a Breslow thickness of 0.2 mm and lack of ulceration. 02/26/2022 15:57 [facility] Attestation By the signature below, the attending physician certifies that they have 1) personally conducted a gross and/or microscopic examination of the described specimen(s), and/or personally interpreted the results of laboratory testing of the described specimen(s), and 2) personally rendered or confirmed the above diagnosis. 02/26/2022 15:57 [facility] at [id number] Clinical History MM, [id number]; clinical diagnosis code: C43.71 02/26/2022 15:57 [facility] Gross Description A. Received in formalin labelled with proper patient identification (initials P, J) and right calf is a nonoriented elliptical skin, 5.3 x 2.0 cm which is excised to a depth of 1.8 cm. The central skin surface shows a 1.2 cm crust. The surrounding skin is pale piedra. The margin is inked. Serially sectioned and entirely submitted as follows: BLOCK SANCHEZ A1- tips, reverse en face [id number] 15 consecutive central sections VALDEMAR ALMONTE(ASCP) 02/25/2022 12:30 02/26/2022 15:57 [facility] Performing Lab [facility] 02/26/2022 15:57 T [facility] Scanned Images 02/26/2022 15:57 [facility] Tissue TISSUE SPECIMEN FROM SKIN / Unknown Collection, Other / Unknown 02/22/2022 9:42 EDT 02/22/2022 13:44 EDT Harriet Rice PA-C PATHOLOGY PATSY KIMBROUGH [facility] [address] [place] [address] documented in this encounter Visit Diagnoses Diagnosis Malignant melanoma of leg, right (HCC-CMS)- Primary documented in this encounter Historical Medications * This list may reflect changes made after this encounter. Medication Sig Dispensed Refills Start Date End Date SUMAtriptan (IMITREX) 50 mg tablet Take 1 Tablet by mouth as needed for Migraine. As needed for migraines added in this encounter Care Teams Jail Keeper Relationship Specialty Start Date End Date Dana Barrett APRN [address] [place] [id number] PCP - General Family Medicine - Primary Care 01/21/22 documented as of this encounter
--- OUTSIDE RECORDS SUMMARY | 2024-06-15 17:48 | XMS_ITS | Encounter Summary ---
Author Organization [facility] Address [address] [place] [id number] Care Team Providers Care Java Xml Developer Name Role Phone Landon Moore MD Primary Care Provider [phone] Dana Barrett APRN Primary Care Provider [phone] Encounter Details Date Type Department Care Team (Late st Contact Info) Description 07/12/2020 Lab Requisition [facility] Pathology & Laboratory Medicine - [address] [id number] Outr Resulting Lab, Provider Social History Tobacco Use Types Packs/Day Years Used Date Smoking Tobacco: Never Assessed Sex and Gender Information Value Date Recorded Sex Assigned at Not on file Gender Identity Not on file Sexual Orientation Not on file documented as of this encounter Plan of Treatment Not on file documented as of this encounter Procedures Procedure Name Priority Date/Time Associated Diagnosis Comments GIARDIA AND CRYPTOSPORIDIUM ANTIGENS Routine 07/12/2020 11:26 EDT documented in this encounter Results * GIARDIA AND CRYPTOSPORIDIUM ANTIGENS (07/12/2020 11:26 EDT) Giardia and Cryptosporidium Cryptosporidium Antigen Neg and Giardia Antigen Neg Cryptosporidium Antigen Neg and Giardia Antigen Neg 0 11:15 EDT [facility] Feces SPECIMEN FROM RECTUM / Unknown 07/12/2020 11:26 EDT 07/12/2020 22:46 EDT Provider Outr Resulting Lab MICROBIOLOGY - GENERAL ORDERABLES [facility] [address] [place] [address] documented in this encounter Visit Diagnoses Not on filedocumented in this encounter Care Teams Java Xml Developer Relationship Specialty Start Date End Date Landon Moore MD [address] [address] PCP - General 09/24/15 01/20/22 Dana Barrett APRN [address] [place] [phone] PCP - General Family Medicine - Primary Care 01/21/22 documented as of this encounter
--- OUTSIDE RECORDS SUMMARY | 2024-06-15 17:48 | XMS_ITS | Encounter Summary ---
Author Organization [facility] Address [address] [place] [address] Care Team Providers Care Chemical Lab Technician Name Role Phone ArnoldDana gregory Macario SEPULVEDA Primary Care Provider [phone] Reason for Visit * Reason Comments New Patient Visit Spots on legs, chest and back Encounter Details Date Type Department Care Team (Late st Contact Info) Description 01/21/2022 8:50 EST Office Visit [facility] Dermatology 5th Floor [facility] [address] [place] [address] Zechariah Batres MD [address] [address] Multiple benign melanocytic nevi of upper and lower extremities and trunk (Primary Dx); Lentigines; Sun-damaged skin; Callus of foot; Verruca vulgaris of lower extremity; Neoplasm of uncertain behavior of skin Social History Tobacco Use Types Packs/Day Years [...] this encounter Patient Instructions * Patient Instructions* Zechariah Batres MD - 01/21/2022 8:50 EST 20% urea cream or AmLactin lotion for the thick skin / callus on the toe WOUND CARE INSTRUCTIONS FOR SKIN BIOPSY The DRESSING/BANDAID should remain in place for 24 hours. You may shower or bathe after 24 hours; remove the bandage and replace it after the shower. DISCOMFORT: Acetaminophen or Ibuprofen (or similar NSAIDs), taken as directed by the milk runner or your physician, usually relieves any pain you may have. BLEEDING: You may notice some blood on the edges of the dressing the first day and this is NORMAL. If the bleeding soaks through the dressing, remove the dressing, and apply firm, steady pressure with a moist clean wash cloth for 15 minutes (no peeking!). If the bleeding stops, redress the wound. If not, please call our office at . ACTIVITY: You may resume normal activity in 1 day unless instructed otherwise. WOUND CARE: ?? Wash hands with soap and water before changing the dressing. ?? Change the dressing daily and when it becomes wet. Gently clean the wound daily with mild soap and water. You may gently loosen any crusts with a cotton swab. The wound may be slightly tender and may bleed a small amount. A small amount of discharge is normal. Apply a thin layer of sterile petroleum jelly (Vaseline) over the wound followed by a Band-Aid or non-stick dressing. It is important to keep the wound clean and moist with Vaseline to promote wound healing (letting the wound scab or dry-out typically impedes wound healing). CONTACT THE OFFICE IF YOU EXPERIENCE: ?? spreading redness ?? warmth to touch ?? increasing pain ?? drainage with a foul odor ?? rapid swelling of the wound ?? fever or chills You should receive a phone call or a letter with biopsy results within 10-14 days. If you have not heard anything after 2 weeks, please contact our office. If you have questions or concerns, please call our office at or . Follow these tips to protect your skin from the sun's damaging ultraviolet rays and reduce your risk of skin cancer: Seek shade when appropriate, remembering that the sun???s rays are strongest between 10 a.m. and 2 p.m. If your shadow is shorter than you are, seek shade. Wear protective clothing, such as a lightweight long-sleeved shirt, pants, a wide-brimmed hat and sunglasses, when possible. Generously apply a broad-spectrum, water-resistant sunscreen with an SPF of 30 or higher. Broad-spectrum sunscreen provides protection from both UVA and UVB rays. ??? Use sunscreen whenever you are going to be outside, even on cloudy days. ??? Apply enough sunscreen to cover all exposed skin. Most adults need about 1 ounce -- or enough to fill a shot glass -- to fully cover their body. ??? Don???t forget to apply to the tops of your feet, your neck, your ears and the top of your head. ??? If you are concerned about potential adverse effects of sunscreens, consider mineral-based agents that contain zinc or titanium oxide (these are generally a bit harder to fully rub in, but are typically quite effective and well tolerated) When outdoors, reapply sunscreen every two hours, or after swimming or sweating. Use extra caution near water, snow and sand, as they reflect the damaging rays of the sun, which can increase your chance of sunburn. Avoid tanning beds. Ultraviolet light from tanning beds can cause skin cancer and premature skin aging. Consider using a self-tanning product if you want to look piedra, but continue to take good sun protective measures (self tanners do not provide adequate protection from the sun's rays) -------- Perform regular skin self-exams to detect skin cancer early ??? Seek evaluation for any new or suspicious spots on your skin, or anything changing, itching or bleeding. ??? Remember the ABCDEs of melanoma: A is for Asymmetry One half of the spot is unlike the other half. B is for Border The spot has an irregular, scalloped, or poorly defined border. C is for Color The spot has varying colors from one area to the next, such as shades of piedra, brown or black, or areas of white, red, or blue. D is for Diameter Melanomas are usually greater than 6 millimeters (about the size of a pencil eraser) but they can be smaller. E is for Evolving The spot looks different from the rest of your moles, or is changing in size, shape, or color -------- For more information and helpful tips for many skin conditions: Visit https://www.aad.org/public documented in this encounter Progress Notes * Zechariah Batres MD - 01/21/2022 0885 EST Chief Complaint Patient presents with ??? New Patient Visit Spots on legs, chest and back Dermatologic History No specialty comments available. Subjective She is here today for a skin check with the following concerns: 1) Spot on the left thigh that is sometimes scabbed. 2) Spot on the right calf that is changing 3) Occasional dry spot on the chest and back. 4) Possible wart on the right toe Objective Exam of the head, neck, trunk, and extremities was notable for: -Numerous piedra and brown macules and soft papules including an evenly pigmented brown papule on the left lateral thigh -Irregular pink-brown papule right calf -Numerous piedra macules dorsal forearms, shoulders, v-neck chest -Callus and small verrucous papule on the right toe Assessment and Plan 1. Multiple benign melanocytic nevi of upper and lower extremities and trunk 2. Lentigines 3. Sun-damaged skin - Educated patient on the importance of sun avoidance, sun protection and regular self-skin examinations (watching for any new or changing skin lesions; in particular bleeding, ulceration, pain, rapid changes in color/shape/size) 4. Callus of foot, corn, and small plantar wart There is a small wart nearby; also small corn within the callus -Cryotherapy to the verruca -Trial urea cream for the callus; reducing friction/pressure advised Cryotherapy procedure note Risks of the procedure were discussed, including pain, blistering, possible infection, resultant hypo-or hyperpigmentation and possibility of incomplete resolution. Alternative therapies considered and reviewed as appropriate. Verbal consent was obtained prior to the procedure. The patient was educated on wound care, and instructed to return for evaluation if any lesion fails to resolve with treatment. 1 lesion(s) treated today at the sites noted above 5. Neoplasm of uncertain behavior of skin Right calf Nevus r/o atypia Procedure note: Shave Biopsy The indication, risks (including infection, bleeding, pain, and scarring), benefits and alternatives to the procedure were discussed in detail with the patient and all questions were answered. Informed consent was obtained. Specimen A Indication: Diagnosis Site: right calf Anesthesia: 1% lido with epi Prep: Alcohol Swab The lesion was prepped as above and locally anesthetized. The procedure was performed using a Dermablade??. Hemostasis was achieved with pressure and aluminum chloride. A sterile dressing was appliedover Petrolatum ointment. The patient was educated on wound care instructions. The specimen was confirmed in the specimen bottle prior to submission to pathology for histological evaluation. Zechariah Batres MD 01/21/22 9:05 documented in this encounter Miscellaneous Notes * Result Encounter Note - Zechariah Batres MD - 01/21/2022 0850 EST Called patient to discuss results showing melanoma that will require WLE with our derm surgeons. Noanswer at the number provided. Will continue attempts to reach her * Result Encounter Note - Zechariah Batres MD - 01/21/2022 0850 EST Spoke with the patient and reviewed results showing melanoma. We reviewed important details regarding treatment, prognosis, and next steps. Please schedule for WLE with the next available surgeon ARMINDA. Please also schedule her a follow-up visit with me in the next few weeks for a repeat skin check - there was at least one other mole that we may want to biopsy in light of the new diagnosis of melanoma. Thanks * Result Encounter Note - Joanie Singleton MA - 01/21/2022 0850 EST Patient scheduled 02/22/22 with Harriet SINGLETON MA 01/28/2022 12:20 documented in this encounter Plan of Treatment Not on file documented as of this encounter Procedures Procedure Name Priority Date/Time Associated Diagnosis Comments SURGICAL PATHOLOGY Routine 01/21/2022 9:05 EST Neoplasm of uncertain behavior of skin documented in this encounter Results * SURGICAL PATHOLOGY (01/21/2022 9:05 [facility]) Note to Patient The following pathology results have been interpreted by your pathologist and may be available to you before your health provider has had the opportunity to review them. Please allow time for your provider to receive these results and explore management options, if applicable. 01/23/2022 13:30 [facility] Final Diagnosis A. SKIN OF CALF, RIGHT, SHAVE BIOPSY: - Malignant melanoma, focally invasive (superficial spreading type). See comment and synoptic. - Melanoma thickness: 0.2 mm. - Ulceration: Not identified. - Melanoma does not extend to edges of shave biopsy specimen in the plane of the sections examined. 01/23/2022 13:30 [facility] Diagnosis Comment The biopsy consists primarily of melanoma in situ. There is a small, eccentric focus of superficial dermal invasion. The melanoma is encompassed by the shave biopsy specimen. Brim Welt Sewing Machine Operator slides of this case were reviewed at the intradepartmental consultation conference. 01/23/2022 13:30 [facility] Attestation By the signature below, the attending physician certifies that they have 1) personally conducted a gross and/or microscopic examination of the described specimen(s), and/or personally interpreted the results of laboratory testing of the described specimen(s), and 2) personally rendered or confirmed the above diagnosis. 01/23/2022 13:30 [facility] at 1330 Synoptic MELANOMA OF THE SKIN: Biopsy MELANOMA OF THE SKIN: BIOPSY - A SPECIMEN ?? Procedure: ?Biopsy, shave ?? Specimen Laterality: ?Right TUMOR ?? Tumor Site: ?Skin of lower limb and hip: calf ?? Histologic Type: ?Superficial spreading melanoma ?? Maximum Tumor (Breslow) Thickness in Millimeters: ?0.2 Millimeters (mm) ?? Tumor Extent: ? Macroscopic Satellite Nodule(s): ?Not identified ? Ulceration: ?Not identified ? Anatomic (Fidel) Level: ?II (melanoma present in but does not fill and expand papillary dermis) ?? Accessory Findings: ? Mitotic Rate: ?None identified ? Microsatellite(s): ?Not identified ? Lymphovascular Invasion: ?Not identified ? Neurotropism: ?Not identified ? Tumor-Infiltrating Lymphocytes: ?Not identified ? Tumor Regression: ?Not identified ?? MARGINS: ? Peripheral Margins: ?Uninvolved by invasive melanoma ? Distance of Invasive Melanoma from Closest Peripheral Margin in Millimeters (mm): ?1.25 Millimeters (mm) ? Status of Melanoma In Situ Involvement at Peripheral Margins: ?Uninvolved by melanoma in situ ? Distance of Melanoma in situ from Closest Peripheral Margin in Millimeters (mm): ?0.75 Millimeters (mm) ? Deep Margin: ?Uninvolved by invasive melanoma ? Distance of Invasive Melanoma from Deep Margin in Millimeters (mm): ?0.5 Millimeters (mm) ?? PATHOLOGIC STAGE CLASSIFICATION (pTNM, AJCC 8th Edition): ? Primary Tumor (pT): ?pT1a 01/23/2022 13:30 [facility] Microscopic Description Sections consist of a shave biopsy skin to the superficial reticular dermis. There is a broad predominantly intraepidermal melanocytic proliferation. The proliferation consists of nests and individual cells. The nests are variable in size and shape. Individual melanocytes predominate in many areas and show developed pagetoid migration into the upper levels of the epidermis. The melanocytes are enlarged and have a moderate amount wispy cytoplasm. There is nuclear atypia. Rare nests of similar melanocytes are noted within the papillary dermis. No dermal mitotic figures are noted. There is sparse inflammation. 01/23/2022 13:30 [facility] Clinical History Brown papule with irregular edge; R/O dysplastic nevus; clinical diagnosis code: D48.5 01/23/2022 13:30 [facility] Gross Description A. Received in formalin labelled with proper patient identification (initials P, J) and right calf is a shave biopsy of piedra skin (1.4 x 1.2 x 0.1 cm). There is a brown mottled irregular shaped macule (1.1 x 1.0 cm) located on the skin surface. The margin is inked blue. The specimen is serially sectioned and entirely submitted in A1 and A2. VALDEMAR BROWN(ASCP) 01/21/2022 11:51 01/23/2022 13:30 EST [facility] Performing Lab [facility] 01/23/2022 13:30 EST [facility] Scanned Images 01/23/2022 13:30 [facility] Tissue TISSUE SPECIMEN FROM SKIN / Unknown Collection, Other / Unknown 01/21/2022 9:05 EST 01/21/2022 11:18 EST Zechariah Batres MD PATHOLOGY ORDERABLES Performing Organization Address City/State/[facility] Co de Phone Number [facility] [address] [place] [address] documented in this encounter Visit Diagnoses Diagnosis Multiple benign melanocytic nevi of upper and lower extremities and trunk- Primary Lentigines Other dyschromia Sun-damaged skin Other dermatitis due to solar radiation Callus of foot Corns and callosities Verruca vulgaris of lower extremity Neoplasm of uncertain behavior of skin documented in this encounter Care Teams Chemical Lab Technician Relationship Specialty Start Date End Date Dana Barrett APRN [address] [place] [id number] PCP - General Family Medicine - Primary Care 01/21/22 documented as of this encounter
--- OUTSIDE RECORDS SUMMARY | 2024-06-15 17:48 | XMS_ITS | Encounter Summary ---
Author Organization [facility] Address [address] [place] [address] Care Team Providers Care Host Name Role Phone Dana Barrett APRN Primary Care Provider [phone] Encounter Details Date Type Department Care Team (Late st Contact Info) Description 02/14/2022 Lab Requisition [facility] Pathology & Laboratory Medicine - [address] [address] Jessica Dickerson APRN [address] [place] [address] Encounter for general adult medical examination without abnormal findings; Encounter for screening for malignant neoplasm of cervix Social History Tobacco Use Types Packs/Day Years [...] Procedure Name Priority Date/Time Associated Diagnosis Comments PAP TEST Today 02/13/2022 10:30 EDT Encounter for general adult medical examination without abnormal findings Encounter for screening for malignant neoplasm of cervix HPV DNA DETECTION WITH GENOTYPING, PCR Today 02/13/2022 10:30 EDT Encounter for general adult medical examination without abnormal findings Encounter for screening for malignant neoplasm of cervix documented in this encounter Results * HUMAN PAPILLOMAVIRUS (HPV) DETECTION-HIGH RISK TYPES (02/13/2022 10:30 EDT) HPV other High Risk types, PCR Negative Negative 02/26/2022 15:31 [facility] Comment:No E6 or E7 mRNA is detected from HPV types 16,18,31,33,35,39,45,51,52,56,58,59,66, and 68 by partition setter mediated amplification. Papanicolaou smear specimen (specimen) CERVIX UTERI STRUCTURE / Unknown 02/13/2022 10:30 EDT 02/21/2022 9:34 EDT Jessica Dickerson SCHOOL AGE LEAD TEACHER MICROBIOLOGY - G ENERAL ORDERABLES [facility] [address] [place] [id number] * PAP TEST (02/13/2022 10:30 EDT) Specimens A. Cervix and/or Endocervix , ThinPrep Imaging System with Manual Evaluation 02/26/2022 15:31 [facility] Specimen Adequacy Satisfactory for Evaluation - transformation zone component present Scant due to excessive blood 02/26/2022 15:31 [facility] General Categorization Negative for intraepithelial lesion or malignancy 02/26/2022 15:31 [facility] Descriptive Diagnosis Reactive cellular changes associated with inflammation present (includes repair). Shift in juan c present suggestive of bacterial vaginosis. 02/26/2022 15:31 [facility] Educational Comments An additional slide was prepared and evaluated. 02/26/2022 15:31 [facility] Attestation By the signature below, the attending physician certifies that they have personally conducted a gross and/or microscopic examination of the described specimens and rendered or confirmed the above diagnosis. 02/26/2022 15:31 [facility] at 1530 Clinical History SEE BELOW 02/27/20 15:31 [facility] HPV The result for the Human Papillomavirus (HPV) Detection-High Risk Types is Negative. No E6 or E7 mRNA is detected from HPV types 16,18,31,33,35,39 ,45,51,52,56,58,5 9,66, and 68 by partition setter mediated amplification.Vaishali ting was performed on specimen [id number] and was resulted on 02/26/2022 1519 EDT by ROSA MARIA, LAB INSTRUMENT RESULTS IN 02/26/2022 15:31 EDT [facility] Performing Lab [facility] 02/26/2022 15:31 EDT [facility] Scanned Images 02/26/2022 15:31 EDT [facility] Papanicolaou smear specimen (specimen) CERVIX UTERI STRUCTURE / Unknown 02/13/2022 10:30 EDT 02/14/2022 12:50 EDT Jessica Dickerson APRN PATHOLOGY ORDERA BLES [facility] [address] [place] [address] documented in this encounter Visit Diagnoses Diagnosis Encounter for general adult medical examination without abnormal findings Unspecified general medical examination Encounter for screening for malignant neoplasm of cervix Screening for malignant neoplasm of the cervix documented in this encounter Care Teams Host Relationship Specialty Start Date End Date Dana Barrett APRN [address] [place] [address] PCP - General Family Medicine - Primary Care 01/21/22 documented as of this encounter
--- OUTSIDE RECORDS SUMMARY | 2024-06-15 17:48 | XMS_ITS | Encounter Summary ---
Author Organization [facility] Address [address] [place] [address] Care Team Providers Care Highway Patrol Pilot Name Role Phone Landon Moore MD Primary Care Provider [phone] Dana Barrett APRN Primary Care Provider [phone] Encounter Details Date Type Department Care Team (Late st Contact Info) Description 07/12/2020 Lab Requisition [facility] Pathology & Laboratory Medicine - [address] [address] Outr Resulting Lab, Provider Social History Tobacco [...] Procedure Name Priority Date/Time Associated Diagnosis Comments OVA/PARASITE EXAM Routine 07/12/2020 11: 26 EDT documented in this encounter Results * (ABNORMAL) OVA/PARASITE EXAM (07/12/2020 11:26 EDT) Parasite ENDOLIMAX AUBREE TROPHOZOITE S(A) 07/13/2020 14:20 EDT [facility] Comment: This organism is considered Non-pathogenic. Detection may indicate exposure to a contaminated water source, but its role as an etiologic agent causinggastrointestinal disease has NOT been established. Feces SPECIMEN FROM RECTUM / Unknown 07/12/2020 11:26 EDT 07/12/2020 22:46 EDT Provider Outr Resulting Lab MICROBIOLOGY - GENERAL ORDERABLES [facility] [address] [place] [address] documented in this encounter Visit Diagnoses Not on filedocumented in this encounter Care Teams Highway Patrol Pilot Relationship Specialty Start Date End Date Landon Moore MD [address] [facility] [address] [place] [address] PCP - General 09/24/15 01/20/22 Dana Barrett APRN [address] [place] [phone] PCP - General Family Medicine - Primary Care 01/21/22 documented as of this encounter
--- OUTSIDE RECORDS SUMMARY | 2024-06-15 17:48 | XMS_ITS | Encounter Summary ---
Author Organization [facility] Address [address] [place] [address] Care Team Providers Care Tanning Drum Operator Name Role Phone ArnoldDana gregory Macario SEPULVEDA Primary Care Provider [phone] Reason for Visit * Reason Comments Follow-up recheck spot Encounter Details Date Type Department Care Team (Late st Contact Info) Description 02/04/2022 8:10 EDT Office Visit [facility] Dermatology 5th Floor [facility] [address] [place] [address] Zechariah Batres MD [address] [address] Malignant melanoma of skin of right lower extremity (HCC-CMS) (HCC) (HCC-CMS) (Primary Dx); Folliculitis; Lentigines; Multiple benign melanocytic nevi of upper and lower extremities and trunk Social History Tobacco Use Types Packs/Day Years [...] * Patient Instructions* Zechariah Batres MD - 02/04/2022 8:10 EDT Follow these tips to protect your skin [...] conditions: Visit [email or web address] documented in this encounter Ordered Prescriptions Prescription Sig Dispensed Refills Start Date End Da te mupirocin (BACTROBAN) 2 % ointmentIndications:Folli culitis Apply topically to affected area 3 times daily. 22 g 2 02/04/2022 documented in this encounter Progress Notes * Zechariah Batres MD - 02/04/2022 0810 EDT Chief Complaint Patient presents with ??? Follow-up recheck spot Dermatologic History 0.2mm melanoma right calf 02/05 Subjective She is here today for follow-up skin check in light of her new diagnosis. She has developed some inflamed hair follicles around the biopsy site on the right calf, and she notes a history of staph infections in th skin in the past. She has rechecked all her moles, and no other lesions have been changing or are new. She did first notice changes associated with the melanoma last summer and that is what prompted her to schedule the appointment. Objective Exam of the head, neck, trunk, and extremities was notable for: -Healing biopsy site on the right calf with surrounding perifollicular papules -Numerous piedra macules in a photo distribution, and piedra and brown macules and soft papules on the trunk and extremities. Assessment and Plan 1. Malignant melanoma of skin of right lower extremity (HCC-CMS) ([facility]) 2. Folliculitis -Reviewed diagnosis and treatment expectations in detail -Mupirocin ointment - apply TID to open area (biopsy site) and surround perifollicular papules; call if worsening or not improving. 3. Lentigines 4. Multiple benign melanocytic nevi of upper and lower extremities and trunk No other significantly atypical appearing nevi on clinical exam and dermatoscopic exam of select lesions - Educated patient on the importance of sun avoidance, sun protection and regular self-skin examinations (watching for any new or changing skin lesions; in particular bleeding, ulceration, pain, rapid changes in color/shape/size) - Follow-up at least q3-4 months for skin checks, or sooner for new or changing lesions Zechariah Batres MD 02/04/22 9:32 documented in this encounter Plan of Treatment Not on file documented as of this encounter Visit Diagnoses Diagnosis Malignant melanoma of skin of right lower extremity (HCC-CMS)- Primary Folliculitis Other specified disease of hair and hair follicles Lentigines Other dyschromia Multiple benign melanocytic nevi of upper and lower extremities and trunk documented in this encounter Care Teams Tanning Drum Operator Relationship Specialty Start Date End Date Dana Barrett APRN [address] [place] [phone] PCP - General Family Medicine - Primary Care 01/21/22 documented as of this encounter
--- OUTSIDE RECORDS SUMMARY | 2024-06-15 17:48 | XMS_ITS | Encounter Summary ---
Author Organization [facility] Address [address] [place] [address] Care Team Providers Care Lumber Piler Name Role Phone Landon Moore MD Primary Care Provider [phone] Dana Barrett APRN Primary Care Provider Encounter Details Date Type Department Care Team (Late st Contact Info) Description 09/21/2021 Lab Requisition [facility] Pathology & Laboratory Medicine - [address] [address] Dana Barrett APRN [address] [place] [address] Encounter for screening for malignant neoplasm of [...] Date/Time Associated Diagnosis Comments PAP TEST Today 09/20/2021 10:25 EDT Encounter for screening for malignant neoplasm of cervix documented in this encounter Results * PAP TEST (09/20/2021 10:25 EDT) Specimens A. Cervix and/or Endocervix , ThinPrep Imaging System with Manual Evaluation 09/26/2021 14:36 EST [facility] Specimen Adequacy Unsatisfactory for evaluation - insufficient numbers of squamous epithelial cells (less than 10% of expected cellularity) possibly due to lubricant. 09/26/2021 14:36 [facility] General Categorization Unsatisfactory 09/26/2021 14:36 [facility] Educational Comments Unsatisfactory - Specimen processed and examined, but unsatisfactory for evaluation of epithelial abnormality. Recommend Pap test in 2-4 months as stated in ASCCP's 2012 Updated Guidelines. HPV testing will not be performed due to the potential for false negative results. 09/26/2021 14:36 [facility] Attestation . 09/26/2021 14:36 [facility] at 1436 Clinical History See below 09/26/20 14:36 [facility] Performing Lab [facility] 09/26/2021 14:36 [facility] Scanned Images 09/26/2021 14:36 [facility] Papanicolaou smear specimen (specimen) CERVIX UTERI STRUCTURE / Unknown 09/20/2021 10:25 EDT 09/21/2021 8:52 EDT Dana Barrett APRN PATHOLOGY ORDERABLES [facility] [address] [place] [address] documented in this encounter Visit Diagnoses Diagnosis Encounter for screening for malignant neoplasm of cervix Screening for malignant neoplasm of the cervix documented in this encounter Care Teams Lumber Piler Relationship Specialty Start Date End Date Landon Moore MD [address] [place] [address] [address] [place] [address] PCP - General 09/24/15 01/20/22 Dana Barrett APRN [address] [place] [phone] PCP - General Family Medicine - Primary Care 01/21/22 documented as of this encounter
--- OUTSIDE RECORDS SUMMARY | 2024-06-15 17:48 | XMS_ITS | Encounter Summary ---
Author Organization [facility] Address [address] [place] [address] Care Team Providers Care Business Affairs Manager Name Role Phone ArnoldDana gregory Macario SEPULVEDA Primary Care Provider [phone] Reason for Visit * Reason Comments Follow-up Spot of concern on selvin hin Encounter Details Date Type Department Care Team (Late st Contact Info) Description 01/30/2024 9:45 EDT Office Visit [facility] Dermatology 3rd Floor [address] [id number] Rashaun Payne MD [address] [facility], [address] [place] [address] Acne, unspecified acne type (Primary Dx) Social History Tobacco Use Types [...] on file documented as of this encounter Ordered Prescriptions Prescription Sig Dispensed Refills Start Date End Da te clindamycin (CLEOCIN T) 1 % external solution Apply topically to affected area daily. Apply to chin twice daily. use thin film on affected area 60 mL 11 01/30/2024 documented in this encounter Progress Notes * Rashaun Payne MD - 01/30/2024 0945 EDT Derm Hx Hx melanoma 0.2mm R calf WLE 02/2022 Nevi [place] R infraorbital (elected to monitor 12/2023) Janusz Ks Last seen 12/2023 S Follow-up (Spot of concern on chin ) Get acne chin, but this was more persistent, getting better now O Examined face L chin w/ few mild papules pustules acne A/P # Acneiform eruption/inflamed follicle Rx bpo wash and clinda stef bid prn Rtc yearly evals for melanoma Rashaun Payne MD documented in this encounter Plan of Treatment Not on file documented as of this encounter Visit Diagnoses Diagnosis Acne, unspecified acne type- Primary documented in this encounter Care Teams Business Affairs Manager Relationship Specialty Start Date End Date Dana Barrett APRN [address] [place] [address] PCP - General Family Medicine - Primary Care 01/21/22 documented as of this encounter
--- OUTSIDE RECORDS SUMMARY | 2024-06-15 17:48 | XMS_ITS | Encounter Summary ---
Author Organization [facility] Address [address] [place] [address] Care Team Providers Care Preparation Center Coordinator Name Role Phone Dana Barrett Macario SEPULVEDA Primary Care Provider [phone] Reason for Visit * Reason Onset Date Comments Results 01/22/2022 Encounter Details Date Type Department Care Team (Late st Contact Info) Description 01/22/2022 Telephone [facility] Reproductive Medicine & [place] [address] Nathalie Cantu DO Results Social History Tobacco Use Types Packs/Day Years [...] encounter Miscellaneous Notes * Telephone Encounter - Nathalie Cantu DO - 01/22/2022 1205 EST [facility] Reproductive Medicine Telephone Note Called patient to review lab results from yesterday (see below). No answer, left brief message on [employer] set-up link sent. Results for VAUGHN DYE ( ) as of 01/22/2022 12:02 Ref. Range 01/21/2022 11:03 TSH Latest Ref Range: 0.47 - 4.68 ??IU/mL 1.39 25OH Vitamin D Tot Latest Ref Range: 30 - 100 ng/mL 34 CMV Antibody IgG Latest Ref Range: See Note Negative Measles IgG Ab Latest Ref Range: See Note Positive Rubells IgG Ab Latest Ref Range: See Note Positive Varicella IgG Ab Latest Ref Range: See Note Positive Nathalie Cantu DO, PGY5 Fellow Reproductive Endocrinology & Infertility [facility] 01/22/2022 documented in this encounter Plan of Treatment Not on file documented as of this encounter Visit Diagnoses Not on filedocumented in this encounter Care Teams Preparation Center Coordinator Relationship Specialty Start Date End Date Dana Barrett APRN [address] [place] [address] PCP - General Family Medicine - Primary Care 01/21/22 documented as of this encounter
--- OUTSIDE RECORDS SUMMARY | 2024-06-15 17:48 | XMS_ITS ---
Author Organization Unknown Address [address] [place] [phone] Phone Care Team Providers Care Director Pharmaceutical Name Role Phone DARCI LOPEZ Attending Unavailable TEMOMYRON WILLETT Primary Unavailable Immunization Immunization Date Status Additional Notes Code Code System influenza, injectable, quadrivalent, preservative free 09/26/2023 Completed 150 CVX Social History Type Status Start Date End Date Code Code Syst em Smoking History Never smoker (Never Smoked) 093266035 SNOMED CT Sex Female Hospital Discharge Instructions [...] Code System No Known Drug Allergies Active 630504460 SNOMED-CT Plan of Treatment US OB COMPLETE 10/01/2023 US OB LIMITED 06/26/2023 US OB COMPLETE 05/29/2023 US OB / TV 03/27/2023 Encounters Encounter Diagnosis Start Date Code Code Sys tem care 11/18/2023 135167916 SNOMED-CT Personal Care Team Section Performer Name Performer Role Active Date Inactive Da te
--- OUTSIDE RECORDS SUMMARY | 2024-06-15 17:48 | XMS_ITS | Encounter Summary ---
Author Organization [facility] Address [address] [place] [address] Care Team Providers Care Manager Drilling Name Role Phone Arnold Dana Sorto APRN Primary Care Provider [phone] Encounter Details Date Type Department Care Team (Late st Contact Info) Description 02/13/2022 Lab Requisition [facility] Pathology & Laboratory Medicine - [address] [address] Outr Resulting Lab, Provider Social History Tobacco [...] Procedure Name Priority Date/Time Associated Diagnosis Comments CHLAMYDIA/N. GONORRHOEAE AMPLIFIED NUCLEIC ACID, THINPREP Routine 02/13/2022 10:30 EDT documented in this encounter Results * CHLAMYDIA/N. GONORRHOEAE AMPLIFIED RNA, THINPREP (02/13/2022 10:30 EDT) Neisseria gonorrhoeae Result Negative Negative 02/14/2022 15:19 EDT [facility] Chlamydia trachomatis Result Negative Negative 02/14/2022 15:19 EDT [facility] Papanicolaou smear specimen (specimen) CERVIX UTERI STRUCTURE / Unknown 02/13/2022 10:30 EDT 02/14/2022 9:27 EDT Provider Outr Resulting Lab MICROBIOLOGY - GENERAL ORDERABLES [facility] [address] [place] [address] documented in this encounter Visit Diagnoses Not on filedocumented in this encounter Care Teams Manager Drilling Relationship Specialty Start Date End Date Dana Barrett, ACCOUNT SUPPORT SPECIALIST [address] [place] [phone] PCP - General Family Medicine - Primary Care 01/21/22 documented as of this encounter
--- OUTSIDE RECORDS SUMMARY | 2024-06-15 17:48 | XMS_ITS | Encounter Summary ---
Author Organization [facility] Address [address] [place] [address] Care Team Providers Care Pressfitter Name Role Phone ArnoldDana gregory Macario SEPULVEDA Primary Care Provider [phone] Reason for Visit * Reason Comments Skin Exam Encounter Details Date Type Department Care Team (Late st Contact Info) Description 06/25/2022 7:50 EDT Office Visit [facility] Dermatology 5th Floor [facility] [address] [place] [address] Zechariah Batres MD [address] [address] History of melanoma (Primary Dx); Multiple benign melanocytic nevi of upper and lower extremities and trunk; Sun-damaged skin Social History Tobacco Use Types Packs/Day [...] * Patient Instructions* Zechariah Batres MD - 06/25/2022 7:50 EDT Follow these tips to protect your [...] Progress Notes * Zechariah Batres MD - 06/25/2022 0750 EDT Chief Complaint Patient presents with ??? Skin Exam Dermatologic History 0.2mm melanoma right calf s/p WLE 02/2022 Subjective She is here today for a skin check. Notes a few moles that she has been watching. None seem to be changing or ar bothersome. Objective Exam of the head, neck, trunk, and extremities was notable for: -Scattered piedra and brown macules and soft papules on the trunk, extremities -Light pink linear scar right calf Assessment and Plan 1. History of melanoma 2. Multiple benign melanocytic nevi of upper and lower extremities and trunk 3. Sun-damaged skin Numerous nevi, none concerning for melanoma on clinical exam and dermatoscopic exam of select lesions in clinic today. - Educated patient on the importance of sun avoidance, sun protection and regular self-skin examinations (watching for any new or changing skin lesions; in particular bleeding, ulceration, pain, rapid changes in color/shape/size) - Follow-up at least q3-4 months for skin checks, or sooner for new or changing lesions eZchariah Batres MD 06/25/22 8:38 documented in this encounter Plan of Treatment Not on file documented as of this encounter Visit Diagnoses Diagnosis History of melanoma- Primary Personal history of malignant melanoma of skin Multiple benign melanocytic nevi of upper and lower extremities and trunk Sun-damaged skin Other dermatitis due to solar radiation documented in this encounter Care Teams Pressfitter Relationship Specialty Start Date End Date Dana Barrett APRN [address] [place] [phone] PCP - General Family Medicine - Primary Care 01/21/22 documented as of this encounter
--- OUTSIDE RECORDS SUMMARY | 2024-06-15 17:48 | XMS_ITS | Encounter Summary ---
Author Organization [facility] Address [address] [place] [address] Care Team Providers Care Strain Technician Name Role Phone Landon Moore MD Primary Care Provider [phone] Reason for Visit * Reason Onset Date Comments Appointment Related 01/01/2022 Encounter Details Date Type Department Care Team (Late st Contact Info) Description 01/01/2022 Telephone [facility] Dermatology 3rd Floor [address] [id number] Karine Biggs, PA-C [address] [place] [address], [address] [place] [address] Appointment Related Social History Tobacco Use Types Packs/Day Years Used Date Smoking Tobacco: Never Assessed Sex and Gender Information Value Date Recorded Sex Assigned at Not on file Gender Identity Not on file Sexual Orientation Not on file documented as of this encounter Miscellaneous Notes * Telephone Encounter - Faustina Us - 01/01/2022 1520 EST Unable to leave message, mailbox full, that 01/21/22 appointment with Layo Biggs must be changed from 01/21/22 to 01/07/22 @ 8:10. documented in this encounter Plan of Treatment Not on file documented as of this encounter Visit Diagnoses Not on filedocumented in this encounter Care Teams Strain Technician Relationship Specialty Start Date End Date Landon Moore MD [address] [place] [address] [place] [phone] PCP - General 09/24/15 01/20/22 documented as of this encounter
--- OUTSIDE RECORDS SUMMARY | 2024-06-15 17:48 | XMS_ITS | Encounter Summary ---
Author Organization [facility] Address [address] [place] [address] Care Team Providers Care Roll Skinner Name Role Phone Landon Moore MD Primary Care Provider [phone] Dana Barrett APRN Primary Care Provider [phone] Encounter Details Date Type Department Care Team (Late st Contact Info) Description 11/16/2020 Lab Requisition [facility] Pathology & Laboratory Medicine - [address] [address] Outr Resulting Lab, Provider Social History Tobacco [...] Procedure Name Priority Date/Time Associated Diagnosis Comments ZZCOVID-19 TEST [facility] PCR Today 11/16/2020 10:45 EST COVID-19 TESTING Routine 11/16/2020 10:4 5 EST documented in this encounter Results * COVID-19 TEST [facility] PCR (11/16/2020 10:45 EST) Swab ENTIRE NASOPHARYNX / Unknown 11/16/2020 10:45 EST 11/17/2020 10:08 EST Provider Outr Resulting Lab MICROBIOLOGY - GENERAL ORDERABLES [facility] [address] [place] [address] * COVID-19 TESTING (11/16/2020 10:45 EST) COVID-19 rt-PCR Result Negative Negative 11/18/2020 15:50 EST [facility] Comment: Negative results do not preclude 2019-nCoV infection and should not be used as the sole basis for treatment or other patient management decisions. Negative results must be combined with clinical observations, patient history, and epidemiological information. This test was developed and its performance characteristics determined by [facility]. It has not been cleared or approved by the US Food and Drug Administration. FDA does not require this test to go through premarket FDA review. This test is used for clinical purposes. It should not be regarded as investigational or for research. This laboratory is certified under the Clinical Laboratory Improvement Amendments (CLIA) as qualified to perform high complexity clinical laboratory testing. This test is based on the CDC COVID-19 Emergency Use Authorization (EUA) assay, with minor modification as defined by the FDA Performed on the [employer]. Performing Lab [employer] [facility] Lab 11/18/2020 15:50 EST [facility] Swab 11/16/2020 10:4 5 EST 11/17/2020 10:08 EST Provider Outr Resulting Lab MICROBIOLOGY - GENERAL ORDERABLES [facility] [address] [place] [address] documented in this encounter Visit Diagnoses Not on filedocumented in this encounter Care Teams Roll Skinner Relationship Specialty Start Date End Date Landon Moore MD [address] [place] [address] [address] [place] [phone] PCP - General 09/24/15 01/20/22 Dana Barrett APRN [address] [place] [phone] PCP - General Family Medicine - Primary Care 01/21/22 documented as of this encounter
--- OUTSIDE RECORDS SUMMARY | 2024-06-15 17:48 | XMS_ITS | Encounter Summary ---
Author Organization [facility] Address [address] [place] [address] Care Team Providers Care Account Advisor Name Role Phone Landon Moore MD Primary Care Provider [phone] Reason for Visit * Reason Onset Date Comments Appointment Related 01/03/2022 Encounter Details Date Type Department Care Team (Late st Contact Info) Description 01/03/2022 Telephone [facility] Dermatology 5th Floor [address] [address] Karine Biggs, PA-C [address] [place] [address], [address] [place] [address] Appointment Related Social History Tobacco Use Types Packs/Day Years Used Date Smoking Tobacco: Never Assessed Sex and Gender Information Value Date Recorded Sex Assigned at Not on file Gender Identity Not on file Sexual Orientation Not on file documented as of this encounter Miscellaneous Notes * Telephone Encounter - Faustina Us - 01/03/2022 0911 EST Patient did not answer, unable to leave message, mail box full, to change appointment with Layo Biggs from 01/21/22 to 01/07/22 @ 8:10 am. documented in this encounter Plan of Treatment Not on file documented as of this encounter Visit Diagnoses Not on filedocumented in this encounter Care Teams Account Advisor Relationship Specialty Start Date End Date Landon Moore MD [address] [place] [phone] PCP - General 09/24/15 01/20/22 documented as of this encounter
--- OUTSIDE RECORDS SUMMARY | 2024-06-15 17:48 | XMS_ITS | Encounter Summary ---
Author Organization [facility] Address [address] [place] [address] Care Team Providers Care Lead Assembler Name Role Phone ArnoldDana gregory Macario SEPULVEDA Primary Care Provider [phone] Reason for Visit * Reason Comments New Patient Visit desire for conceptio n Encounter Details Date Type Department Care Team (Late st Contact Info) Description 01/21/2022 10:00 EST Initial consult [facility] - [address] [id number] Elda Olivares MD [address] [facility], [address] [place] [address] Encounter for preconception consultation (Primary Dx); Procreation management investigation and testing Social History Tobacco Use Types Packs/Day Years Used Date Smoking Tobacco: Never Smokeless Tobacco: Never Alcohol Use Standard Drinks/Week Comments Yes 0 (1 standard drink = 0.6 oz pur e alcohol) 0-4 drinks per week Sex and Gender Information Value Date Recorded Sex Assigned at Not on file Gender Identity Not on file Sexual Orientation Not on file documented as of this encounter Last Filed Vital Signs Vital Sign Reading Time Taken Comments Blood Pressure 108/64 01/21/2022 0942 EST Pulse - - Temperature - - Respiratory Rate - - Oxygen Saturation - - Inhaled Oxygen Concentration - - Weight 71.7 kg (158 lb) 01/21/2022 0942 EST Height - - Body Mass Index - - documented in this encounter Progress Notes * Nathalie Cantu, DO - 01/21/2022 1000 EST Images from the original note were not included. REPRODUCTIVE ENDOCRINOLOGY & INFERTILITY NEW PATIENT CONSULT Subjective: CC: Chief Complaint Patient presents with ??? New Patient Visit desire for conception HPI: Vaughn Kurtz is a 36 y.o. G0 presenting for discussion with regards to desire for conception. Vaughn presents today with her sister. She is not currently partnered and is hoping to conceive in the next few years, considering the use of donor sperm. She would like to start trying as soon as winter 2021. She has considered a known donor as well as using a donor through a bank. She additionally has questions about egg cryopreservation. Her history is notable for precocious puberty at age 18 months for which she was on Lupron from age[age]. 1 to 2 years later she started menses and they have been regular since that time. She currently has a ParaGard IUD in place and menses are 29 to 33 days with 5 to 7 days of bleeding each cycle.She has light bleeding for the first 1 to 2 days and the next 1 to 2 days are heavy but menses are not particularly painful. Patient's last menstrual period was 01/16/2022 (exact date). Pap 09/2021 unsatisfactory for evaluation. She is planning to schedule a follow- up visit with her PCP to have this repeated. Denies history of abnormal Paps. She has had genital warts in the past butdenies other STIs. 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 Lives in [place], [place]. Has gotten COVID-19 vaccine. Obstetrical History OB History Para Term AB Living 0 0 0 0 0 0 SAB TAB Ectopic Multiple Live Births 0 0 0 0 0 PMH PSH Past Medical History: Diagnosis Date ??? Iritis autoimmune ??? Precocious puberty Past Surgical History: Procedure Laterality Date ??? CLAVICLE SURGERY fracture Social History Family history Social History Tobacco Use ??? Smoking status: Never Smoker ??? Smokeless tobacco: Never Used Substance Use Topics ??? Alcohol use: Yes Comment: 0-4 drinks per week ??? Drug use: Never Family History Problem Relation Age of Onset ??? No Known Mother ??? Crohn's Disease Father ??? Heart Disease Father ??? Brain Cancer Paternal Grandmother ??? Heart Attack Paternal Grandfather ??? Ulcerative Colitis Paternal Aunt ??? Stroke Paternal Aunt ??? Cancer Paternal Aunt throat Medications Current Outpatient Medications on File Prior to Visit Medication Sig Dispense Refill ??? acetylcysteine (NAC ORAL) Take by mouth. ??? cholecalciferol, vitamin D3, 100 mcg (4,000 unit) tablet Take by mouth. ??? docosahexaenoic acid/epa (FISH OIL ORAL) Take by mouth. ??? TURMERIC ORAL Take by mouth. No current facility-administered medications on file prior to visit. Allergies No Known Allergies Review of Systems HEAD TENNIS PROFESSIONAL ROS Complete: Negative except as above. Objective: Female Exam BP 108/64 (BP Cuff Location: Left arm, BP Patient Position: Sitting, BP Cuff Sizes: Adult, regular) Wt 71.7 kg (158 lb) LMP 01/16/2022 (Exact Date) Wt Readings from Last 1 Encounters: 01/21/22 71.7 kg (158 lb) Gen: Appears well, no acute distress Assessment: 36 y.o. G0 female who presents to discuss desire to conceive. Plan: Vaughn was seen today for new patient visit. Diagnoses and all orders for this visit: Encounter for preconception consultation - VITAMIN D (25,OH) - TSH - RUBELLA IGG ANTIBODY - MEASLES IGG AB - VARICELLA IGG ANTIBODY - CMV IGG ?? We reviewed her clinical history as detailed above. We reviewed the expected timeline of ovarianaging with most women experiencing decreased fertility beginning in their mid 30s with accelerated decline throughout the late 30s and early 40s. Women in their young 20s have an approximate fecundity per cycle of 25%. This is compared to 34-year-old woman who have a cycle fecundity of approximately 17% and women who are age 40 who have a cycle fecundity of only 7% (see chart below). As women progress into their later 30s and early 40s there is also an increased risk of miscarriage primarily due to chromosomal abnormalities of the embryo and aneuploidies which can be carried to term such as Down syndrome. ?? We reviewed the option for conception via donor sperm including processes involved in both use of a known donor and an anonymous donor through a bank. We reviewed the pros of using an anonymous donor, namely that these individuals have already undergone STI screening and legal arrangements have already been made. If a known donor is used we require that they work through a bank to allow for proper screening/quarantining. We would also require a legal agreement between the patient and the donor outlining parental rights. ?? We reviewed the processes involved in donor sperm IUI including use of ovulation predictor kits and IUI procedure. We would expect this to have an approximate 17% chance of conception per cycle based on her age. There is no waitlist for this procedure at our center. We reviewed the expected costof purchasing a vial of sperm from an anonymous donor through a bank of approximately $300 and costof IUI of approximately $300. Prior to proceeding with donor sperm IUI would recommend testing for CMV IgG and if patient has not previously been exposed would recommend choosing a CMV negative donor. ?? We reviewed the option for egg cryopreservation for later fertilization using partner or donor sperm. We reviewed the medications, monitoring, and procedures involved. We discussed common risks ofovarian stimulation and risks of egg retrieval including low risk of moderate to sever ovarian hyperstimulation syndrome, bleeding, infection, rare damage to surrounding pelvic structures, and few eggs retrieved. Based on the study from Oneil et al, a woman aged 34 who freezes 20 mature eggs willhave an 80% probability of having one child from that egg banking cycle and 50% probability of having 2 children from that oocyte cryopreservation cycle. If only 10 eggs are frozen, the chances of one live are 60% and two live births from that cycle are 20%. Depending on her ovarian reserve, she might require 2-3 cycles to obtain 20 eggs. ?? We reviewed that ~90% of eggs survive the freeze/thaw process, and 75% of these will fertilize normally. Reviewed that, to date, defects have not been associated with oocytes having been frozen but that ICSI may lead to a small increase in rare defects such as imprinting disorders. Eggs do not with longer times stored in liquid nitrogen and that egg quality, and therefore risk of miscarriage/normal genetics of the eggs, are set at the age when frozen. We reviewed the anticipated cost of out of pocket for an egg cryopreservation cycle at [facility] of $6,000.00 and annual storage fees. There is an approximate 10-12 month waitlist for egg cryopreservation at our center. Prerequisite testing for egg freeze includes AMH for ovarian reserve testing and a panel of infectious disease labs as required by the FDA. ?? In terms of preconception counseling, recommended she begin taking a vitamin prior to conception. Will order vitamin D and TSH as well as Rubella, Varicella, and Measles IgG. We discussedthe rationale for this, that these viruses can cause significant complications to includecongenital abnormalities and the vaccines cannot be administered safely in due to presence of live attenuated virus. Counseled that if she is found to be non- immune, a booster would be recommended and be prevented for at least 1 month after booster. Lastly, we discussed options for preconception carrier screening to include targeted screening with CF and SMA versus use of a larger expanded carrier panel. We reviewed that this information can be beneficial in selecting a donor. She will consider and let us know if she would like any testing ordered. ?? At this time Vaughn is interested in proceeding with conception via donor sperm IUI. She was givenan information packet regarding this process and was counseled that the next step is to schedule a donor sperm teaching class with one of our RNs. We will follow-up results of testing as above and inform patient of results. Patient discussed and plan of care formulated with Elda Olivares MD, LUCIAN Attending. Nathalie Cantu DO, PGY5 Fellow Reproductive Endocrinology & Infertility [facility] 01/21/2022 Attestation statement: I saw and counseled the patient with the fellow at the time of the visit. I agree with the findings and the plan of care documented in the fellow's note. We spent a total of 45 minutes on the date of this encounter meeting with the patient and reviewingdocumentation/coordinating care as described in the above note. No procedures were performed at thetime of the visit. Elda Olivares MD Reproductive Endocrinology and Infertility * Kalina Akers MA - 01/21/2022 1000 EST Blood drawn via left AC using a butterfly needle. Pt tolerated procedure well . Pressure and 2x2 applied, secured with paper tape. 1 SST tube(s) sent to lab per order(s). I was told to perform blood draw by Nathalie Cantu DO. I was supervised by Elda Olivares MD (Attending) who was present and immediately available in the office suite KALINA AKERS MA 01/21/2022 11:04 documented in this encounter Plan of Treatment Not on file documented as of this encounter Procedures Procedure Name Priority Date/Time Associated Diagnosis Comments VITAMIN D (25,OH) Routine 01/21/2022 11: 03 EST Encounter for preconception consultation MEASLES IGG AB Routine 01/21/2022 11:03 EST Encounter for preconception consultation CMV IGG Routine 01/21/2022 11:03 EST Encounter for preconception consultation RUBELLA IGG ANTIBODY Routine 01/21/2022 11:03 EST Encounter for preconception consultation VARICELLA IGG ANTIBODY Routine 01/21/2022 11:03 EST Encounter for preconception consultation TSH Routine 01/21/2022 11:03 EST Encounter for preconception consultation documented in this encounter Results * CMV IGG (01/21/2022 11:03 EST) CMV Antibody, IgG Negative See Note 01/22/2022 10:47 EST [facility] Comment:Absence of detectabl e CMV IgG antibodies. A negative result generally indicates that the patient is susceptible to CMV. Blood VENOUS BLOOD / Unknown Venipuncture / Unknown 01/21/2022 11:03 EST 01/21/2022 11:23 EST Nathalie Cantu DO CHEMISTRY & BLOOD G ORDERABLES [facility] [address] [place] [address] * VARICELLA IGG ANTIBODY (01/21/2022 11:03 EST) Varicella IgG Ab Positive See Note 01/22/2022 10:48 EST [facility] Comment:Presence of detectab le Varicella Zoster virus IgG antibodies. Blood VENOUS BLOOD / Unknown Venipuncture / Unknown 01/21/2022 11:03 EST 01/21/2022 11:23 EST Nathalie Cantu DO IMMUNOLOGY AND SERO LOGY ORDERABLES Performing Organization Address [facility] Co de Phone Number [facility] [address] [place] [address] * MEASLES IGG AB (01/21/2022 11:03 EST) Measles IgG Ab Positive See Note 01/22/2022 10:51 EST [facility] Comment:Presence of detectab le measles virus IgG antibodies. Blood VENOUS BLOOD / Unknown Venipuncture / Unknown 01/21/2022 11:03 EST 01/21/2022 11:23 EST Nathalie Cantu DO IMMUNOLOGY AND SERO LOGY ORDERABLES Performing Organization Address [facility] Co de Phone Number [facility] [address] [place] [address] * RUBELLA IGG ANTIBODY (01/21/2022 11:03 EST) Rubella IgG Ab Positive See Note 01/22/2022 10:52 EST [facility] Comment:Positive for IgG ant ibodies to Rubella virus. Blood VENOUS BLOOD / Unknown Venipuncture / Unknown 01/21/2022 11:03 EST 01/21/2022 11:23 EST Nathalie Cantu DO CHEMISTRY & BLOOD G ORDERABLES Performing Organization Address [facility] Co de Phone Number [facility] [address] [place] [address] * TSH (01/21/2022 11:03 EST) TSH 1.39 0.47 - 4.68 ??IU/mL 01/21/2022 12:24 EST [facility] Blood VENOUS BLOOD / Unknown Venipuncture / Unknown 01/21/2022 11:03 EST 01/21/2022 11:23 EST Narrative [facility] - 01/21/2022 12:24 EST The results of this assay can be falsely lowered due to the consumption of Biotin. Nathalie Chester Cantu DO CHEMISTRY & BLOOD G ORDERABLES Performing Organization Address [facility] Co de Phone Number [facility] [address] [place] [address] * VITAMIN D (25,OH) (01/21/2022 11:03 EST) 25OH Vitamin D Tot 34 30 - 100 ng/mL 01/22/2022 10:50 EST [facility] Comment: Vitamin D 25,OH Interpretive Ranges: Deficiency: ??<10.0 ng/mL Insufficiency: ??10.0 - 30.0 ng/mL Sufficiency: ??30.0 - 100.0 ng/mL Toxicity: ??>100.0 ng/mL Blood VENOUS BLOOD / Unknown Venipuncture / Unknown 01/21/2022 11:03 EST 01/21/2022 11:23 EST Nathalie Chester Cantu DO CHEMISTRY & BLOOD G ORDERABLES Performing Organization Address [facility] de Phone Number [facility] [address] [place] [address] documented in this encounter Visit Diagnoses Diagnosis Encounter for preconception consultation- Primary Other procreative management counseling and advice Procreation management investigation and testing Other investigation and testing for procreative management documented in this encounter Historical Medications * This list may reflect changes made after this encounter. Medication Sig Dispensed Refills Start Date End Date TURMERIC ORAL Take by mouth. cholecalciferol, vitamin D3, 100 mcg (4,000 unit) tablet Take by mouth. acetylcysteine (NAC ORAL) Take by mouth. docosahexaenoic acid/epa (FISH OIL ORAL) Take by mouth. added in this encounter Care Teams Lead Assembler Relationship Specialty Start Date End Date Dana Barrett APRN [address] [place] [address] PCP - General Family Medicine - Primary Care 01/21/22 documented as of this encounter
--- OUTSIDE RECORDS SUMMARY | 2024-06-15 17:48 | XMS_ITS | Encounter Summary ---
Author Organization [facility] Address [address] [place] [address] Care Team Providers Care Air Pollution Engineer Name Role Phone ArnoldDana Macario SEPULVEDA Primary Care Provider [phone] Reason for Visit * Reason Comments Follow-up Skin lesions Encounter Details Date Type Department Care Team (Late st Contact Info) Description 09/23/2022 8:15 EST Office Visit [facility] Dermatology 5th [address] [phone] Rashaun Payne MD [address] [facility], [address] [place] [address] Multiple nevi (Primary Dx); Seborrheic keratoses; History of melanoma Social History Tobacco Use Types Packs/Day Years [...] as of this encounter Progress Notes * Darinel Walton MD - 09/23/2022 0815 EST Derm Hx # Melanoma R calf Rx WLE 03/08 # Nevi Last seen 07/08 S Follow-up (Skin lesions) O Examined face neck trunk both arms and legs WHS R calf. No palp R ing nodes Scattered benign appearing nevi trunk and exts Freckling Few stuck on keratoses back c/w harsha Ks A/P # Nevi, reassure # harsha Ks, reassure Sun protective measures Self/partner exams rtc 3- 4 mos/prn Rashaun Payne MD documented in this encounter Plan of Treatment Not on file documented as of this encounter Visit Diagnoses Diagnosis Multiple nevi- Primary Benign neoplasm of skin, site unspecified Seborrheic keratoses History of melanoma Personal history of malignant melanoma of skin documented in this encounter Care Teams Air Pollution Engineer Relationship Specialty Start Date End Date Dana Barrett, DERICK [address] [place] [phone] PCP - General Family Medicine - Primary Care 01/21/22 documented as of this encounter
--- OUTSIDE RECORDS SUMMARY | 2024-06-15 17:48 | XMS_ITS | Encounter Summary ---
Author Organization [facility] Address [address] [place] [address] Care Team Providers Care Special Forces Medical Sergeant Name Role Phone ArnoldDana Macario SEPULVEDA Primary Care Provider [phone] Reason for Visit * Reason Comments Follow-up Skin Lesions, lesion s of concern of pubis Encounter Details Date Type Department Care Team (Late st Contact Info) Description 01/13/2023 9:00 EST Office Visit [facility] Dermatology 5th [address] [phone] Rashaun Payne MD [address] [facility], [address] [place] [address] Multiple nevi (Primary Dx); Seborrheic keratoses Social History Tobacco Use Types Packs/Day Years [...] Progress Notes * Rashaun Payne MD - 01/13/2023 0900 EST Derm Hx Hx melanoma R calf WLE 02/2022 Nevi Harsha Ks Last seen 06/2022 S Follow-up (Skin Lesions, lesions of concern of pubis) O Examined face neck trunk both arms and legs Many benign appearing pigmented macules and papules c/w nevi, including R mons pubis region Harsha K R cheek Other harsha Ks back A/P # Nevi, reassure # harsha K reassure rtc 4 mos/prn Rashaun Payne MD documented in this encounter Plan of Treatment Not on file documented as of this encounter Visit Diagnoses Diagnosis Multiple nevi- Primary Benign neoplasm of skin, site unspecified Seborrheic keratoses documented in this encounter Care Teams Special Forces Medical Sergeant Relationship Specialty Start Date End Date Dana Barrett, DERICK [address] [place] [address] PCP - General Family Medicine - Primary Care 01/21/22 documented as of this encounter
--- OUTSIDE RECORDS SUMMARY | 2024-06-15 17:48 | XMS_ITS | Encounter Summary ---
Author Organization [facility] Address [address] [place] [address] Care Team Providers Care Stiff Leg Derrick Operator Name Role Phone Dana Barrett APRN Primary Care Provider [phone] Reason for Visit * Reason Onset Date Comments Appointment Related 01/14/2024 New/Evolving Symptoms 01/14/2024 Encounter Details Date Type Department Care Team (Late st Contact Info) Description 01/14/[address] [facility] - [facility] Dermatology [address] [place] [id number] Mychart, Generic Provider Appointment Related; New/Evolving Symptoms Social History Tobacco Use Types Packs/Day Years [...] encounter Miscellaneous Notes * Telephone Encounter - Desmond Madsen - 01/14/2024 0812 EST Patient called to ask about scheduling here at [facility]. Has been being seen at [facility] since 2021 but lives closer to our clinic and would like to transfer. As they have not seen one of our providers, sending to the nurse to see how we should proceed. Patient also states that they are experiencing an issue on their chin. Thought it was just something they had picked at, but did have swelling afterward and is worried due to their history of malignant melanoma. I recommended patient call [facility] to see if they were able to get in to see their providerfor this issue, and if not to call their PCP or visit an Urgent Care. documented in this encounter Plan of Treatment Not on file documented as of this encounter Visit Diagnoses Not on filedocumented in this encounter Care Teams Stiff Leg Derrick Operator Relationship Specialty Start Date End Date Dana Barrett APRN [address] [place] [address] PCP - General Family Medicine - Primary Care 01/21/22 documented as of this encounter
--- OUTSIDE RECORDS SUMMARY | 2024-06-15 17:48 | XMS_ITS | Encounter Summary ---
Author Organization [facility] Address [address] [place] [address] Care Team Providers Care Shift Superintendent Caustic Cresylate Name Role Phone Arnold Dana Macario SEPULVEDA Primary Care Provider [phone] Reason for Visit * Reason Onset Date Comments Appointment Related 01/24/2022 Encounter Details Date Type Department Care Team (Late st Contact Info) Description 01/24/2022 Telephone [facility] Dermatology 5th Floor [facility] [address] [place] [address] Zechariah Batres MD [address] [facility] [address] [place] [address] Appointment Related Social History Tobacco Use Types [...] encounter Miscellaneous Notes * Telephone Encounter - Miguel Singleton MA - 01/28/2022 0804 EDT Spoke to the patient regarding questions about surgical procedure. Patient stated that she had no further questions at this time. MIGUEL SINGLETON MA 01/28/2022 8:06 * Telephone Encounter - Екатерина Montoya - 01/24/2022 1511 EST Pt called, she is scheduled for the follow up with Dr. Batres on 02/04/22 (but she couldn't rememberwhich spot is being rechecked so if that could be added to the appt notes that would be great) Surgery with VALDEMAR Marie is on 01/22/22 at 9:00 as instructed. The patient did have some questions about why this is not a MOHS surgery. However I believe she will be messaging Dr. Batres via my chart to discuss. * Telephone Encounter - Miguel Singleton MA - 01/24/2022 1450 EST Called and left message for the patient regarding scheduling appointment for removal of MM on rightcalf. I would like to schedule the patient with Harriet Rice on 02/22/22 at 9:00am and then she needs to schedule a recheck of a spot with Dr. Batres in the next few weeks please. I have put the surgery spot on hold for the patient until she calls back I have checked with Dr. Batres regarding the time frame and he was okay with the date Please find me if you have any questions or the patient does MIGUEL SINGLETON MA 01/24/2022 14:52 documented in this encounter Plan of Treatment Not on file documented as of this encounter Visit Diagnoses Not on filedocumented in this encounter Care Teams Shift Superintendent Caustic Cresylate Relationship Specialty Start Date End Date Dana Barrett APRN [address] [place] [phone] PCP - General Family Medicine - Primary Care 01/21/22 documented as of this encounter
--- OUTSIDE RECORDS SUMMARY | 2024-06-15 17:48 | XMS_ITS | Referral Summary ---
Author Organization [facility] Address [address] [place] [address] Care Team Providers Care Site Specialist Name Role Phone Dana Barrett APRN Primary Care Provider [phone] Allergies No known active allergies Medications Medication [...] Signed by Harriet Rice PA-C on 02/22/2022 Social History Tobacco Use Types Packs/Day Years Used Date Smoking Tobacco: Never Smokeless Tobacco: Never Tobacco Cessation:Counseling Given: Not Answered Alcohol Use Standard Drinks/Week Comments Yes 0 (1 standard drink = 0.6 oz pur e alcohol) 0-4 drinks per week Sex and Gender Information Value Date Recorded Sex Assigned at Not on file Gender Identity Not on file Sexual Orientation Not on file Last Filed Vital Signs Vital Sign Reading Time Taken Comments Blood Pressure 108/64 01/21/2022 0942 EST Pulse - - Temperature - - Respiratory Rate - - Oxygen Saturation - - Inhaled Oxygen Concentration - - Weight 71.7 kg (158 lb) 01/21/2022 0942 EST Height - - Body Mass Index - - Plan of Treatment Not on file Care Teams Site Specialist Relationship Specialty Start Date End Date Dana Barrett APRN [address] [place] [phone] PCP - General Family Medicine - Primary Care 01/21/22
--- OUTSIDE RECORDS SUMMARY | 2024-06-15 17:48 | XMS_ITS | Encounter Summary ---
Author Organization [facility] Address [address] [place] [address] Care Team Providers Care Rubber Production Machine Operator Name Role Phone ArnoldDana Macario SEPULVEDA Primary Care Provider [phone] Reason for Visit * Reason Comments Follow-up Skin lesions. Encounter Details Date Type Department Care Team (Late st Contact Info) Description 06/02/2023 9:00 EDT Office Visit [facility] Dermatology [address]th [address] [id number] Rashaun Franco MD [address] [facility], [address] [place] [address] Multiple nevi (Primary Dx); Seborrheic keratoses; Lentigines Social History Tobacco Use Types Packs/Day Years [...] of this encounter Progress Notes * Rashaun Franco MD - 06/02/2023 0900 EDT Derm Hx Hx melanoma 0.2mm R calf WLE 02/2022 Nevi Harsha Ks Last seen 12/2022 S Follow-up (Skin lesions. ) O Examined face neck trunk both arms and legs WHS R calf No palp R ing nodes Scattered benign appearing nevi, lentigines, harsha Ks A/P # Nevi, lentigines, harsha Ks, reassure # hx melanoma rtc 6 mos/prn Sun protection RASHAUN FRANCO MD documented in this encounter Plan of Treatment Not on file documented as of this encounter Visit Diagnoses Diagnosis Multiple nevi- Primary Benign neoplasm of skin, site unspecified Seborrheic keratoses Lentigines Other dyschromia documented in this encounter Care Teams Rubber Production Machine Operator Relationship Specialty Start Date End Date Dana Barrett APRN [address] [place] [address] PCP - General Family Medicine - Primary Care 01/21/22 documented as of this encounter
--- OUTSIDE RECORDS SUMMARY | 2024-06-15 17:49 | XMS_ITS | Continuity of Care Document ---
Author Organization [facility] [place] [address] [place] [phone] Phone Care Team Providers Care Section Plotter Operator Name Role Phone Unavailable Unavailable Unavailable Procedures Procedure Date Resin One Surface Anterior Resin-based Composite - 3 Surfaces, Post erior Resin-based Composite - 3 Surfaces, Post erior Resin-based Composite -2 Surfaces, Poste rior Resin-based Composite -2 Surfaces, Poste rior Resin-based Composite - 3 Surfaces, Post erior Resin-based Composite - 3 Surfaces, Post erior Resin-based Composite - 3 Surfaces, Post erior Resin-based Composite -2 Surfaces, Poste rior Perio Charting Prophylaxis Adult Toothbrush Sample Toothpaste Sample Floss Sample Oral Hygiene Instruction > 4 Intraor Complt (incl Bitewings 08 Comprehensive Oral Evaluation 8 Prevident Toothpaste Advance Directives Directive Yes / No Effective Date File Name No Information Encounters Encounter Description Practice Location Reason(s) For Visit Diagnoses Date Provider Providers Copied on Encounter [facility] , [address] [place] [address], [id number], [place] tel:[phone] [facility] No Information 9 No Information [facility] , [address] [place] [address], [id number], tel:[phone] [facility] No Information 9 [address], [id number], tel:[phone] [facility] No Information 9 Sofia Schroeder. [address] [place] [address], [facility], . tel:[phone], [id number], tel:[phone] [facility] No Information 8 Sofia Schroeder. [address] [place] [address], [facility], . tel:[phone], [address] [place] [address], tel:[phone] [facility][Note 3] immunization update (chief complaint) No Information 8 [address], [address] [place] [address], tel:[phone] [facility] No Information 8 Sofia Schroeder. [address] [place] [address], [facility], . tel:[phone], [id number], tel:[phone] [facility] No Information 8 No Information [address], [address] [place] [address], [place] tel:[phone] [facility] No Information 8 No Information Family History Family Member Type Diagnosis Age At Onset No Information Immunizations Vaccine Date Status Comments flu (split) (3 yrs or older) administered Source: New Immunization Record Payers Payer name Insurance type Covered constitution party ID Authoriza tion(s) No Information Social History Type Description Quantity Date Captured Comments Sex Female Smoking Status No Information Chief Complaint And Reason For Visit No Information Reason For Referral Reason For Referral No Information History Of Present Illness Encounter Date Complaint History Of Prese nt Illness No Information Functional Status Date Functional Assessmen t No Information Instructions Date Instruction Additional Infor mation No Information Assessments Type Assessment Date No Information Patient Care Teams Name Effective Dates (start - stop) Status Members No Information
--- OUTSIDE RECORDS SUMMARY | 2024-06-15 17:49 | XMS_ITS | Encounter Summary ---
Author Organization [facility] Address [address] [place] [address] Care Team Providers Care Wall Washer Name Role Phone Landon Moore MD Primary Care Provider [phone] Dana Barrett APRN Primary Care Provider [phone] Encounter Details Date Type Department Care Team (Late st Contact Info) Description 01/10/2020 Lab Requisition [facility] Pathology & Laboratory Medicine - [address] [address] Unknown, Provider, Social History Tobacco Use Types Packs/Day Years [...] Associated Diagnosis Comments GIARDIA AND CRYPTOSPORIDIUM ANTIGENS Today 01/10/2020 13:07 EST documented in this encounter Results * GIARDIA AND CRYPTOSPORIDIUM ANTIGENS (01/10/2020 13:07 EST) Giardia and Cryptosporidium Cryptosporidium Antigen Neg and Giardia Antigen Neg Cryptosporidium Antigen Neg and Giardia Antigen Neg 0 11:01 EST [facility] Feces SPECIMEN FROM RECTUM / Unknown 01/10/2020 13:07 EST 01/10/2020 22:23 EST Provider Unknown MICROBIOLOGY - GENER AL ORDERABLES [facility] [address] [place] [address] documented in this encounter Visit Diagnoses Not on filedocumented in this encounter Care Teams Wall Washer Relationship Specialty Start Date End Date Landon Moore MD [address] [address] PCP - General 09/24/15 01/20/22 Dana Barrett APRN [address] [place] [phone] PCP - General Family Medicine - Primary Care 01/21/22 documented as of this encounter
--- OUTSIDE RECORDS SUMMARY | 2024-06-15 17:49 | XMS_ITS | Encounter Summary ---
Author Organization [facility] Address [address] [place] [address] Care Team Providers Care Home Health Clinical Supervisor Name Role Phone Unavailable Primary Care Provider Unavailabl e Encounter Details Date Type Department Care Team (Late st Contact Info) Description 05/16/2008 Before PRISM Converted Visit (Maple) [facility] - Maple conversion [address] [place] [address] Quinton Eason PA Social History Tobacco Use Types Packs/Day Years Used Date Smoking Tobacco: Never Assessed Sex and Gender Information Value Date Recorded Sex Assigned at Not on file Gender Identity Not on file Sexual Orientation Not on file documented as of this encounter Plan of Treatment Not on file documented as of this encounter Procedures Procedure Name Priority Date/Time Associated Diagnosis Comments [facility] Routine 05/16/2008 10:07 EDT documented in this encounter Results * LEAD (05/16/2008 10:07 EDT) Lead <5 0 - 20 ug/dl [facility] 05/16/2008 10:0 7 EDT 05/16/2008 10:09 EDT Quinton ALDRICH CHEMISTRY & BLOOD GA S ORDERABLES [facility] [address] [place] [address] documented in this encounter Visit Diagnoses Not on filedocumented in this encounter
--- OUTSIDE RECORDS SUMMARY | 2024-06-15 17:49 | XMS_ITS | Encounter Summary ---
Author Organization [facility] Address [address] [place] [address] Care Team Providers Care Crack Off Person Name Role Phone Landon Moore MD Primary Care Provider [phone] Dana Barrett APRN Primary Care Provider [phone] Encounter Details Date Type Department Care Team (Late st Contact Info) Description 01/10/2020 Lab Requisition [facility] Pathology & Laboratory Medicine - [address] [address] Unknown, Provider, Social History Tobacco Use Types [...] Priority Date/Time Associated Diagnosis Comments OVA/PARASITE EXAM Today 01/10/2020 13: 07 EST documented in this encounter Results * (ABNORMAL) OVA/PARASITE EXAM (01/10/2020 13:07 EST) Parasite Few DIENTAMOEBA FRAGILIS TROPHOZOITES(A ) 0 12:43 EST [facility] Parasite BLASTOCYSTIS HOMINIS CYSTS(A) 0 12:43 EST [facility] Comment:The role of this com mon protozoan parasite as an etiologic agent of gastrointestinal disease is controversial. If symptoms continue and other pathogens are not detected, appropriate therapy directed against Blastocystis may be considered. Parasite ENTAMOEBA COLI TROPHOZOITES(A ) 0 12:43 EST [facility] Comment:This organism is con sidered Non-pathogenic. Detection may indicate exposure to a contaminated water source, but its role as an etiologic agent causinggastrointestinal disease has NOT been established. Parasite ENDOLIMAX AUBREE TROPHOZOITES(A ) 0 12:43 EST [facility] Comment:This organism is con sidered Non-pathogenic. Detection may indicate exposure to a contaminated water source, but its role as an etiologic agent causinggastrointestinal disease has NOT been established. Feces SPECIMEN FROM RECTUM / Unknown 01/10/2020 13:07 EST 01/10/2020 22:23 EST Provider Unknown MICROBIOLOGY - GENER AL ORDERABLES [facility] [address] [place] [address] documented in this encounter Visit Diagnoses Not on filedocumented in this encounter Care Teams Crack Off Person Relationship Specialty Start Date End Date Landon Moore MD [address] [facility] [address] [place] [address] PCP - General 09/24/15 01/20/22 Dana Barrett APRN [address] [place] [phone] PCP - General Family Medicine - Primary Care 01/21/22 documented as of this encounter
--- OUTSIDE RECORDS SUMMARY | 2024-06-15 17:49 | XMS_ITS | Encounter Summary ---
Author Organization [facility] Address [address] [place] [address] Care Team Providers Care Copyright Manager Name Role Phone Unavailable Primary Care Provider Unavailabl e Encounter Details Date Type Department Care Team (Late st Contact Info) Description 05/16/2008 Results Only [facility] - Maple conversion [address] [place] [address] Quinton Eason PA Social History Tobacco Use Types Packs/Day Years Used Date Smoking Tobacco: Never Assessed Sex and Gender Information Value Date Recorded Sex Assigned at Not on file Gender Identity Not on file Sexual Orientation Not on file documented as of this encounter Plan of Treatment Not on file documented as of this encounter Procedures Procedure Name Priority Date/Time Associated Diagnosis Comments IBC Routine 05/16/2008 10:07 EDT COMPLETE BLOOD COUNT AND DIFFERENTIAL Routine 05/16/2008 10:07 EDT IRON Routine 05/16/2008 10:07 EDT FERRITIN Routine 05/16/2008 10:07 EDT documented in this encounter Results * IRON (05/16/2008 10:07 EDT) Iron 70 60 - 180 ug/dl [facility] 05/16/2008 10:0 7 EDT 05/16/2008 10:09 EDT Quinton ALDRICH CHEMISTRY & BLOOD GA S ORDERABLES [facility] [address] [place] [address] * IBC (05/16/2008 10:07 EDT) TIBC 298 265 - 497 ug/dl [facility] 05/16/2008 10:0 7 EDT 05/16/2008 10:09 EDT Quinton ALDRICH CHEMISTRY & BLOOD GA S ORDERABLES Performing Organization Address [facility] Co de Phone Number [facility] [address] [place] [address] * FERRITIN (05/16/2008 10:07 EDT) Ferritin 18 10 - 291 ng/mL [facility] 05/16/2008 10:0 7 EDT 05/16/2008 10:09 EDT Quinton ALDRICH CHEMISTRY & BLOOD GA S ORDERABLES Performing Organization Address [facility] de Phone Number [facility] [address] [place] [address] * HEMAGRAM AND DIFFERENTIAL (05/16/2008 10:07 EDT) WBC 5.02 4.0 - 12.4 K/cmm [facility] RBC 4.54 3.86 - 5.04 M/cmm [facility] Hemoglobin 13.1 11.6 - 15.2 gm/dl [facility] HCT 38.2 34.9 - 44.4 % [facility] MCV 84 81 - 98 fl [facility] MCH 28.9 26.7 - 33.3 pg [facility] MCHC 34.4 32.1 - 35.9 gm/dl [facility] PLT 247 141 - 320 K/cmm [facility] RDW-CV 14.4 11.7 - 14.6 % [facility] % Neutrophils 64.6 45.5 - 79.7 % [facility] % Lymphocytes 28.5 15.0 - 46.8 % [facility] % Monocytes 5.3 1.8 - 12.0 % [facility] % Eosinophils 1.1 0.6 - 6.9 % [facility] % Basophils 0.5 0.2 - 1.4 % [facility] ABS Neutrophils 3.25 2.20 - 8.85 K/cmm [facility] ABS Lymphs 1.43 1.09 - 3.30 K/cmm [facility] ABS Monocytes 0.26 0.1 - 0.8 K/cmm [facility] ABS Eosinophils 0.05 0.03 - 0.61 K/cmm [facility] ABS Basophils 0.02 0.01 - 0.11 K/cmm [facility] Type of Diff: Automated [facility] 05/16/2008 10:0 7 EDT 05/16/2008 10:09 EDT Quinton ALDRICH PACKAGES & DNA PROBE ORDERABLES Performing Organization Address City/State/[facility] Co de Phone Number [facility] [address] [place] [address] documented in this encounter Visit Diagnoses Not on filedocumented in this encounter
--- OUTSIDE RECORDS SUMMARY | 2024-06-15 17:49 | XMS_ITS | Encounter Summary ---
Author Organization [facility] Address [address] [place] [address] Care Team Providers Care Calciner Operator Name Role Phone Unavailable Primary Care Provider Unavailabl e Encounter Details Date Type Department Care Team (Late st Contact Info) Description 02/20/2009 Before PRISM Converted Visit (Maple) [facility] - Maple conversion [address] [place] [address] Veronica Finley PA [address] [place] [address] Social History Tobacco Use Types Packs/Day Years Used Date Smoking Tobacco: Never Assessed Sex and Gender Information Value Date Recorded Sex Assigned at Not on file Gender Identity Not on file Sexual Orientation Not on file documented as of this encounter Plan of Treatment Not on file documented as of this encounter Procedures Procedure Name Priority Date/Time Associated Diagnosis Comments CYTOPATHOLOGY Routine 02/20/2009 0:00 EDT documented in this encounter Results * CYTOPATHOLOGY (02/20/2009 0:00 EDT) Pathology Report: CYTOPATHOLOGY REPORT ? Reports generated via electronic interface contain original data; ? however they are lacking the format of the original report. ? Caution should be taken when reading/interpreti ng unformatted reports. ? Name: ? VAUGHN KURTZ ? Accession #: ? [id number] ? : ? 1985 (Age: 23) ??F ?Collect Date: ? 02/20/2009 ? Location: ? [facility] ? Receive Date: ? 02/21/2009 ? Provider: ?VERONICA FINLEY PA ? Copy to: ? Specimen/Source: ?Pap Test, Cervix/Endocervix, ThinPrep Imaging System ? with manual evaluation ? Last Menstrual Period: ? 03/20/09 ? SPECIMEN ADEQUACY ? Satisfactory for Evaluation ? - transformation zone component present ? GENERAL CATEGORIZATION ? Negative for Intraepithelial Lesion or Malignancy ? INTERPRETATION ? Fungal organisms present morphologically consistent with Candi species. ? Document reviewed and electronically signed by: ? Lynan Jan, CT(ASCP) ? Report Date: ??02/22/2009 15:27 ? End of Report ? [facility] 02/20/2009 02/21/2009 Veronica ALDRICH PATHOLOGY ORDER LACY [facility] [address] [place] [address] documented in this encounter Visit Diagnoses Not on filedocumented in this encounter
--- OUTSIDE RECORDS SUMMARY | 2024-06-15 17:49 | XMS_ITS | Encounter Summary ---
Author Organization [facility] Address [address] [place] [address] Care Team Providers Care Protection Manager Name Role Phone Unavailable Primary Care Provider Unavailabl e Encounter Details Date Type Department Care Team (Late st Contact Info) Description 10/28/2001 Results Only [facility] - Maple conversion [address] [place] [address] Charlie Vu Social History Tobacco Use Types Packs/Day Years Used Date Smoking Tobacco: Never Assessed Sex and Gender Information Value Date Recorded Sex Assigned at Not on file Gender Identity Not on file Sexual Orientation Not on file documented as of this encounter Plan of Treatment Not on file documented as of this encounter Procedures Procedure Name Priority Date/Time Associated Diagnosis Comments SURGICAL PATHOLOGY Routine 10/28/2001 0:00 EST documented in this encounter Results * SURGICAL PATHOLOGY (10/28/2001 0:00 EST) Pathology Report: SURGICAL PATHOLOGY REPORT Reports generated via electronic interface contain original data; however they are lacking the format of the original report. Caution should be taken when reading/interpreti ng unformatted reports. Name: ? VAUGHN DYE ? Accession #: ? [id number] ? : ? 1985 (Age: 16) ??F ? Collect Date: ? 10/28/2001 ? Location: ? [facility] ? Receive Date: ? 10/28/2001 ? Provider: CHARLIE VU MD Copy to: SUZY HEALY MD ? Final Pathologic Diagnosis: ? Skin of arm, right upper, excisional biopsy: 1. ?Melanocytic nevus, compound type, with unusual architectural features and mild cytologic atypia. ? - ??Lesion associated with epidermal and dermal reparative change. ??See comment. - ??Lesion extends to edge of biopsy specimen. Comment: ? We agree with you that the nevus shows a mild degree of architectural disorder and cytologic atypia. ??Centrally, there is concomitant epidermal and dermal repair, the later consisting of dermal sclerosis. ??These features are suggestive of trauma induced change and may account for the change in size noted clinically. ??The lesion is transected at the inked margins, including deep, of the biopsy specimen. ??(Dr. Arango)/[facility] Microscopic Description: ? Sections consist of an excisional biopsy of a low papule. ??The epidermis varies to a mild degree in thickness and rete architecture. ??Centrally, there is flattening of the rete architecture associated with reparative change of the keratinocytes. The papule is formed by a compound proliferation of melanocytes that is predominated by the dermal component. ??The intraepidermal component consists of nests and individual cells. ??The intraepidermal component is most dense at the periphery of the papule where it is composed predominantly of nests. In the area of reparative epidermal change, individual cells predominate and are focally crowded along the dermal-epidermal junction. ??The dermal melanocytes form small clusters, cords, and strands that show dimunition in size with descent. ??The melanocytes are slightly enlarged and show a mild degree of nuclear size and shape variation. ??The dermal melanocytes show evidence of maturation with descent. ??There is irregular dermal fibrosis accompanied by a reactive vascular pattern. ??The fibrosis is most pronounced in the area of epidermal repair. ??(Dr. Arango)/[facility] Document reviewed and electronically signed by: Amy Arango MD Report ??Date: 11/02/2001 15:34 By the signature above, the attending physician certifies that he/she has personally conducted a gross and/or microscopic examination of the described specimens and rendered or confirmed the above diagnosis. Specimen(s) Received: ? [facility] [id number] (4) Clinical History: ? Skin lesion ? Gross Description: ? Four slides are received for review from [facility], one each labelled [id number], [id number] step 1, [id number] step 2, [id number] step 3. ?? End of Report [facility] 10/28/2001 10/28/2001 11: 36 EST Charlie Vu PATHOLOGY ORDERABLES [facility] [address] [place] [address] documented in this encounter Visit Diagnoses Not on filedocumented in this encounter
--- OUTSIDE RECORDS SUMMARY | 2024-06-15 17:49 | XMS_ITS | Encounter Summary ---
Author Organization [facility] Address [address] [place] [address] Care Team Providers Care Senior Clinical Research Associate Name Role Phone Unavailable Primary Care Provider Unavailabl e Encounter Details Date Type Department Care Team (Late st Contact Info) Description 03/01/2008 Results Only [facility] - Maple conversion [address] [place] [address] Inez Herrera, COMPUTATOR [address] [place] [address] Social History Tobacco Use Types Packs/Day Years Used Date Smoking Tobacco: Never Assessed Sex and Gender Information Value Date Recorded Sex Assigned at Not on file Gender Identity Not on file Sexual Orientation Not on file documented as of this encounter Plan of Treatment Not on file documented as of this encounter Procedures Procedure Name Priority Date/Time Associated Diagnosis Comments CYTOPATHOLOGY Routine 03/01/2008 0:00 EDT documented in this encounter Results * CYTOPATHOLOGY (03/01/2008 0:00 EDT) Pathology Report: CYTOPATHOLOGY REPORT Reports generated via electronic interface contain original data; however they are lacking the format of the original report. Caution should be taken when reading/interpreti ng unformatted reports. Name: ? DYE VAUGHN BAILON ? Accession #: ? [id number] : ? 1985 (Age: 22) ??F ?Collect Date: ? 03/01/2008 Location: ? [facility] ? Receive Date: ? 03/02/2008 Provider: ?INEZ HERRERA COMPUTATOR Copy to: ? Specimen/Source: ?ThinPrep Pap Test, Cervix/Endocervix, processed on [email or web address] ThinPrep Imaging System, with manual evaluation Last Menstrual Period: ? 01/19/08 Hormonal/Contracep tive Status: ? Oral contraceptives ? SPECIMEN ADEQUACY ? Satisfactory for Evaluation - transformation zone component present GENERAL CATEGORIZATION ? Negative for Intraepithelial Lesion or Malignancy ? Document reviewed and electronically signed by: ? Clarisa Moreno, SCT(ASCP) ? Report Date: ??03/08/2008 10:02 End of Report [facility] 03/01/2008 03/02/2008 Inez Herrera NP PATHOLOGY ORDERABLES [facility] [address] [place] [address] documented in this encounter Visit Diagnoses Not on filedocumented in this encounter
[2024-06-15 21:32] LABS: Anion Gap 7.1 mmol/L (3-11); BUN 19 mg/dL (7-18); CO2 27.9 mmol/L (21.0-32.0); CREATININE 0.7 mg/dL (0.55-1.02); Calcium 9.2 mg/dL (8.5-10.1); Chloride 103 mmol/L (98-107); Estimated GFR 114.16 (mL/min/1.73m2); Glucose 139 mg/dL (74-106); Sodium 138 mmol/L (136-145)
== END 2024-06-15 17:41 | disposition home or self-care (01) ==
LOC: NCHCN 17:40
PROVIDERS: PCP Nurse Practitioner Family; Visit Provider Family Medicine
DX: E87.1 Hypo-osmolality and hyponatremia (principal)
CPT/HCPCS: 80048

== ENCOUNTER 2025-06-17 17:01 | Outpatient (REF) | payer MEDICAID, SELFPAY ==
[2025-06-17 15:16] LABS: HCT 37.1 % (36.0-46.0); HGB 12.3 g/dL (11.2-15.7); MCH 28.5 pg (27.0-33.0); MCHC 33.2 % (32.0-36.0); MCV 86 fL (80-95); MPV 9.8 fL (8.0-11.0); Platelet Count 286 10^3/uL (130-400); RBC 4.32 10^6/uL (3.93-5.22); RDW 12.1 % (11.7-14.6); RDW-SD 38.2 fL; WBC 4.41 10^3/uL (4.4-10.8)
[2025-06-17 15:33] LABS: ALT 24 U/L (14-59); AST 18 U/L (15-37); Albumin 3.8 g/dL (3.4-5.0); Alkaline Phosphatase 73 U/L (46-116); Anion Gap 5.8 mmol/L (3-11); BUN 17 mg/dL (7-18); Bilirubin, Total 0.4 mg/dL (0.2-1.0); CO2 29.2 mmol/L (21.0-32.0); Calcium 8.8 mg/dL (8.5-10.1); Calculated LDL 108 mg/dL (<100); Chloride 103 mmol/L (98-107); Cholesterol 174 mg/dL (<200); Estimated GFR 117.75 (mL/min/1.73m2); Glucose 97 mg/dL (74-106); HDL Cholesterol 56 mg/dL (>or=50); Magnesium 2.2 mg/dL (1.8-2.4); Potassium 4.3 mmol/L (3.5-5.1); Sodium 138 mmol/L (136-145); Total Protein 7.1 g/dL (6.4-8.2); Triglyceride 50 mg/dL (<150)
== END 2025-06-17 17:02 | disposition home or self-care (01) ==
LOC: NCHCN 17:01
PROVIDERS: PCP Nurse Practitioner Family; Visit Provider Physician Assistant
DX: Z00.00 Encounter for general adult medical examination without abnormal findings (principal); Z13.0 Encounter for screening for diseases of the blood and blood-forming organs and certain disorders involving the immune mechanism; Z13.220 Encounter for screening for lipoid disorders; G43.909 Migraine, unspecified, not intractable, without status migrainosus
CPT/HCPCS: 80053; 80061; 85027; 83735